=== PATIENT | female | born 1970 | race Caucasian/White ===

== ENCOUNTER 2016-11-13 16:37 | Emergency (ER) | payer MEDICAID ==
[~2016-11-13] VITALS: Ht 170.2 cm; Wt 77.4 kg
[~2016-11-13 16:37] MED LIST: CEPH500C3 PO; TRAD5TAB PO
[2016-11-13 17:00] VITALS: BP 118/85; PULSE 97; RESP 16; TEMP 98.4; O2SAT 100
--- NOTE | 2016-11-13 18:12 | PD ---
HPI Chief Complaint: Medication Refill Request Time Seen by Provider: 18:07 Travel History International Travel<30 days: No Contact w/Intl Traveler<30days: No Traveled to known affect area: No History of Present Illness HPI 46-year-old female presents to the emergency department requesting medication refills on all of her medications. She is diabetic and has high blood pressure and takes Levemir and metoprolol. She does not have the dosages of her medications. Her primary care provider is Dr. Ruiz and cannot get her in. They told her to come in as a walk in on but she cannot go in case she has to work and does not want to lose her job. She has no medical complaints at this time. She denies fever, chills, nausea, vomiting. Denies chest, shortness of breath, abdominal pain, change in stool or urine. Allergic to Cipro, tramadol, acetaminophen. No other modifying factors or associated signs or symptoms. PFSH Past Medical History Hx Anticoagulant Therapy: No Asthma: Yes Cardiovascular Problems: Yes (HTN) Chemotherapy: No Diabetes: Yes Diminished Hearing: No Hypertension: Yes Respiratory: Yes ?: Not Past Surgical History Hysterectomy: Yes Social History Alcohol Use: No (PT DENIES) Tobacco Use: Yes (11/14 PPD) Substance Use: No (PT DENIES) Allergies-Medications (Allergen,Severity, Reaction): Coded Allergies: Cipro (Verified Allergy, Intermediate, Hives, 11/13/16) Tramadol/Acetaminophen (Verified Allergy, Intermediate, Hives, 11/13/16) Reported Meds & Prescriptions Reported Meds & Active Scripts Active Reported Levemir Inj (Insulin Detemir) 1,000 unit/ 10 ML Vial 25 Units SQ HS Do not mix with any other Insulin. Lipitor (Atorvastatin Calcium) 20 Mg Tab 20 Mg PO HS Gabapentin 300 Mg Cap 300 Mg PO BID Fenofibrate Unknown Strength Tab Unknown Dose PO HS Metoprolol Tartrate 25 Mg Tab 25 Mg PO HS Review of Systems Except as stated in HPI: all other systems reviewed are Neg Physical Exam Narrative GENERAL: Well-nourished, well-developed female patient, in no acute distress SKIN: Warm and dry. HEAD: Atraumatic. Normocephalic. EYES: Pupils equal and round. No scleral icterus. No injection or drainage. ENT: Mucosa pink and moist. Airway patent. NECK: Trachea midline. CARDIOVASCULAR: Regular rate and rhythm. No murmur appreciated. RESPIRATORY: No accessory muscle use. Clear to auscultation. Breath sounds equal bilaterally. GASTROINTESTINAL: Abdomen soft, non-tender, nondistended. Hepatic and splenic margins not palpable. Bowel sounds are active 4 quadrants. MUSCULOSKELETAL: No obvious deformities. No clubbing. No cyanosis. No edema. NEUROLOGICAL: Awake and alert. Oriented 3. No obvious cranial nerve deficits. Motor grossly within normal limits. Normal speech. PSYCHIATRIC: Appropriate mood and affect; insight and judgment normal. Data Data Last Documented VS Vital Signs Date Time Temp Pulse Resp B/P Pulse Ox O2 Delivery O2 Flow Rate FiO2 11/13/16 18:12 16 11/13/16 17:00 98.4 97 118/85 100 MDM Medical Decision Making Medical Screen Exam Complete: Yes Emergency Medical Condition: Yes Medical Record Reviewed: Yes Differential Diagnosis Medication refill, malingering, medical clearance Narrative Course 46-year-old female presents requesting medication refills on all her prescriptions. She has no medical complaints at this time. She is diabetic and hypertensive and takes Levemir and metoprolol. She does not know the dosages. Patient called the pharmacy to verify dosages. 1839: Dosage verified and medication refills for metoprolol and Levemir provided. Patient is medically cleared and stable for discharge. Discussed reasons to return to the emergency department. Instructed patient to follow up with primary care provider. Patient agrees with treatment plan. The patients vital signs are stable and the patient is stable for outpatient follow-up and treatment. Patient discharged home, stable and in no acute distress. Diagnosis Primary Impression: Medication refill Referrals: Primary Care Physician Patient Instructions: General Instructions, Medication Refill, ED Additional Instructions: Follow-up with her primary care provider Return to the emergency department immediately with worsening of symptoms Med/Other Pt SpecificInfo: Prescription(s) given Scripts Insulin Detemir Inj (Levemir Inj)1,000 unit/ 10 ML Vial25 Units SQ HS #1 VIAL Ref 0 Do not mix with any other Insulin. Prov:Maryuri Duke 11/13/16 Metoprolol Tartrate 25 Mg Tab25 Mg PO HS #30 TAB Ref 0 Prov:Maryuri Duke 11/13/16 Disposition: DISCHARGE HOME Condition: Stable Maryuri Duke Nov 13, 2016 18:12
[2016-11-13] MEDS ORDERED: METO25TA3 PO ×2 (18:25→18:39)
[2016-11-13] MEDS ORDERED: GABA300C5 PO (18:25)
[2016-11-13] MEDS ORDERED: FENO160T PO (18:25)
[2016-11-13] MEDS ORDERED: LIPI20TA PO (18:25)
[2016-11-13] MEDS ORDERED: LEVEMIR SQ ×2 (18:25→18:39)
== END 2016-11-13 18:57 | disposition home or self-care (01) ==
LOC: PHEFT 16:37
DX: E11.9 Type 2 diabetes mellitus without complications (principal); I10 Essential (primary) hypertension; Z76.0 Encounter for issue of repeat prescription; Z72.0 Tobacco use; Z87.09 Personal history of other diseases of the respiratory system; Z79.84 Long term (current) use of oral hypoglycemic drugs
CPT/HCPCS: 99281

== ENCOUNTER 2017-01-21 21:28 | Emergency (ER) | payer MEDICAID ==
[~2017-01-21] VITALS: Ht 167.6 cm; Wt 78.4 kg
[~2017-01-21 21:28] MED LIST changes: -CEPH500C3 PO; +FENO160T PO; +GABA300C5 PO; +LEVEMIR SQ; +LIPI20TA PO; +METO25TA3 PO; -TRAD5TAB PO
[2017-01-21 21:33] VITALS: BP 125/88; PULSE 95; RESP 18; TEMP 98.7; O2SAT 96
[2017-01-22] MEDS ORDERED: SODIUM CHLOR 0.9% 1000 ML INJ 1,000 ML IV SCH (00:47)
--- NOTE | 2017-01-22 00:47 | PD ---
HPI Chief Complaint: Musculoskeletal Complaint Time Seen by Provider: 00:45 Travel History International Travel<30 days: No Contact w/Intl Traveler<30days: No Traveled to known affect area: No History of Present Illness HPI 46-year-old female presents to the emergency department by private transportation for evaluation of low back pain. Patient states she has had this for some time and is progressive worsening with activity and at rest. Patient denies any injury or fall. Patient also reports that she is diabetic with diabetic neuropathy. Patient states she takes gabapentin without symptom relief. Patient states she last saw her primary care provider 3 months ago. Patient states they've been adjusting her 11 year back and forth. She notes that her blood sugars have remained high. Patient does not report any lower extremity numbness tingling or weakness beyond her chronic diabetic foot neuropathy and does not report any saddle anesthesia or bladder or bowel dysfunction. Patient states that she has pain and her primary provider does not supply her with any pain medication. Patient does receive ibuprofen but states this is upsetting her stomach. The patient rates her pain 8/10 in intensity. Patient also reports that she has also developed a cough that has been coughing so much that she coughs up streaks of blood. Patient denies any fever chills shortness of breath wheezing or chest pain or pleuritic chest pain. PFSH Past Medical History Narrative Medical Hypertension Diabetes chronic pain syndrome; no tobacco use; Nursing notes reviewed Hx Anticoagulant Therapy: No Asthma: Yes Cardiovascular Problems: Yes (HTN) High Cholesterol: Yes Chemotherapy: No Diabetes: Yes Patient Takes Glucophage: No Diminished Hearing: No Hypertension: Yes Respiratory: Yes ?: Not Past Surgical History Hysterectomy: Yes Social History Alcohol Use: No (PT DENIES) Tobacco Use: No (quit one year ago) Substance Use: No (PT DENIES) Allergies-Medications (Allergen,Severity, Reaction): Coded Allergies: Cipro (Verified Allergy, Intermediate, Hives, 01/21/17) Tramadol/Acetaminophen (Verified Allergy, Intermediate, Hives, 01/21/17) Reported Meds & Prescriptions Reported Meds & Active Scripts Active Levemir Inj (Insulin Detemir) 1,000 unit/ 10 ML Vial 25 Units SQ HS Do not mix with any other Insulin. Metoprolol Tartrate 25 Mg Tab 25 Mg PO HS Reported Gabapentin 300 Mg Cap 300 Mg PO BID Fenofibrate Unknown Strength Tab Unknown Dose PO HS Review of Systems Except as stated in HPI: all other systems reviewed are Neg General / Constitutional: No: Fever, Chills Eyes: No: Diploplia, Blurred Vision, Visual changes HENT: No: Headaches, Vertigo, Neck Pain Cardiovascular: Positive: Syncope (near v possible brief syncope), No: Chest Pain or Discomfort Respiratory: No: Shortness of Breath Gastrointestinal: No: Nausea, Vomiting, Abdominal Pain Genitourinary: Positive: Flank Pain, No: Decreased Urinary Output Musculoskeletal: Positive: Myalgias, Arthralgias, Pain (back pain) Skin: No Rash Neurologic: Positive: Headache, No: Weakness, Dizziness Psychiatric: Positive: Anxiety Hematologic/Lymphatic: No: Lymph Node Enlargement Physical Exam Narrative GENERAL: Well-developed well-nourished female in no acute distress no respiratory distress SKIN: Warm and dry. HEAD: Normocephalic. EYES: No scleral icterus. No injection or drainage. NECK: Supple, trachea midline. No JVD or lymphadenopathy. CARDIOVASCULAR: Regular rate and rhythm without murmurs, gallops, or rubs. RESPIRATORY: Breath sounds equal bilaterally. No accessory muscle use. GASTROINTESTINAL: Abdomen soft, non-tender, nondistended. MUSCULOSKELETAL: No cyanosis, or edema. BACK: Nontender without obvious deformity. Bilateral CVA tenderness. Data Data Last Documented VS Vital Signs Date Time Temp Pulse Resp B/P Pulse Ox O2 Delivery O2 Flow Rate FiO2 01/21/17 21:33 98.7 95 18 125/88 96 Room Air Orders Urinalysis - C+S If Indicated (01/22/17 00:47) Iv Access Insert/Monitor (01/22/17 00:47) Ecg Monitoring (01/22/17 00:47) Oximetry (01/22/17 00:47) Sodium Chlor 0.9% 1000 Ml Inj (Ns 1000 M (01/22/17 00:47) Electrocardiogram (01/22/17 00:47) Ed Urine Pregnancytest Poc (01/22/17 00:47) Blood Glucose (01/22/17 00:47) Urine Culture (01/22/17 00:50) Labs Laboratory Tests Test 01/22/17 00:50 Urine Color YELLOW Urine Turbidity SLIGHT Urine pH 5.5 Urine Specific [place] 1.033 Urine Protein NEG mg/dL Urine Glucose (UA) 1000 OR GREATER mg/dL Urine Ketones NEG mg/dL Urine Occult Blood NEG Urine Nitrite NEG Urine Bilirubin NEG Urine Leukocyte Esterase NEG Urine WBC 15-19 /hpf Urine Squamous Epithelial > 8 /hpf Cells Urine Bacteria OCC /hpf Urine Mucus OCC /lpf Microscopic Urinalysis Comment CULTURE INDICATED MDM Medical Decision Making Medical Screen Exam Complete: Yes Emergency Medical Condition: Yes Medical Record Reviewed: Yes Differential Diagnosis Flank pain, UTI, pyelonephritis, renal colic, biliary colic, pancreatitis, gastritis, appendicitis Narrative Course Plan for IV access to be obtained and specimens collected and sent for resulting Informed by patient's nurse that she decided to leave without any intervention and studies were canceled Diagnosis Primary Impression: Left against medical advice Additional Instructions: AMA Disposition: 07 AGAINST MEDICAL ADVICE Condition: Stable Genny Zazueta MD Jan 22, 2017 00:47 Genny Zazueta MD Jan 22, 2017 00:47
[2017-01-22 01:07] LABS: BLOOD, URINE NEG (NEG); KETONE, URINE NEG (NEG); NITRITE,URINE NEG (NEG); PH, URINE 5.5 (5.0-8.5)
[2017-01-22 01:08] LABS: GLUCOSE,URINE 1000 OR GREATER mg/dL (NEG)
[2017-01-22 01:30] LABS: URINE COLOR YELLOW (YELLW/STRAW)
[2017-01-22 01:31] LABS: MUCUS URINE OCC /lpf (OCC); WBC, URINE 15-19 /hpf (0-5)
[2017-01-22 01:32] LABS: BACTERIA, URINE OCC /hpf; COMMENT (UR) CULTURE INDICATED; CULTURE IF INDICATED CULTURE INDICATED; SQUAMOUS EPITHELIAL CELL URINE > 8 /hpf (0-5)
[2017-01-22] MEDS ORDERED: ROBA500T PO (20:24)
[2017-01-22] MEDS ORDERED: NAPR500T PO (20:24)
== END 2017-01-22 01:15 | disposition left against medical advice (07) ==
LOC: PHED 21:28
DX: M54.5 Low back pain (principal); G89.4 Chronic pain syndrome; E78.00 Pure hypercholesterolemia, unspecified; R82.90 Unspecified abnormal findings in urine; E11.40 Type 2 diabetes mellitus with diabetic neuropathy, unspecified; I10 Essential (primary) hypertension; Z79.4 Long term (current) use of insulin
CPT/HCPCS: 81001; 84703; 87086; 99283

== ENCOUNTER 2017-01-22 18:15 | Emergency (ER) | payer MEDICAID ==
[~2017-01-22] VITALS: Ht 167.6 cm; Wt 78.6 kg
[~2017-01-22 18:15] MED LIST changes: -LIPI20TA PO
[2017-01-22 18:29] VITALS: BP 131/88; PULSE 95; RESP 16; TEMP 98.9; O2SAT 95
[2017-01-22] MEDS ORDERED: SODIUM CHLOR 0.9% 1000 ML INJ 1,000 ML IV SCH (18:50)
[2017-01-22] MEDS ORDERED: SODIUM CHLORIDE 0.9% FLUSH 5 ML FLUSH IVF PRN (19:00)
--- NOTE | 2017-01-22 19:03 | PD ---
HPI Chief Complaint: lower back/flank pain Time Seen by Provider: 18:47 Travel History International Travel<30 days: No Contact w/Intl Traveler<30days: No Traveled to known affect area: No History of Present Illness HPI 46-year-old female here for evaluation of lower back pain and right flank pain. The patient reports that she has had these symptoms for over a month, however they've been worse for last 2 days. Pain was worse last night and the patient presented to the emergency department, was seen by a physician, full workup ordered, however the patient left AMA before results were obtained. She reports history of diabetic neuropathy. No trauma. No urinary or bowel incontinence or retention. She had not noted any urinary symptoms until returning home yesterday evening after leaving AMA at which time she noted some dysuria. No paresthesias or motor deficits. Pain is moderate, intermittent, worse with movement and palpation. No nausea or vomiting. No fevers or chills. PFSH Past Medical History Hx Anticoagulant Therapy: No Asthma: Yes Cardiovascular Problems: Yes (HTN) High Cholesterol: Yes Chemotherapy: No Diabetes: Yes Diminished Hearing: No Hypertension: Yes Respiratory: Yes Past Surgical History Hysterectomy: Yes Social History Alcohol Use: No (PT DENIES) Tobacco Use: No (quit one year ago) Substance Use: No (PT DENIES) Allergies-Medications (Allergen,Severity, Reaction): Coded Allergies: Cipro (Verified Allergy, Intermediate, Hives, 01/22/17) Tramadol/Acetaminophen (Verified Allergy, Intermediate, Hives, 01/22/17) Reported Meds & Prescriptions Reported Meds & Active Scripts Active Levemir Inj (Insulin Detemir) 1,000 unit/ 10 ML Vial 25 Units SQ HS Do not mix with any other Insulin. Metoprolol Tartrate 25 Mg Tab 25 Mg PO HS Reported Gabapentin 300 Mg Cap 300 Mg PO BID Fenofibrate Unknown Strength Tab Unknown Dose PO HS Review of Systems Except as stated in HPI: all other systems reviewed are Neg Physical Exam Narrative GENERAL: Well-developed, well-nourished, sitting on stretcher, eating [place] food SKIN: Warm and dry. No rash. HEAD: Atraumatic. Normocephalic. EYES: Pupils equal and round. No scleral icterus. No injection or drainage. ENT: Mucous membranes pink and moist. NECK: Trachea midline. No JVD. CARDIOVASCULAR: Regular rate and rhythm. RESPIRATORY: No accessory muscle use. Clear to auscultation. Breath sounds equal bilaterally. GASTROINTESTINAL: Abdomen soft, non-tender, nondistended. MUSCULOSKELETAL: No obvious deformities. No clubbing. No cyanosis. No edema. No midline vertebral step-off or tenderness. Mild right CVA tenderness. No left CVA tenderness. NEUROLOGICAL: Awake and alert. No obvious cranial nerve deficits. Motor grossly within normal limits. Normal speech. PSYCHIATRIC: Appropriate mood and affect; insight and judgment normal. Data Data Last Documented VS Vital Signs Date Time Temp Pulse Resp B/P Pulse Ox O2 Delivery O2 Flow Rate FiO2 01/22/17 19:31 16 01/22/17 19:25 98.9 90 131/88 98 01/22/17 19:24 Room Air Orders Complete Blood Count With Diff (01/22/17 18:50) Comprehensive Metabolic Panel (01/22/17 18:50) Lipase (01/22/17 18:50) Prothrombin Time / Inr (Pt) (01/22/17 18:50) Act Partial Throm Time (Ptt) (01/22/17 18:50) Urinalysis - C+S If Indicated (01/22/17 18:50) Ct Abd/Pel W/O Iv Contrast (01/22/17 18:50) Iv Access Insert/Monitor (01/22/17 18:50) Ecg Monitoring (01/22/17 18:50) Oximetry (01/22/17 18:50) Sodium Chlor 0.9% 1000 Ml Inj (Ns 1000 M (01/22/17 18:50) Sodium Chloride 0.9% Flush (Ns Flush) (01/22/17 19:00) Labs Laboratory Tests Test 01/22/17 01/22/17 19:15 19:30 White Blood Count 6.4 TH/MM3 Red Blood Count 5.03 MIL/MM3 Hemoglobin 14.1 GM/DL Hematocrit 41.8 % Mean Corpuscular Volume 83.0 FL Mean Corpuscular Hemoglobin 28.0 PG Mean Corpuscular Hemoglobin 33.8 % Concent Red Cell Distribution Width 12.3 % Platelet Count 311 TH/MM3 Mean Platelet Volume 8.7 FL Neutrophils (%) (Auto) % CBC Comment AUTO DIFF Prothrombin Time 10.7 SEC Prothromb Time International 1.0 RATIO Ratio Activated Partial 27.1 SEC Thromboplast Time Sodium Level 140 MEQ/L Potassium Level 3.3 MEQ/L Chloride Level 102 MEQ/L Carbon Dioxide Level 23.1 MEQ/L Anion Gap 15 MEQ/L Blood Urea Nitrogen 15 MG/DL Creatinine 0.81 MG/DL Estimat Glomerular Filtration 76 ML/MIN Rate Random Glucose 371 MG/DL Calcium Level 9.0 MG/DL Total Bilirubin 0.4 MG/DL Aspartate Amino Transf 10 U/L (AST/SGOT) Alanine Aminotransferase 42 U/L (ALT/SGPT) Alkaline Phosphatase 113 U/L Total Protein 7.4 GM/DL Albumin 3.7 GM/DL Lipase 142 U/L Urine Color YELLOW Urine Turbidity CLEAR Urine pH 5.5 Urine Specific [place] GREATER THAN 1.035 Urine Protein NEG mg/dL Urine Glucose (UA) 1000 OR GREATER mg/dL Urine Ketones NEG mg/dL Urine Occult Blood NEG Urine Nitrite NEG Urine Bilirubin NEG Urine Leukocyte Esterase NEG Urine RBC 0-3 /hpf Urine Squamous Epithelial 0-5 /hpf Cells Urine Mucus OCC /lpf Microscopic Urinalysis Comment CULT NOT INDICATED MDM Medical Decision Making Medical Screen Exam Complete: Yes Emergency Medical Condition: Yes Medical Record Reviewed: Yes Differential Diagnosis Nephrolithiasis, pyelonephritis, ureterolithiasis, UTI, cystitis, appendicitis, colitis, diverticulitis, pancreatitis Narrative Course Vital signs show heart rate 90, blood pressure 131/80, pulse ox 98% on room air , oral temp of 98.9F. CBC is unremarkable. CMP is remarkable for potassium 3.3, random glucose 371, otherwise unremarkable. Bicarbonate is 23.1. The patient is not in DKA. Lipase is 142. UA shows 1000 glucose, negative occult blood, not suggestive of UTI. CT abdomen pelvis: CONCLUSION: 1. The kidneys are unremarkable in appearance with no renal calculi or obstruction. 2. The liver is mildly prominent with diffuse fatty infiltration. 3. The gallbladder is unremarkable. The patient was made aware of all findings. She is resting comfortably. Her flank pain sounds for a musculoskeletal in origin. She was given Toradol for this. She was given a dose of insulin for her hyperglycemia. She is not in DKA. She is stable for discharge home with outpatient follow-up with her primary care physician this week. She was informed on when to return to the emergency department. She verbalizes understanding and agreement with plan. Diagnosis Primary Impression: Right flank pain Additional Impression: Hyperglycemia Referrals: Primary Care Physician 3 days Additional Instructions: Follow-up with your primary care physician this week. Return to the emergency department for worsening symptoms or any other concerns. Scripts Methocarbamol (Robaxin)500 Mg [id number] Mg PO TID #15 TAB Ref 0 Prov:Jez Connolly MD 01/22/17 Naproxen 500 Mg [id number] Mg PO BID 14 Days Ref 0 Prov:Jez Connolly MD 01/22/17 Disposition: 01 DISCHARGE HOME Condition: Stable Jez Connolly MD Jan 22, 2017 19:03
[2017-01-22 19:24] VITALS: O2SAT 98
[2017-01-22 19:25] VITALS: BP 131/88; PULSE 90; RESP 16; TEMP 98.9; O2SAT 98
[2017-01-22 19:32] LABS: CHLORIDE 102 MEQ/L (98-107); POTASSIUM 3.3 MEQ/L (3.5-5.1); SODIUM (NA) 140 MEQ/L (136-145)
[2017-01-22 19:36] LABS: ANION GAP 15 MEQ/L (5-15); APTT (PATIENT) 27.1 SEC (24.3-30.1); BICARBONATE 23.1 MEQ/L (21.0-32.0); BLOOD UREA NITROGEN 15 MG/DL (7-18); PROTHROMBIN TIME - PATIENT 10.7 SEC (9.8-11.6)
[2017-01-22 19:39] LABS: ALT (GPT) 42 U/L (10-53); AST (GOT) 10 U/L (15-37); GLOMERULAR FILTRATION RATE 76 ML/MIN (>89)
[2017-01-22 19:40] LABS: TOTAL BILIRUBIN ADULT 0.4 MG/DL (0.2-1.0)
[2017-01-22 19:41] LABS: ALKALINE PHOSPHATASE 113 U/L (45-117)
[2017-01-22 19:46] LABS: BLOOD, URINE NEG (NEG); KETONE, URINE NEG (NEG); NITRITE,URINE NEG (NEG); PH, URINE 5.5 (5.0-8.5)
--- NOTE | 2017-01-22 19:52 | RADHPO ---
EXAM DATE/TIME: 01/22/2017 19:16 [facility] COMPARISON: No previous studies available for comparison. INDICATIONS : Right flank and back pain. ORAL CONTRAST: No oral contrast ingested. RADIATION DOSE: 23.00 CTDIvol (mGy) MEDICAL HISTORY : Hypertension. Diabetes mellitus type 2. SURGICAL HISTORY : Hysterectomy. ENCOUNTER: Initial ACUITY: 2 days PAIN SCALE: 8/10 LOCATION: Right flank TECHNIQUE: Volumetric scanning of the abdomen and pelvis was performed. Using automated exposure control and ad justment of the mA and/or kV according to patient size, radiation dose was kept as low as reasonably achievable to obtain optimal diagnostic quality images. FINDINGS: LOWER LUNGS: The visualized lower lungs are clear. LIVER: Homogeneous density without lesion. The liver is mildly prominent with diffuse fatty infiltration. Th ere is no dilation of the biliary tree. No calcified gallstones. SPLEEN: Normal size without lesion. PANCREAS: Within normal limits. KIDNEYS: Normal in size and shape. There is no mass, stone, or hydronephrosis. ADRENAL GLANDS: Within normal limits. VASCULAR: There is no aortic aneurysm. BOWEL/MESENTERY: The stomach, small bowel, and colon demonstrate no acute abnormality. There is no free intraperitone al air or fluid. ABDOMINAL WALL: Within normal limits. RETROPERITONEUM: There is no lymphadenopathy. BLADDER: No wall thickening or mass. REPRODUCTIVE: Within normal limits. INGUINAL: There is no lymphadenopathy or hernia. MUSCULOSKELETAL: Within normal limits for patient age. CONCLUSION: 1. The kidneys are unremarkable in appearance with no renal calculi or obstruction. 2. The liver is mildly prominent with diffuse fatty infiltration. 3. The gallbladder is unremarkable. Syed Chong MD on January 22, 2017 at 19:48 Board Certified Radiologist. This report was verified electronically.
[2017-01-22 19:55] LABS: GLUCOSE,URINE 1000 OR GREATER mg/dL (NEG)
[2017-01-22 20:05] LABS: URINE COLOR YELLOW (YELLW/STRAW)
[2017-01-22 20:06] LABS: MUCUS URINE OCC /lpf (OCC); RBC, URINE 0-3 /hpf (0-3); SQUAMOUS EPITHELIAL CELL URINE 0-5 /hpf (0-5)
[2017-01-22 20:07] LABS: COMMENT (UR) CULT NOT INDICATED; CULTURE IF INDICATED CULT NOT INDICATED
[2017-01-22 20:11] LABS: HEMATOCRIT 41.8 % (35.0-46.0); MEAN CORPUSCULAR HGB CONC 33.8 % (32.0-36.0); PLATELET COUNT 311 TH/MM3 (150-450); RED BLOOD COUNT 5.03 MIL/MM3 (4.00-5.30); RED CELL DISTRIBUTION WIDTH 12.3 % (11.6-17.2); WHITE BLOOD COUNT 6.4 TH/MM3 (4.0-11.0)
[2017-01-22 20:15] LABS: HEMO FLAGS AUTO DIFF
[2017-01-22] MEDS ORDERED: ROBA500T PO (20:24)
[2017-01-22] MEDS ORDERED: NAPR500T PO (20:24)
[2017-01-22] MEDS ORDERED: KETOROLAC TROMETHAMINE 30 MG/ML (IVP) VIAL IV PUSH ONE (20:30)
[2017-01-22] MEDS ORDERED: INSULIN HUMAN REGULAR 1,000 UNITS/10 ML VIAL SQ ONE (20:30)
[2017-01-22 20:42] LABS: BASOPHILS 1 % (0-2); EOSINOPHILS 5 % (0-4); NEUTROPHIL # MANUAL DIFF 3.6 TH/MM3 (1.8-7.7); POLYS (SEG NEUTROPHILS) 56 % (16-70); WBC DIFF SAMPLE 100
[2017-01-22 20:43] LABS: PLATELET ESTIMATE SMEAR NORMAL (NORMAL); PLATELET MORPHOLOGY CLUMPED (NORMAL); SCAN/DIFF FINAL DIFF MANUAL
[2017-01-22 20:57] VITALS: BP 124/76
[2017-01-22 21:01] VITALS: RESP 16
== END 2017-01-22 21:03 | disposition home or self-care (01) ==
LOC: PHED 18:15
DX: M54.5 Low back pain (principal); E11.65 Type 2 diabetes mellitus with hyperglycemia; J45.909 Unspecified asthma, uncomplicated; I10 Essential (primary) hypertension; E78.00 Pure hypercholesterolemia, unspecified; Z87.891 Personal history of nicotine dependence
CPT/HCPCS: 74176; 80053; 81001; 83690; 85007; 85027; 85610; 85730; 96361; 96372; 96374; 99284; J1815; J1885; J7030

== ENCOUNTER 2017-03-07 19:14 | Emergency (ER) | payer SELFPAY ==
[~2017-03-07] VITALS: Ht 167.6 cm; Wt 79.5 kg
[~2017-03-07 19:14] MED LIST changes: +NAPR500T PO; +ROBA500T PO
[2017-03-07 19:18] VITALS: BP 136/90; PULSE 102; RESP 16; TEMP 98.9
--- NOTE | 2017-03-07 19:58 | PD ---
HPI Chief Complaint: Flank/Kidney Pain Time Seen by Provider: 19:52 Travel History International Travel<30 days: No Contact w/Intl Traveler<30days: No Traveled to known affect area: No History of Present Illness HPI The patient is a 46-year-old female that complains of right flank pain since January. She knows that it is in the musculoskeletal area, she states she was already seen for this before and they checked her kidneys out and liver out and was all normal. She does not have a primary care physician because she does not have insurance. There is no radiation of pain. She denies any dysuria, frequency or urgency. She denies any nausea, vomiting or diarrhea. She denies any cough or shortness of breath. PFSH Past Medical History Hx Anticoagulant Therapy: No Asthma: Yes Cardiovascular Problems: Yes (HTN) High Cholesterol: Yes Chemotherapy: No Cerebrovascular Accident: Yes (TIA about 5 years ago) Diabetes: Yes Patient Takes Glucophage: No Diminished Hearing: No Hypertension: Yes Respiratory: Yes (ashtma) ?: Not Past Surgical History Hysterectomy: Yes Social History Alcohol Use: No (PT DENIES) Tobacco Use: No (quit one year ago) Substance Use: No (PT DENIES) Allergies-Medications (Allergen,Severity, Reaction): Coded Allergies: Cipro (Verified Allergy, Intermediate, Hives, 03/07/17) Tramadol/Acetaminophen (Verified Allergy, Intermediate, Hives, 03/07/17) Reported Meds & Prescriptions Reported Meds & Active Scripts Active Robaxin (Methocarbamol) 500 Mg Tab 500 Mg PO TID Naproxen 500 Mg Tab 500 Mg PO BID 14 Days Levemir Inj (Insulin Detemir) 1,000 unit/ 10 ML Vial 25 Units SQ HS Do not mix with any other Insulin. Metoprolol Tartrate 25 Mg Tab 25 Mg PO HS Reported Gabapentin 300 Mg Cap 300 Mg PO BID Fenofibrate Unknown Strength Tab Unknown Dose PO HS Review of Systems Except as stated in HPI: all other systems reviewed are Neg Physical Exam Narrative GENERAL: Well-nourished, well-developed patient in moderate apparent distress with her right rib pain. Her vital signs show blood pressure 136/90 with heart rate of 102 but otherwise normal. SKIN: Focused skin assessment warm/dry. HEAD: Normocephalic. EYES: No scleral icterus. No injection or drainage. NECK: Supple, trachea midline. No JVD or lymphadenopathy. CARDIOVASCULAR: Regular rate and rhythm without murmurs, gallops, or rubs. I can completely reproduce the patient's pain by pressing on the right chest wall. Movements also reproduce her pain. RESPIRATORY: Breath sounds equal bilaterally. No accessory muscle use. Lungs clear to auscultation bilaterally. GASTROINTESTINAL: Abdomen soft, non-tender, nondistended. MUSCULOSKELETAL: No cyanosis, or edema. BACK: Nontender without obvious deformity. No CVA tenderness except for the rib tenderness. Data Data Last Documented VS Vital Signs Date Time Temp Pulse Resp B/P Pulse Ox O2 Delivery O2 Flow Rate FiO2 03/07/17 19:18 98.9 102 16 136/90 MDM Medical Decision Making Medical Screen Exam Complete: Yes Emergency Medical Condition: Yes Medical Record Reviewed: Yes Differential Diagnosis Right rib pain, pneumothorax day shift and likely, ACShighly unlikely, pleurisy , muscle strain Narrative Course The patient appears to have chronic rib pain. She is a poor candidate for long- term narcotics since this pain appears to be chronic for her. Plan: The patient be given Motrin, 600 mg 3 times daily. She will also get a Toradol shot here. Diagnosis Primary Impression: Rib pain on right side Additional Instructions: Take the Motrin regularly, 13 times daily. This will give you high anti- inflammatory levels and usually this helps the pain. Follow-up with a primary care physician. He will also get a work excuse for no lifting over 10 pounds. Med/Other Pt SpecificInfo: Prescription(s) given Disposition: 01 DISCHARGE HOME Condition: Stable Luis Genao MD Mar 07, 2017 19:58
[2017-03-07] MEDS ORDERED: IBUP-232 PO (19:59)
[2017-03-07] MEDS ORDERED: KETOROLAC TROMETHAMINE 60 MG/2 ML (IM) VIAL IM ONE (20:00)
== END 2017-03-07 20:27 | disposition home or self-care (01) ==
LOC: PHED 19:14
DX: R07.81 Pleurodynia (principal); J45.909 Unspecified asthma, uncomplicated; I10 Essential (primary) hypertension; E11.9 Type 2 diabetes mellitus without complications
CPT/HCPCS: 96372; 99283; J1885

== ENCOUNTER 2017-06-10 19:56 | Inpatient (IN) | payer SELFPAY ==
[~2017-06-10] VITALS: Ht 167.6 cm; Wt 77.6 kg
[~2017-06-10 19:56] MED LIST changes: +IBUP-232 PO
[2017-06-10 20:02] VITALS: BP 138/76; PULSE 111; RESP 12; TEMP 98.4; O2SAT 97
[2017-06-10] MEDS ORDERED: SODIUM CHLOR 0.9% 1000 ML INJ 1,000 ML IV SCH (21:00)
[2017-06-10] MEDS ORDERED: ONDANSETRON HCL 4 MG/2 ML VIAL IVP ONE (21:00)
[2017-06-10 21:25] VITALS: BP 126/80; PULSE 94; RESP 18; TEMP 99.1; O2SAT 96; O2SAT 98
[2017-06-10 21:25] LABS: BLOOD, URINE TRACE (NEG); KETONE, URINE NEG (NEG); NITRITE,URINE NEG (NEG)
[2017-06-10 21:27] LABS: HEMATOCRIT 42.8 % (35.0-46.0); MEAN CELL VOLUME 81.7 FL (80.0-100.0); MEAN CORPUSCULAR HEMOGLOBIN 27.3 PG (27.0-34.0); MEAN CORPUSCULAR HGB CONC 33.4 % (32.0-36.0); PLATELET COUNT 267 TH/MM3 (150-450); RED BLOOD COUNT 5.23 MIL/MM3 (4.00-5.30); WHITE BLOOD COUNT 5.6 TH/MM3 (4.0-11.0)
[2017-06-10] MEDS: SODIUM CHLORIDE 0.9% FLUSH 10 ML FLUSH IV FLUSH PRN (21:31)
[2017-06-10 21:34] LABS: APTT (PATIENT) 28.9 SEC (24.3-30.1); PROTHROMBIN TIME - PATIENT 10.8 SEC (9.8-11.6)
[2017-06-10 21:35] LABS: GLUCOSE,URINE 1000 OR GREATER mg/dL (NEG); URINE COLOR YELLOW (YELLW/STRAW)
[2017-06-10 21:36] LABS: RBC, URINE 0-3 /hpf (0-3)
[2017-06-10 21:37] LABS: COMMENT (UR) CULT NOT INDICATED; CULTURE IF INDICATED CULT NOT INDICATED
[2017-06-10 21:41] LABS: HEMO FLAGS AUTO DIFF
[2017-06-10 21:44] LABS: POTASSIUM 3.6 MEQ/L (3.5-5.1)
--- NOTE | 2017-06-10 21:53 | PD ---
HPI Chief Complaint: GI Complaint Time Seen by Provider: 20:54 Travel History International Travel<30 days: No Contact w/Intl Traveler<30days: No Traveled to known affect area: No History of Present Illness HPI Patient is a 47 year old female who comes in complaining of abdominal pain and vomiting for the past week. She says that the pain has been mostly in her upper abdomen. She says she vomits every morning. She has not had any fever or chills. She denies chest pain or SOB. She has history of diabetes, but has not been able to afford her medication since January. She denies drug or alcohol use. PFSH Past Medical History Hx Anticoagulant Therapy: No Asthma: Yes Cardiovascular Problems: Yes (HTN) High Cholesterol: Yes Chemotherapy: No Cerebrovascular Accident: Yes (TIA about 5 years ago) Diabetes: Yes Patient Takes Glucophage: No Diminished Hearing: No Hypertension: Yes Respiratory: Yes (asha) Tetanus Vaccination: < 5 Years Influenza Vaccination: No ?: Not Past Surgical History Gynecologic Surgery: Yes (hysterectomy) Hysterectomy: Yes Social History Alcohol Use: No (PT DENIES) Tobacco Use: No (quit one year ago) Substance Use: No (PT DENIES) Allergies-Medications (Allergen,Severity, Reaction): Coded Allergies: Cipro (Verified Allergy, Intermediate, Hives, 06/10/17) Tramadol/Acetaminophen (Verified Allergy, Intermediate, Hives, 06/10/17) Reported Meds & Prescriptions Reported Meds & Active Scripts Active Ibuprofen 600 Mg Tab 600 Mg PO TID Robaxin (Methocarbamol) 500 Mg Tab 500 Mg PO TID Naproxen 500 Mg Tab 500 Mg PO BID 14 Days Levemir Inj (Insulin Detemir) 1,000 unit/ 10 ML Vial 25 Units SQ HS Do not mix with any other Insulin. Metoprolol Tartrate 25 Mg Tab 25 Mg PO HS Reported Gabapentin 300 Mg Cap 300 Mg PO BID Fenofibrate Unknown Strength Tab Unknown Dose PO HS Review of Systems Except as stated in HPI: all other systems reviewed are Neg General / Constitutional: No: Fever, Chills HENT: No: Headaches, Lightheadedness Cardiovascular: No: Chest Pain or Discomfort Respiratory: No: Shortness of Breath Gastrointestinal: Positive: Nausea, Vomiting, Abdominal Pain, No: Diarrhea Genitourinary: No: Dysuria Musculoskeletal: No: Edema, Pain Skin: No Rash, No Itching Neurologic: No: Weakness, Dizziness Physical Exam Narrative GENERAL: Awake and alert, in no acute distress. SKIN: Focused skin assessment warm/dry. HEAD: Atraumatic. Normocephalic. EYES: Pupils equal and round. No injection or drainage. Scleral icterus. ENT: Mucous membranes pink and moist. Yellow discoloration under the tongue. NECK: Trachea midline. No JVD. CARDIOVASCULAR: Regular rate and rhythm. No murmur appreciated. RESPIRATORY: No accessory muscle use. Clear to auscultation. Breath sounds equal bilaterally. GASTROINTESTINAL: Abdomen soft, nondistended. Tender to palpation of the left side of the abdomen. No rebound or guarding. MUSCULOSKELETAL: No obvious deformities. No clubbing. No cyanosis. No edema. NEUROLOGICAL: Awake and alert. No obvious cranial nerve deficits. Motor grossly within normal limits. Normal speech. PSYCHIATRIC: Appropriate mood and affect; insight and judgment normal. Data Data Last Documented VS Vital Signs Date Time Temp Pulse Resp B/P Pulse Ox O2 Delivery O2 Flow Rate FiO2 06/11/17 00:34 93 18 121/72 98 Room Air 06/10/17 21:25 99.1 Orders Basic Metabolic Panel (Bmp) (06/10/17 21:00) Complete Blood Count With Diff (06/10/17 21:00) Lipase (06/10/17 21:00) Prothrombin Time / Inr (Pt) (06/10/17 21:00) Act Partial Throm Time (Ptt) (06/10/17 21:00) Urinalysis - C+S If Indicated (06/10/17 21:00) Ua Includes Microscopic (06/10/17 21:00) Ct Abd/Pel W Iv Contrast(Rout) (06/10/17 21:00) Us Abdomen Gallbladder (06/10/17 ) Iv Access Insert/Monitor (06/10/17 21:00) Ecg Monitoring (06/10/17 21:00) Oximetry (06/10/17 21:00) Ondansetron Inj (Zofran Inj) (06/10/17 21:00) Sodium Chlor 0.9% 1000 Ml Inj (Ns 1000 M (06/10/17 21:00) Sodium Chloride 0.9% Flush (Ns Flush) (06/10/17 21:00) Hepatic Functional Panel (06/10/17 21:00) Insulin Human Regular Inj (Novolin R Inj (06/10/17 22:45) Insulin Human Regular Inj (Novolin R Inj (06/10/17 23:00) Morphine Inj (Morphine Inj) (06/11/17 01:15) Piperacil-Tazo 3.375 Gm Premix (Zosyn 3. (06/11/17 01:45) Consult General Surgery (06/11/17 ) Admit Order (Ed Use Only) (06/11/17 ) Mri Mrcp W/O Contrast (06/11/17 ) Labs Laboratory Tests Test 06/10/17 06/10/17 06/10/17 21:00 21:15 21:18 White Blood Count 5.6 TH/MM3 Red Blood Count 5.23 MIL/MM3 Hemoglobin 14.3 GM/DL Hematocrit 42.8 % Mean Corpuscular Volume 81.7 FL Mean Corpuscular Hemoglobin 27.3 PG Mean Corpuscular Hemoglobin 33.4 % Concent Red Cell Distribution Width 13.0 % Platelet Count 267 TH/MM3 Mean Platelet Volume 8.4 FL Neutrophils (%) (Auto) % CBC Comment AUTO DIFF Differential Total Cells 100 Counted Neutrophils % (Manual) 55 % Band Neutrophils % 2 % Lymphocytes % 32 % Monocytes % 10 % Eosinophils % 1 % Neutrophils # (Manual) 3.2 TH/MM3 Differential Comment FINAL DIFF MANUAL Atypical Lymphocytes % Platelet Estimate NORMAL Platelet Morphology Comment NORMAL Red Cell Morphology Comment NORMAL Prothrombin Time 10.8 SEC Prothromb Time International 1.0 RATIO Ratio Activated Partial 28.9 SEC Thromboplast Time Sodium Level 131 MEQ/L Potassium Level 3.6 MEQ/L Chloride Level 96 MEQ/L Carbon Dioxide Level 24.0 MEQ/L Anion Gap 11 MEQ/L Blood Urea Nitrogen 9 MG/DL Creatinine 0.72 MG/DL Estimat Glomerular Filtration 87 ML/MIN Rate Random Glucose 446 MG/DL Calcium Level 9.0 MG/DL Total Bilirubin 12.3 MG/DL Direct Bilirubin 10.2 MG/DL Indirect Bilirubin 2.1 MG/DL Aspartate Amino Transf 999 U/L (AST/SGOT) Alanine Aminotransferase 924 U/L (ALT/SGPT) Alkaline Phosphatase 720 U/L Total Protein 6.4 GM/DL Albumin 3.0 GM/DL Lipase 145 U/L Urine Color YELLOW Urine Turbidity CLEAR Urine pH 6.0 Urine Specific [place] GREATER THAN 1.035 Urine Protein NEG mg/dL Urine Glucose (UA) 1000 OR GREATER mg/dL Urine Ketones NEG mg/dL Urine Occult Blood TRACE Urine Nitrite NEG Urine Bilirubin MOD Urine Leukocyte Esterase NEG Urine RBC 0-3 /hpf Urine WBC 3-5 /hpf Urine Squamous Epithelial 6-8 /hpf Cells Microscopic Urinalysis Comment CULT NOT INDICATED MDM Medical Decision Making Medical Screen Exam Complete: Yes Emergency Medical Condition: Yes Medical Record Reviewed: Yes Differential Diagnosis Cholecystitis versus liver failure versus biliary obstruction versus pancreatitis versus pancreatic mass Narrative Course Patient is a 47-year-old female who comes in complaining of abdominal pain with nausea and vomiting. Exam shows scleral icterus. IV status, labs sent. Labs show a total bilirubin of 12 with a direct bili of 10. AST and ALT are in the 900s. Ultrasound shows a contracted gallbladder. CT of the abdomen and pelvis shows gallbladder wall thickening with likely sludge within the gallbladder. This is acute versus chronic cholecystitis. I spoke with Dr. Proctor, he will see the patient. Patient given Zosyn, will require MRCP. Admitted for further management. Diagnosis Primary Impression: Cholecystitis Additional Impressions: Abnormal liver function tests Hyperbilirubinemia Admitting Information Admitting Physician Requests: Admit Condition: Stable Althea Aponte MD Jun 10, 2017 21:53
[2017-06-10 22:34] LABS: INDIRECT BILIRUBIN 2.1 MG/DL (0.0-0.8); TOTAL BILIRUBIN ADULT 12.3 MG/DL (0.2-1.0)
[2017-06-10 22:38] VITALS: BP 122/74; PULSE 91; RESP 18; O2SAT 97
[2017-06-10] MEDS ORDERED: INSULIN HUMAN REGULAR 1,000 UNITS/10 ML VIAL IV PUSH ONE ×2 (22:45→23:00)
[2017-06-10 22:49] LABS: BANDS 2 % (0-6); EOSINOPHILS 1 % (0-4); NEUTROPHIL # MANUAL DIFF 3.2 TH/MM3 (1.8-7.7); POLYS (SEG NEUTROPHILS) 55 % (16-70); WBC DIFF SAMPLE 100
[2017-06-10 22:52] LABS: PLATELET ESTIMATE SMEAR NORMAL (NORMAL); PLATELET MORPHOLOGY NORMAL (NORMAL); SCAN/DIFF FINAL DIFF MANUAL
--- NOTE | 2017-06-10 23:04 | RADRPT ---
EXAM DATE/TIME: 06/10/2017 21:51 [facility] COMPARISON: No previous studies available for comparison. INDICATIONS : Right upper quadrant pain. MEDICAL HISTORY : Hypercholesterolemia. Hypertension. Cerebrovascular accident. Asthma. Diabetes. SURGICAL HISTORY : Hysterectomy. ENCOUNTER: Initial ACUITY: 3 days PAIN SCORE: 9/10 LOCATION: Right upper quadrant. MEASUREMENTS: LIVER: 21.6 cm length COMMON DUCT: 4 mm RIGHT KIDNEY: 12.2 x 6.2 x 6.0. cm FINDINGS: LIVER: Normal echotexture without focal lesion or ductal dilatation. Hepatopedal flow seen in the portal ve in. COMMON DUCT: No intraluminal mass or stone visualized. GALLBLADDER: The gallbladder is contracted and very little lumen is discernible. There is associated thickening o f the gallbladder wall which is nonspecific given the lack of distention of gallbladder. PANCREAS: The visualized portions are within normal limits. RIGHT KIDNEY: No evidence of hydronephrosis, stone, or mass. CONCLUSION: 1. Nondiagnostic exam of the gallbladder given the lack of distention. Gallbladder pathology can nei ther be included or excluded. May consider hepatobiliary tract scan if cholecystitis is suspected cl inically. 2. Hepatomegaly without focal lesion. Raul Ferrara MD on June 10, 2017 at 22:58 Board Certified Radiologist. This report was verified electronically.
[2017-06-11] VITALS (7 sets, daily range): BP systolic 106–133; BP diastolic 67–84; PULSE 67–93; RESP 17–20; TEMP 96.2–101.1; O2SAT 94–98
--- NOTE | 2017-06-11 00:49 | RADRPT ---
EXAM DATE/TIME: 06/10/2017 23:49 [facility] COMPARISON: US ABDOMEN - GALLBLADDER, June 10, 2017, 21:51. CT ABDOMEN & PELVIS W/O CONTRAST, January 22, 2017, 19 :16. INDICATIONS : Nausea, dizziness and abdominal pain. Abnormal gallbladder on ultrasound exam. IV CONTRAST: 100 cc Omnipaque 350 (iohexol) IV ORAL CONTRAST: No oral contrast ingested. RADIATION DOSE: 12.30 CTDIvol (mGy) MEDICAL HISTORY : Cerebrovascular disease. diabetes, asthma SURGICAL HISTORY : Hysterectomy. ENCOUNTER: Initial ACUITY: 1 day PAIN SCALE: 5/10 LOCATION: abdomen TECHNIQUE: Volumetric scanning of the abdomen and pelvis was performed. Using automated exposure control and ad justment of the mA and/or kV according to patient size, radiation dose was kept as low as reasonably achievable to obtain optimal diagnostic quality images. DICOM format image data is available electro nically for review and comparison. FINDINGS: LOWER LUNGS: The visualized lower lungs are clear. LIVER: Homogeneous density without lesion. There is no dilation of the biliary tree. The gallbladder is abn ormal in appearance with apparent diffuse wall thickening. There is higher density material in the ap parent lumen. No definite calcified gallstones identified. There is no surrounding inflammatory ramos e. SPLEEN: Normal size without lesion. PANCREAS: Within normal limits. KIDNEYS: Normal in size and shape. There is no mass, stone or hydronephrosis. ADRENAL GLANDS: Within normal limits. VASCULAR: There is no aortic aneurysm. BOWEL/MESENTERY: The stomach, small bowel, and colon demonstrate no acute abnormality. There is no free intraperitone al air or fluid. ABDOMINAL WALL: Within normal limits. RETROPERITONEUM: There is no lymphadenopathy. BLADDER: No wall thickening or mass. REPRODUCTIVE: Within normal limits. INGUINAL: There is no lymphadenopathy or hernia. MUSCULOSKELETAL: Within normal limits for patient age. CONCLUSION: 1. Abnormal gallbladder with apparent wall thickening. High-density material is present in the appare nt lumen more centrally with no definite calcified gallstones. This may represent sludge. These findi ngs could indicate acute or chronic cholecystitis. 2. No evidence of biliary obstruction. Syed Chong MD on June 11, 2017 at 0:43 Board Certified Radiologist. This report was verified electronically.
[2017-06-11] MEDS ORDERED: MORPHINE SULFATE 4 MG/ML INJ IV PUSH ONE (01:15)
[2017-06-11] MEDS: SODIUM CHLORIDE 0.9% FLUSH 10 ML FLUSH IV FLUSH PRN (01:31)
[2017-06-11] MEDS ORDERED: PIPERACIL-TAZO 3.375 GM PREMIX 50 ML IV ONE (01:45)
[2017-06-11] MEDS ORDERED: NALOXONE HCL 0.4 MG/ML AMP IV PRN (01:45)
[2017-06-11] MEDS: SODIUM CHLOR 0.9% 1000 ML INJ 1,000 ML IV SCH ×3 (02:03→22:51)
[2017-06-11] MEDS ORDERED: IOHEXOL 350 MG/ML 10 ML VIAL (for RAD DIAG) IV ONE (02:18)
[2017-06-11] MEDS: ONDANSETRON HCL 4 MG/2 ML VIAL IVP PRN (04:09)
[2017-06-11] MEDS: HYDROmorphone HCL PF 1 MG/ML VIAL IV PUSH PRN ×2 (06:16→17:38)
[2017-06-11] MEDS: SODIUM CHLORIDE 0.9% FLUSH 10 ML FLUSH IV FLUSH SCH ×2 (08:34→21:00)
[2017-06-11] MEDS ORDERED: DEXTROSE 50% IN WATER 50 ML VIAL(D50) IV PRN (09:00)
[2017-06-11] MEDS ORDERED: GLUCAGON 1 MG/ML VIAL OTHER PRN (09:00)
[2017-06-11 10:02] LABS: HEMATOCRIT 39.9 % (35.0-46.0); MEAN CELL VOLUME 83.4 FL (80.0-100.0); MEAN CORPUSCULAR HEMOGLOBIN 27.7 PG (27.0-34.0); MEAN CORPUSCULAR HGB CONC 33.2 % (32.0-36.0); PLATELET COUNT 236 TH/MM3 (150-450); RED BLOOD COUNT 4.78 MIL/MM3 (4.00-5.30); RED CELL DISTRIBUTION WIDTH 13.4 % (11.6-17.2); WHITE BLOOD COUNT 4.7 TH/MM3 (4.0-11.0)
[2017-06-11] MEDS: PIPERACIL-TAZO 4.5 GM PREMIX 100 ML IV SCH ×3 (10:02→20:20)
[2017-06-11 10:05] LABS: HEMO FLAGS AUTO DIFF
[2017-06-11 10:06] LABS: CHLORIDE 102 MEQ/L (98-107); POTASSIUM 3.2 MEQ/L (3.5-5.1); SODIUM (NA) 137 MEQ/L (136-145)
[2017-06-11 10:13] LABS: ANION GAP 6 MEQ/L (5-15); BICARBONATE 28.7 MEQ/L (21.0-32.0)
[2017-06-11 10:28] LABS: ALKALINE PHOSPHATASE 591 U/L (45-117); ALT (GPT) 893 U/L (10-53); AST (GOT) 1283 U/L (15-37); BLOOD UREA NITROGEN 8 MG/DL (7-18); GLOMERULAR FILTRATION RATE 116 ML/MIN (>89); TOTAL BILIRUBIN ADULT 11.9 MG/DL (0.2-1.0)
--- NOTE | 2017-06-11 10:35 | PD.CONS ---
cc: Bear Proctor MD HPI Service General Surgery Consult Requested By Dr. Patrick Reason for Consult Acute cholecystitis Primary Care Physician No Primary Care Physician History of Present Illness This is a 47-year-old female with a past medical history of asthma, hypertension , hypercholesterolemia, TIA and diabetes mellitus. The patient has had ongoing abdominal pain with associated nausea vomiting for 1 week. She has been unable to tolerate anything by mouth. She reports the pain as sharp and rates it as [address] of the abdomen and pelvis was obtained which showed abnormal gallbladder wall thickening and sludge. Her liver enzymes are elevated including her total bilirubin which is 12.3. She noticed prior to admission that her eyes and skin have a tint of yellow to them. A General Surgery consultation has been requested for evaluation of acute cholecystitis. Review of Systems Constitutional: COMPLAINS OF: Fatigue, Change in appetite, DENIES: Chills Endocrine: DENIES: Polydipsia, Polyuria, Polyphagia Eyes: DENIES: Blurred vision Ears, nose, mouth, throat: DENIES: Hearing loss, Vertigo Respiratory: DENIES: Cough, Snoring Cardiovascular: DENIES: Chest pain Gastrointestinal: COMPLAINS OF: Abdominal pain, Nausea, Vomiting Genitourinary: DENIES: Urinary frequency Musculoskeletal: DENIES: Joint pain Integumentary: COMPLAINS OF: Abnormal pigmentation Hematologic/lymphatic: DENIES: Bruising Immunologic/allergic: DENIES: Eczema Neurologic: DENIES: Headache, Localized weakness, Paresthesias Psychiatric: DENIES: Depression, Hallucinations Past Family Social History Past Medical History Asthma Hypertension Hypercholesterolemia TIA Diabetes mellitus Past Surgical History Hysterectomy Reported Medications None Allergies: Coded Allergies: Cipro (Verified Allergy, Intermediate, Hives, 06/10/17) Tramadol/Acetaminophen (Verified Allergy, Intermediate, Hives, 06/10/17) Active Ordered Medications Current Medications Medications (Trade) Dose Ordered Sig/[place] Route Start Time Stop Time Status Last Admin (NS 1000 ml Inj) 1,000 ml @ 100 mls/hr Q10H IV 06/11/17 01:35 06/11/17 02:03 (NS Flush) 2 ml UNSCH PRN IV FLUSH 06/11/17 01:45 (NS Flush) 2 ml BID IV FLUSH 06/11/17 09:00 (Zofran Inj) 4 mg Q6H PRN IVP 06/11/17 01:45 06/11/17 04:09 (Narcan Inj) 0.4 mg UNSCH PRN IV 06/11/17 01:45 Hydromorphone HCl 0.2 mg 0.2 mg Q4H PRN IV PUSH 06/11/17 01:45 06/11/17 06:16 (Zosyn 4.5 Gm Premix) 100 ml @ 200 mls/hr Q6H IV 06/11/17 08:00 06/11/17 10:02 (D50w (Vial) Inj) 50 ml UNSCH PRN IV 06/11/17 09:00 (Glucagon Inj) 1 mg UNSCH PRN OTHER 06/11/17 09:00 Family History Noncontributory Social History Denies current tobacco use; has smoked cigarettes in the past Denies EtOH use Device was drug use Physical Exam Vital Signs Vital Signs Date Time Temp Pulse Resp B/P Pulse Ox O2 Delivery O2 Flow Rate FiO2 06/11/17 08:00 97.8 74 17 108/67 97 06/11/17 04:00 97.6 81 20 106/67 97 06/11/17 01:56 18 06/11/17 00:34 93 18 121/72 98 Room Air 06/10/17 22:38 91 18 122/74 97 Room Air 06/10/17 21:25 99.1 94 18 126/80 96 Room Air 06/10/17 21:25 18 06/10/17 21:25 18 98 Room Air 06/10/17 20:02 98.4 111 12 138/76 97 Physical Exam GENERAL: 47-year-old female resting in bed in no acute distress SKIN: Warm and dry. Mild jaundice. HEAD: Atraumatic. Normocephalic. EYES: Pupils equal and round. No injection or drainage. Sclerae are jaundice. ENT: No nasal bleeding or discharge. Mucous membranes pink and moist. NECK: Trachea midline. CARDIOVASCULAR: Regular rate and rhythm. RESPIRATORY: No accessory muscle use. Clear to auscultation. Breath sounds equal bilaterally. GASTROINTESTINAL: Abdomen soft; generalized abdominal pain with palpation in all 4 quadrants; tenderness greatest in the right upper quadrant. Low transverse incision well healed. MUSCULOSKELETAL: Extremities without clubbing, cyanosis, or edema. No obvious deformities. NEUROLOGICAL: Awake and alert. No obvious cranial nerve deficits. Motor grossly within normal limits. Five out of 5 muscle strength in the arms and legs. Normal speech. PSYCHIATRIC: Appropriate mood and affect; insight and judgment normal. Laboratory Laboratory Tests Test 06/10/17 06/10/17 06/10/17 06/11/17 21:00 21:15 21:18 09:25 White Blood Count 5.6 4.7 Red Blood Count 5.23 4.78 Hemoglobin 14.3 13.2 Hematocrit 42.8 39.9 Mean Corpuscular Volume 81.7 83.4 Mean Corpuscular Hemoglobin 27.3 27.7 Mean Corpuscular Hemoglobin 33.4 33.2 Concent Red Cell Distribution Width 13.0 13.4 Platelet Count 267 236 Mean Platelet Volume 8.4 8.3 Neutrophils (%) (Auto) CBC Comment AUTO DIFF AUTO DIFF Differential Total Cells 100 Counted Neutrophils % (Manual) 55 Band Neutrophils % 2 Lymphocytes % 32 Monocytes % 10 Eosinophils % 1 Neutrophils # (Manual) 3.2 Differential Comment FINAL DIFF MANUAL Atypical Lymphocytes Platelet Estimate NORMAL Platelet Morphology Comment NORMAL Red Cell Morphology Comment NORMAL Prothrombin Time 10.8 Prothromb Time International 1.0 Ratio Activated Partial 28.9 Thromboplast Time Sodium Level 131 137 Potassium Level 3.6 3.2 Chloride Level 96 102 Carbon Dioxide Level 24.0 28.7 Anion Gap 11 6 Blood Urea Nitrogen 9 Creatinine 0.72 Estimat Glomerular Filtration 87 Rate Random Glucose 446 Calcium Level 9.0 8.3 Total Bilirubin 12.3 Direct Bilirubin 10.2 Indirect Bilirubin 2.1 Aspartate Amino Transf 999 (AST/SGOT) Alanine Aminotransferase 924 (ALT/SGPT) Alkaline Phosphatase 720 Total Protein 6.4 Albumin 3.0 2.5 Lipase 145 Urine Color YELLOW Urine Turbidity CLEAR Urine pH 6.0 Urine Specific [place] GREATER THAN 1.035 Urine Protein NEG Urine Glucose (UA) 1000 OR GREATER Urine Ketones NEG Urine Occult Blood TRACE Urine Nitrite NEG Urine Bilirubin MOD Urine Leukocyte Esterase NEG Urine RBC 0-3 Urine WBC 3-5 Urine Squamous Epithelial 6-8 Cells Microscopic Urinalysis Comment CULT NOT INDICATED Result Diagram: 06/14/17 0540 06/17/17 0540 Imaging Last 48 hours Impressions Abdomen/Pelvis CT 06/10/17 2100 Signed Impressions: Service Date/Time: Saturday, June 10, 2017 23:49 - CONCLUSION: 1. Abnormal gallbladder with apparent wall thickening. High-density material is present in the apparent lumen more centrally with no definite calcified gallstones. This may represent sludge. These findings could indicate acute or chronic cholecystitis. 2. No evidence of biliary obstruction. Syed Chong MD Gall Bladder Ultrasound 06/10/17 0000 Signed Impressions: Service Date/Time: Saturday, June 10, 2017 21:51 - CONCLUSION: 1. Nondiagnostic exam of the gallbladder given the lack of distention. Gallbladder pathology can neither be included or excluded. May consider hepatobiliary tract scan if cholecystitis is suspected clinically. 2. Hepatomegaly without focal lesion. Raul Ferrara MD Assessment and Plan Assessment and Plan 47 year old female with acute cholecystitis; elevated liver enzymes -MRCP today -Labs in AM -NPO -Consult GI for elevated liver enzymes and need for possible ERCP -If needs ERCP; will need to be transferred to [facility] -Needs diabetic education. -Thank you for this consult; we will continue to follow and plan laparoscopic cholecystectomy pending MRCP and labs Discussed Condition With Dr. Hitesh Louise Attending Statement patient seen at bedside very high lfts unlikely that gallbladder is primary consult gi for eval will continue to follow Attestation The exam, history, and the medical decision-making described in the above note were completed with the assistance of the mid-level provider. I reviewed and agree with the findings presented. I attest that I had a [id number] encounter with the patient on the same day, and personally performed and documented my assessment and findings in the medical record. Rebecca Ayala Jun 11, 2017 10:35 Bear Proctor MD Jun 17, 2017 21:43
[2017-06-11 10:42] LABS: EOSINOPHILS 2 % (0-4); NEUTROPHIL # MANUAL DIFF 3.3 TH/MM3 (1.8-7.7); PLATELET ESTIMATE SMEAR NORMAL (NORMAL); PLATELET MORPHOLOGY NORMAL (NORMAL); POLYS (SEG NEUTROPHILS) 70 % (16-70); SCAN/DIFF FINAL DIFF MANUAL; WBC DIFF SAMPLE 100
--- NOTE | 2017-06-11 11:14 | HHI.HP ---
[facility] Service [facility] Primary Care Physician No Primary Care Physician Admission Diagnosis cholecysitis Diagnoses: Chief Complaint: Abdominal pain Travel History International Travel<30 Days: No Contact w/Intl Traveler <30 Da: No Traveled to Known Affected Are: No History of Present Illness Patient is a 47-year-old female with a history of diabetes who comes in with at least a week of worsening abdominal pain. Infectious had intermittent abdominal discomfort with eating for the last year. She says if she eats fatty foods are heavy meals her stomach hurts and she feels nauseated. The last week this has gotten worse. She tried taking ibuprofen and there was no relief. Here she has had relief with IV Dilaudid. Patient noted also that she had pelvic stools and dark colored urine and had become yellow. She came to the emergency room for further evaluation. Patient's town have elevated LFTs and evidence of acute cholecystitis by clinical exam of a Gallego sign and by CT abdomen and pelvis. Patient was seen by surgery recommended for further evaluation. She has been started on IV antibiotics and IV fluids and follow bit better. Review of Systems Constitutional: COMPLAINS OF: Fatigue, Chills, Change in appetite Endocrine: DENIES: Abnorml menstrual pattern, Heat/cold intolerance, Polydipsia , Polyuria, Polyphagia Eyes: DENIES: Blurred vision, Diplopia, Eye inflammation, Eye pain, Vision loss , Photosensitivity, Double Vision Ears, nose, mouth, throat: DENIES: Tinnitus, Hearing loss, Vertigo, Nasal discharge, Oral lesions, Throat pain, Hoarseness, Ear Pain, Running Nose, Epistaxis, Sinus Pain, Toothache, Odynophagia Respiratory: DENIES: Apneas, Cough, Snoring, Wheezing, Hemoptysis, Sputum production, Shortness of breath Cardiovascular: DENIES: Chest pain, Palpitations, Syncope, Dyspnea on Exertion , PND, Lower Extremity Edema, Orthopnea, Claudication Gastrointestinal: COMPLAINS OF: Abdominal pain, Nausea, Vomiting Genitourinary: DENIES: Abnormal vaginal bleeding, Dysmenorrhea, Dyspareunia, Sexual dysfunction, Urinary frequency, Urinary incontinence, Urgency, Hematuria , Dysuria, Nocturia, Vaginal discharge Musculoskeletal: DENIES: Joint pain, Muscle aches, Stiffness, Joint Swelling, Back pain, Neck pain Integumentary: DENIES: Abnormal pigmentation, Pruritus, Rash, Nail changes, Breast masses, Breast skin changes, Nipple discharge Hematologic/lymphatic: DENIES: Bruising, Lymphadenopathy Neurologic: DENIES: Abnormal gait, Headache, Localized weakness, Paresthesias, Seizures, Speech Problems, Tremor, Poor Balance Psychiatric: COMPLAINS OF: Anxiety, DENIES: Confusion, Mood changes, Depression, Hallucinations, Agitation, Suicidal Ideation, Homicidal Ideation, Delusions Except as stated in HPI: all other systems reviewed are Neg Past Family Social History Past Medical History Nonadherence to medical treatment Anxiety Diabetes Hypertension Past Surgical History Hysterectomy Reported Medications Reviewed and the medical record, patient takes no home medications due to non adherence Allergies: Coded Allergies: Cipro (Verified Allergy, Intermediate, Hives, 06/10/17) Tramadol/Acetaminophen (Verified Allergy, Intermediate, Hives, 06/10/17) Active Ordered Medications Reviewed in the medical record Family History Hypertension and diabetes Social History No tobacco or alcohol, lives with her boyfriend, works at [employer] Physical Exam Vital Signs Vital Signs Date Time Temp Pulse Resp B/P Pulse Ox O2 Delivery O2 Flow Rate FiO2 06/11/17 08:00 97.8 74 17 108/67 97 06/11/17 04:00 97.6 81 20 106/67 97 06/11/17 01:56 18 06/11/17 00:34 93 18 121/72 98 Room Air 06/10/17 22:38 91 18 122/74 97 Room Air 06/10/17 21:25 99.1 94 18 126/80 96 Room Air 06/10/17 21:25 18 06/10/17 21:25 18 98 Room Air 06/10/17 20:02 98.4 111 12 138/76 97 Physical Exam GENERAL: This is a well-nourished, well-developed patient, jaundice and anxious SKIN: No rashes, ecchymoses or lesions. Cool and dry. HEAD: Atraumatic. Normocephalic. No temporal or scalp tenderness. EYES: Pupils equal round and reactive. Extraocular motions intact. No scleral icterus. No injection or drainage. ENT: Nose without bleeding, purulent drainage or septal hematoma. Throat without erythema, tonsillar hypertrophy or exudate. Uvula midline. Airway patent. NECK: Trachea midline. No JVD or lymphadenopathy. Supple, nontender, no meningeal signs. CARDIOVASCULAR: Regular rate and rhythm without murmurs, gallops, or rubs. RESPIRATORY: Clear to auscultation. Breath sounds equal bilaterally. No wheezes , rales, or rhonchi. GASTROINTESTINAL: Abdomen soft, Gallego sign positive, mildly distended. No hepato-splenomegaly, or palpable masses. No guarding. MUSCULOSKELETAL: Extremities without clubbing, cyanosis, or edema. No joint tenderness, effusion, or edema noted. No calf tenderness. Negative Homans sign bilaterally. NEUROLOGICAL: Awake and alert. Cranial nerves II through XII intact. Motor and sensory grossly within normal limits. Five out of 5 muscle strength in all muscle groups. Normal speech. Laboratory Laboratory Tests Test 06/10/17 06/10/17 06/10/17 06/11/17 21:00 21:15 21:18 09:25 White Blood Count 5.6 4.7 Red Blood Count 5.23 4.78 Hemoglobin 14.3 13.2 Hematocrit 42.8 39.9 Mean Corpuscular Volume 81.7 83.4 Mean Corpuscular Hemoglobin 27.3 27.7 Mean Corpuscular Hemoglobin 33.4 33.2 Concent Red Cell Distribution Width 13.0 13.4 Platelet Count 267 236 Mean Platelet Volume 8.4 8.3 Neutrophils (%) (Auto) CBC Comment AUTO DIFF AUTO DIFF Differential Total Cells 100 100 Counted Neutrophils % (Manual) 55 70 Band Neutrophils % 2 Lymphocytes % 32 20 Monocytes % 10 8 Eosinophils % 1 2 Neutrophils # (Manual) 3.2 3.3 Differential Comment FINAL DIFF FINAL DIFF MANUAL MANUAL Atypical Lymphocytes Platelet Estimate NORMAL NORMAL Platelet Morphology Comment NORMAL NORMAL Red Cell Morphology Comment NORMAL NORMAL Prothrombin Time 10.8 Prothromb Time International 1.0 Ratio Activated Partial 28.9 Thromboplast Time Sodium Level 131 137 Potassium Level 3.6 3.2 Chloride Level 96 102 Carbon Dioxide Level 24.0 28.7 Anion Gap 11 6 Blood Urea Nitrogen 9 8 Creatinine 0.72 0.56 Estimat Glomerular Filtration 87 116 Rate Random Glucose 446 221 Calcium Level 9.0 8.3 Total Bilirubin 12.3 11.9 Direct Bilirubin 10.2 Indirect Bilirubin 2.1 Aspartate Amino Transf 999 1283 (AST/SGOT) Alanine Aminotransferase 924 893 (ALT/SGPT) Alkaline Phosphatase 720 591 Total Protein 6.4 5.6 Albumin 3.0 2.5 Lipase 145 Urine Color YELLOW Urine Turbidity CLEAR Urine pH 6.0 Urine Specific [place] GREATER THAN 1.035 Urine Protein NEG Urine Glucose (UA) 1000 OR GREATER Urine Ketones NEG Urine Occult Blood TRACE Urine Nitrite NEG Urine Bilirubin MOD Urine Leukocyte Esterase NEG Urine RBC 0-3 Urine WBC 3-5 Urine Squamous Epithelial 6-8 Cells Microscopic Urinalysis Comment CULT NOT INDICATED Result Diagram: 06/11/1792406/11/17 0925 Imaging Last Impressions Abdomen/Pelvis CT 06/10/17 2100 Signed Impressions: Service Date/Time: Saturday, June 10, 2017 23:49 - CONCLUSION: 1. Abnormal gallbladder with apparent wall thickening. High-density material is present in the apparent lumen more centrally with no definite calcified gallstones. This may represent sludge. These findings could indicate acute or chronic cholecystitis. 2. No evidence of biliary obstruction. Syed Chong MD Gall Bladder Ultrasound 06/10/17 0000 Signed Impressions: Service Date/Time: Saturday, June 10, 2017 21:51 - CONCLUSION: 1. Nondiagnostic exam of the gallbladder given the lack of distention. Gallbladder pathology can neither be included or excluded. May consider hepatobiliary tract scan if cholecystitis is suspected clinically. 2. Hepatomegaly without focal lesion. Raul Ferrara MD Assessment and Plan Problem List: (1) Abnormal liver function tests ICD Code: R79.89 Status: Acute Plan: Like due to stone; Viral studies pending (2) Cholecystitis ICD Code: K81.9 Status: Acute Plan: Empiric Zosyn Gen Surg eval appreciated; Gi consult pending MRCP pending, may need ERCP IV Dilaudid prn (3) DM2 (diabetes mellitus, type 2) ICD Code: E11.9 Status: Acute Plan: Uncontrolled due to non-adherence SSI, Education HGA1c pending (4) Anxiety ICD Code: F41.9 Status: Acute Plan: Continuing with anxiolytics IV Assessment and Plan Plan of care to be determined by Hospital course Code Status Full code Discussed Condition With Patient, nursing team Physician Certification 2 Midnight Certification Type: Admission for Inpatient Services (3) Order for Inpatient Services The services are ordered in accordance with Medicare regulations or non- Medicare payer requirements, as applicable. In the case of services not specified as inpatient-only, they are appropriately provided as inpatient services in accordance with the 2-midnight benchmark. Estimated LOS (days): 3 3 days is the estimated time the patient will need to remain in the hospital, assuming treatment plan goals are met and no additional complications. Post-Hospital Plan: Home Amy Shcumacher MD Jun 11, 2017 11:14
[2017-06-11] MEDS: LORazepam 2 MG/ML VIAL IV PUSH PRN (11:48)
[2017-06-11] MEDS: PANTOPRAZOLE SODIUM 40 MG VIAL IV PUSH SCH (11:48)
[2017-06-11] MEDS: POTASSIUM CHLORIDE 20 MEQ PWD PACKET PO SCH ×2 (11:53→20:20)
[2017-06-11] MEDS: INSULIN ASPART SUPPLEMENTAL SCALE SQ SCH ×3 (11:56→22:55)
--- NOTE | 2017-06-11 13:29 | RADRPT ---
EXAM DATE/TIME: 06/11/2017 12:17 [facility] COMPARISON: CT ABDOMEN & PELVIS W CONTRAST, June 10, 2017, 23:49. INDICATIONS : Jaundice. Epigastric pain. MEDICAL HISTORY : Hypertension. Diabetes mellitus type 2. SURGICAL HISTORY : Hysterectomy. ENCOUNTER: Subsequent ACUITY: 2 day PAIN SCORE: 3/10 LOCATION: Right upper quadrant abdomen. TECHNIQUE: Multiplanar, multisequence magnetic resonance imaging of the abdomen was performed. High-resolution 3D dataset was utilized to reconstruct maximum-intensity projection (MIP) images. FINDINGS: Patient was unable to cooperate with the examination and examination quality is degraded by patient m ovement. Patient terminated the examination prematurely. INTRAHEPATIC BILE DUCTS: Evaluation of the ducts is limited but no intrahepatic bile duct dilatation is identified. EXTRAHEPATIC BILE DUCTS: Common bile duct measures approximately 3 mm. GALLBLADDER: Gallbladder is decompressed with diffuse gallbladder wall edema. No stones are visualized. LIVER: The liver measures 24.8 cm. Signal intensity is within normal limits. There is mild periportal edema centrally and there is fluid/edema along the hepatoduodenal ligament. No lesion is seen on this nonco ntrast exam. PANCREAS: The main pancreatic duct is normal in size. Signal intensity is within normal limits. No mass is vi sualized on this non-contrast exam. OTHER: The spleen is enlarged measuring 14.8 cm. Otherwise, the remaining visualized structures demonstrate no acute abnormality on this non-contrast exam. CONCLUSION: 1. The intrahepatic and extrahepatic bile ducts are not well evaluated due to patient motion. However , the common bile duct is normal in size. There are no findings to indicate a common duct stone. 2. Diffuse gallbladder wall edema with nonspecific edema and fluid along the hepatoduodenal ligament and mild central periportal edema. 3. Mild splenomegaly. Eugene Erwin MD on June 11, 2017 at 13:14 Board Certified Radiologist. This report was verified electronically.
[2017-06-11 14:23] LABS: HDL CHOLESTEROL 10.5 MG/DL (40.0-60.0)
[2017-06-11 17:01] LABS: HEMOGLOBIN A1a 1.1 %; HEMOGLOBIN Ao 76.8 %; HEMOGLOBIN F 1.6 %; HEMOGLOBIN LA1C 2.6 %; HEMOGLOBIN P3 4.9 %
--- NOTE | 2017-06-11 19:58 | MB ---
cc: ALEXANDER MONTES M.D. DATE OF 1970 DATE OF CONSULTATION 06/11/2017 REASON FOR CONSULTATION Abdominal pain. HISTORY OF THE PRESENT ILLNESS Thank you for the consultation. A 47-year-old lady who has a history of diabetes. The patient came with a history of at least one week of abdominal pain mostly in the right upper quadrant area, usually happens after eating and mostly fatty foods. The pain was 8-9/10 in the right upper quadrant sometimes radiology towards the back. The patient had no diarrhea. She responded okay to pain medications. She had light stool and dark colored urine. In the emergency room she had physical examination positive for Gallego sign. REVIEW OF SYSTEMS All 12 point negative except history of present illness. ALLERGIES CIPRO AND TRAMADOL. FAMILY HISTORY Significant for diabetes and hypertension. SOCIAL HISTORY No tobacco or alcohol. PAST SURGICAL HISTORY Hysterectomy. PAST MEDICAL HISTORY 1. Hypertension. 2. Diabetes. 3. Anxiety. 4. Noncompliance with medications. PHYSICAL EXAMINATION GENERAL: Alert and oriented, no acute distress at this time. VITAL SIGNS: Stable. HEENT: Pupils round and reactive to light. NECK: Supple. CHEST: Clear to auscultation and percussion. CARDIOVASCULAR: Regular rate and rhythm. ABDOMEN: Soft. Mild tenderness in the right upper quadrant mostly, with Gallego sign even though it is less than what documented in the chart, most likely related to pain medications. No hepatosplenomegaly. Mild obesity. EXTREMITIES: No edema, clubbing or cyanosis. NEUROLOGICAL: Intact. PSYCHIATRIC: Appropriate. Gross movements of muscles were normal. LABORATORY DATA White count 4.7, hemoglobin 13.2, platelet count 237. INR 1.0. Sodium 137, potassium 3.2, creatinine 0.56. Glucose 221. Total bilirubin 11.9. AST 1283, ALT 893. Alkaline phosphatase 591. Triglycerides 596. IMAGING Cholangiogram with MRCP showed intrahepatic and extrahepatic ducts are not well evaluated due the patient's motion. However, the common bile duct is normal in size. There are no findings to indicate common bile duct stone. Diffuse gallbladder wall edema with nonspecific edema fluid around it. Mild splenomegaly. Ultrasound non diagnostic examination of the gallbladder given the lack of distention. ASSESSMENT AND PLAN A 47-year-old lady with abdominal pain mostly in the right upper quadrant with Gallego sign most likely cholecystitis. The liver enzymes are significantly elevated so it could be that she has another etiology with acute hepatitis but from talking to Dr. Lau in radiology, he thinks that the gallbladder wall is very thickened and most likely inflamed. The options here are either take the patient to lap cholecystectomy and remove her gallbladder and do a liver biopsy at the same time or wait for a day or two and see if her liver enzymes start going down significantly and her pain subsides. But at this point there is no indication for ERCP. We will check blood for hepatitis profile just to make sure that there is no viral acute hepatitis. Further plan depends on how she is doing. MD OSCAR Renteria/ARAM /7:23 PM /7:32 PM
[2017-06-12] VITALS: TEMP 99.8
[2017-06-12] MEDS: ONDANSETRON HCL 4 MG/2 ML VIAL IVP PRN (00:53)
[2017-06-12] MEDS: LORazepam 2 MG/ML VIAL IV PUSH PRN (01:00)
[2017-06-12] MEDS: PIPERACIL-TAZO 4.5 GM PREMIX 100 ML IV SCH ×4 (01:47→20:31)
[2017-06-12] MEDS: HYDROmorphone HCL PF 1 MG/ML VIAL IV PUSH PRN ×2 (01:50→11:02)
[2017-06-12 04:00] VITALS: BP 122/80; PULSE 86; RESP 20; TEMP 98.9; O2SAT 93
[2017-06-12 06:18] LABS: HEMATOCRIT 38.2 % (35.0-46.0); MEAN CELL VOLUME 82.6 FL (80.0-100.0); MEAN CORPUSCULAR HEMOGLOBIN 27.6 PG (27.0-34.0); MEAN CORPUSCULAR HGB CONC 33.5 % (32.0-36.0); PLATELET COUNT 206 TH/MM3 (150-450); RED BLOOD COUNT 4.63 MIL/MM3 (4.00-5.30); RED CELL DISTRIBUTION WIDTH 13.1 % (11.6-17.2); WHITE BLOOD COUNT 4.4 TH/MM3 (4.0-11.0)
[2017-06-12 06:20] LABS: CHLORIDE 101 MEQ/L (98-107); POTASSIUM 3.3 MEQ/L (3.5-5.1); SODIUM (NA) 137 MEQ/L (136-145)
[2017-06-12] MEDS: INSULIN ASPART SUPPLEMENTAL SCALE SQ SCH ×4 (06:20→20:52)
[2017-06-12] MEDS: SODIUM CHLOR 0.9% 1000 ML INJ 1,000 ML IV SCH (06:23)
[2017-06-12 06:25] LABS: ANION GAP 9 MEQ/L (5-15); BICARBONATE 27.3 MEQ/L (21.0-32.0); BLOOD UREA NITROGEN 6 MG/DL (7-18)
[2017-06-12 06:28] LABS: ALT (GPT) 818 U/L (10-53)
[2017-06-12 06:29] LABS: GLOMERULAR FILTRATION RATE 121 ML/MIN (>89)
[2017-06-12 06:30] LABS: TOTAL BILIRUBIN ADULT 11.3 MG/DL (0.2-1.0)
[2017-06-12 06:31] LABS: ALKALINE PHOSPHATASE 508 U/L (45-117)
[2017-06-12 06:38] LABS: AST (GOT) 1051 U/L (15-37)
[2017-06-12 06:51] LABS: HEMO FLAGS AUTO DIFF
[2017-06-12 07:33] LABS: BANDS 2 % (0-6); BASOPHILS 1 % (0-2); EOSINOPHILS 1 % (0-4); NEUTROPHIL # MANUAL DIFF 2.9 TH/MM3 (1.8-7.7); PLATELET ESTIMATE SMEAR NORMAL (NORMAL); PLATELET MORPHOLOGY NORMAL (NORMAL); POLYS (SEG NEUTROPHILS) 64 % (16-70); SCAN/DIFF FINAL DIFF MANUAL; WBC DIFF SAMPLE 100
[2017-06-12 08:00] VITALS: BP 127/80; PULSE 86; RESP 24; TEMP 99.9; O2SAT 94
[2017-06-12] MEDS: SODIUM CHLORIDE 0.9% FLUSH 10 ML FLUSH IV FLUSH SCH ×2 (08:25→20:31)
[2017-06-12] MEDS: POTASSIUM CHLORIDE 20 MEQ PWD PACKET PO SCH ×2 (08:26→20:31)
[2017-06-12] MEDS: PANTOPRAZOLE SODIUM 40 MG VIAL IV PUSH SCH (11:07)
--- NOTE | 2017-06-12 11:26 | HHI.PR ---
Subjective Remarks Patient seen and evaluated in follow-up for acute cholecystitis, transaminitis and diabetes. Patient tolerating Zosyn without difficulty. General surgery and GI consultation appreciated. MRCP unremarkable for obstruction or stone. Patient likely will need cholecystectomy when LFTs improved. Still requiring IV morphine Objective Vitals Vital Signs Date Time Temp Pulse Resp B/P Pulse Ox O2 Delivery O2 Flow Rate FiO2 06/12/17 08:00 99.9 86 24 127/80 94 06/12/17 04:00 98.9 86 20 122/80 93 06/12/17 00:00 99.8 06/11/17 23:00 101.1 87 20 131/78 94 06/11/17 20:00 97.9 87 20 133/84 96 06/11/17 16:00 97.7 76 18 112/72 97 06/11/17 12:00 97.4 74 18 106/67 95 I/O 06/11/17 06/11/17 06/11/17 06/12/17 06/12/17 06/12/17 07:00 15:00 23:00 07:00 15:00 23:00 Intake Total 0 ml 2021 ml 1045 ml Balance 0 ml 2021 ml 1045 ml Intake Oral 0 ml 240 ml 360 ml IV Total 0 ml 1781 ml 685 ml # Voids 1 3 5 3 # Bowel Movements 0 0 0 Result Diagram: 06/12/17 0440 06/12/17 0440 Imaging Last Impressions Cholangiopancreatography MRI 06/11/17 0000 Signed Impressions: Service Date/Time: Sunday, June 11, 2017 12:17 - CONCLUSION: 1. The intrahepatic and extrahepatic bile ducts are not well evaluated due to patient motion. However, the common bile duct is normal in size. There are no findings to indicate a common duct stone. 2. Diffuse gallbladder wall edema with nonspecific edema and fluid along the hepatoduodenal ligament and mild central periportal edema. 3. Mild splenomegaly. Eugene Erwin MD Abdomen/Pelvis CT 06/10/17 2100 Signed Impressions: Service Date/Time: Saturday, June 10, 2017 23:49 - CONCLUSION: 1. Abnormal gallbladder with apparent wall thickening. High-density material is present in the apparent lumen more centrally with no definite calcified gallstones. This may represent sludge. These findings could indicate acute or chronic cholecystitis. 2. No evidence of biliary obstruction. Syed Chong MD Gall Bladder Ultrasound 06/10/17 0000 Signed Impressions: Service Date/Time: Saturday, June 10, 2017 21:51 - CONCLUSION: 1. Nondiagnostic exam of the gallbladder given the lack of distention. Gallbladder pathology can neither be included or excluded. May consider hepatobiliary tract scan if cholecystitis is suspected clinically. 2. Hepatomegaly without focal lesion. Raul Ferrara MD Objective Remarks GENERAL: This is a well-nourished, well-developed patient, jaundice CARDIOVASCULAR: Regular rate and rhythm without murmurs, gallops, or rubs. RESPIRATORY: Clear to auscultation. Breath sounds equal bilaterally. No wheezes , rales, or rhonchi. GASTROINTESTINAL: Abdomen soft, non-tender, nondistended. Normal active bowel sounds MUSCULOSKELETAL: Extremities without clubbing, cyanosis, or edema. NEURO: Alert & Oriented x4 to person, place, time, situation. Moves all ext x4 A/P Problem List: (1) Abnormal liver function tests ICD Code: R79.89 Status: Acute Plan: Improved somewhat hep panel pending (2) Cholecystitis ICD Code: K81.9 Status: Acute Plan: Empiric Zosyn Gen Surg eval appreciated; Gi consult appreciated MRCP shows no stone, no need for ERCP IV Morphine prn (3) DM2 (diabetes mellitus, type 2) ICD Code: E11.9 Status: Acute Plan: Uncontrolled due to non-adherence SSI, Education HGA1c pending levemir (4) Anxiety ICD Code: F41.9 Status: Acute Plan: Continuing with anxiolytics po (5) Hypokalemia ICD Code: E87.6 Status: Acute Plan: Replace and check magnesium Amy Schumacher MD Jun 12, 2017 11:26
[2017-06-12 12:00] VITALS: BP 116/78; PULSE 87; RESP 20; TEMP 97.8; O2SAT 95
[2017-06-12 16:00] VITALS: BP 117/79; PULSE 87; RESP 20; TEMP 99; O2SAT 96
--- NOTE | 2017-06-12 16:14 | HHI.GIFU ---
GI Follow-up Note Consult Follow-up Subjective: Patient laying in bed comfortably, no new complaints except abdominal pain Objective: PHYSICAL EXAMINATION: Vitals signs stable No fever HEENT: Pupils round and reactive to light; normocephalic; atraumatic; no jaundice. Throat is clear. NECK: Neck is supple, no JVD, no lymphadenopathy. CHEST: Chest is clear to auscultation and percussion. CARDIAC: Regular rate and rhythm with no murmur gallop or rubs. ABDOMEN: Soft, nondistended, nontender; no hepatosplenomegaly; bowel sounds are present in all four quadrants. EXTREMITIES: No clubbing, cyanosis, or edema. SKIN: Normal; no rash; no jaundice. FRANCHISE MANAGER: No focal deficits; alert and oriented times three. Available Data (labs, X- Rays, Procedues) : Last Impressions Cholangiopancreatography MRI 06/11/17 0000 Signed Impressions: Service Date/Time: Sunday, June 11, 2017 12:17 - CONCLUSION: 1. The intrahepatic and extrahepatic bile ducts are not well evaluated due to patient motion. However, the common bile duct is normal in size. There are no findings to indicate a common duct stone. 2. Diffuse gallbladder wall edema with nonspecific edema and fluid along the hepatoduodenal ligament and mild central periportal edema. 3. Mild splenomegaly. Eugene Erwin MD Abdomen/Pelvis CT 06/10/17 2100 Signed Impressions: Service Date/Time: Saturday, June 10, 2017 23:49 - CONCLUSION: 1. Abnormal gallbladder with apparent wall thickening. High-density material is present in the apparent lumen more centrally with no definite calcified gallstones. This may represent sludge. These findings could indicate acute or chronic cholecystitis. 2. No evidence of biliary obstruction. Syed Chong MD Gall Bladder Ultrasound 06/10/17 0000 Signed Impressions: Service Date/Time: Saturday, June 10, 2017 21:51 - CONCLUSION: 1. Nondiagnostic exam of the gallbladder given the lack of distention. Gallbladder pathology can neither be included or excluded. May consider hepatobiliary tract scan if cholecystitis is suspected clinically. 2. Hepatomegaly without focal lesion. Raul Ferrara MD Laboratory Tests Test 06/10/17 06/10/17 06/10/17 06/11/17 21:00 21:15 21:18 09:25 White Blood Count 5.6 TH/MM3 4.7 TH/MM3 Red Blood Count 5.23 MIL/MM3 4.78 MIL/MM3 Hemoglobin 14.3 GM/DL 13.2 GM/DL Hematocrit 42.8 % 39.9 % Mean Corpuscular Volume 81.7 FL 83.4 FL Mean Corpuscular Hemoglobin 27.3 PG 27.7 PG Mean Corpuscular Hemoglobin 33.4 % 33.2 % Concent Red Cell Distribution Width 13.0 % 13.4 % Platelet Count 267 TH/MM3 236 TH/MM3 Mean Platelet Volume 8.4 FL 8.3 FL Neutrophils (%) (Auto) % CBC Comment AUTO DIFF AUTO DIFF Differential Total Cells 100 100 Counted Neutrophils % (Manual) 55 % 70 % Band Neutrophils % 2 % Lymphocytes % 32 % 20 % Monocytes % 10 % 8 % Eosinophils % 1 % 2 % Neutrophils # (Manual) 3.2 TH/MM3 3.3 TH/MM3 Differential Comment FINAL DIFF FINAL DIFF MANUAL MANUAL Atypical Lymphocytes % Platelet Estimate NORMAL NORMAL Platelet Morphology Comment NORMAL NORMAL Red Cell Morphology Comment NORMAL NORMAL Prothrombin Time 10.8 SEC Prothromb Time International 1.0 RATIO Ratio Activated Partial 28.9 SEC Thromboplast Time Sodium Level 131 MEQ/L 137 MEQ/L Potassium Level 3.6 MEQ/L 3.2 MEQ/L Chloride Level 96 MEQ/L 102 MEQ/L Carbon Dioxide Level 24.0 MEQ/L 28.7 MEQ/L Anion Gap 11 MEQ/L 6 MEQ/L Blood Urea Nitrogen 9 MG/DL 8 MG/DL Creatinine 0.72 MG/DL 0.56 MG/DL Estimat Glomerular Filtration 87 ML/MIN 116 ML/MIN Rate Random Glucose 446 MG/DL 221 MG/DL Calcium Level 9.0 MG/DL 8.3 MG/DL Total Bilirubin 12.3 MG/DL 11.9 MG/DL Direct Bilirubin 10.2 MG/DL Indirect Bilirubin 2.1 MG/DL Aspartate Amino Transf 999 U/L 1283 U/L (AST/SGOT) Alanine Aminotransferase 924 U/L 893 U/L (ALT/SGPT) Alkaline Phosphatase 720 U/L 591 U/L Total Protein 6.4 GM/DL 5.6 GM/DL Albumin 3.0 GM/DL 2.5 GM/DL Lipase 145 U/L Urine Color YELLOW Urine Turbidity CLEAR Urine pH 6.0 Urine Specific [place] GREATER THAN 1.035 Urine Protein NEG mg/dL Urine Glucose (UA) 1000 OR GREATER mg/dL Urine Ketones NEG mg/dL Urine Occult Blood TRACE Urine Nitrite NEG Urine Bilirubin MOD Urine Leukocyte Esterase NEG Urine RBC 0-3 /hpf Urine WBC 3-5 /hpf Urine Squamous Epithelial 6-8 /hpf Cells Microscopic Urinalysis Comment CULT NOT INDICATED Hemoglobin A1c 11.6 % Triglycerides Level 596 MG/DL Cholesterol Level 275 MG/DL LDL Cholesterol MG/DL HDL Cholesterol 10.5 MG/DL Cholesterol/HDL Ratio 26.19 RATIO Test 06/12/17 04:40 White Blood Count 4.4 TH/MM3 Red Blood Count 4.63 MIL/MM3 Hemoglobin 12.8 GM/DL Hematocrit 38.2 % Mean Corpuscular Volume 82.6 FL Mean Corpuscular Hemoglobin 27.6 PG Mean Corpuscular Hemoglobin 33.5 % Concent Red Cell Distribution Width 13.1 % Platelet Count 206 TH/MM3 Mean Platelet Volume 8.9 FL Neutrophils (%) (Auto) % CBC Comment AUTO DIFF Differential Total Cells 100 Counted Neutrophils % (Manual) 64 % Band Neutrophils % 2 % Lymphocytes % 23 % Monocytes % 9 % Eosinophils % 1 % Basophils % 1 % Neutrophils # (Manual) 2.9 TH/MM3 Differential Comment FINAL DIFF MANUAL Platelet Estimate NORMAL Platelet Morphology Comment NORMAL Red Cell Morphology Comment NORMAL Sodium Level 137 MEQ/L Potassium Level 3.3 MEQ/L Chloride Level 101 MEQ/L Carbon Dioxide Level 27.3 MEQ/L Anion Gap 9 MEQ/L Blood Urea Nitrogen 6 MG/DL Creatinine 0.54 MG/DL Estimat Glomerular Filtration 121 ML/MIN Rate Random Glucose 221 MG/DL Calcium Level 7.7 MG/DL Magnesium Level 1.7 MG/DL Total Bilirubin 11.3 MG/DL Aspartate Amino Transf 1051 U/L (AST/SGOT) Alanine Aminotransferase 818 U/L (ALT/SGPT) Alkaline Phosphatase 508 U/L Total Protein 5.2 GM/DL Albumin 2.3 GM/DL Allergies Coded Allergies Type Severity Reaction Last Updated Verified Cipro Allergy Intermediate Hives 06/10/17 Yes Tramadol/Acetaminophen Allergy Intermediate Hives 06/10/17 Yes Active Scripts Medications Dose Route/Sig Days Date Category Dose Instructions Ibuprofen 600 Mg Tab 600 Mg PO TID 03/07/17 Rx Robaxin (Methocarbamol) 500 Mg Tab 500 Mg PO TID 3/14/17 Rx Naproxen 500 Mg Tab 500 Mg PO BID 14 01/22/17 Rx Levemir Inj (Insulin Detemir) 1,000 unit/ 10 ML Vial 25 Units SQ HS 11/13/16 Rx Do not mix with any other Insulin. Metoprolol Tartrate 25 Mg Tab 25 Mg PO HS 11/13/16 Rx Gabapentin 300 Mg Cap 300 Mg PO BID 11/13/16 Reported Fenofibrate Unknown Strength Tab Unknown Dose PO HS 11/13/16 Reported ASSESSMENT/PLAN: seen and examined, still with R UQ pain. MRCP noted. Needs cholecystectomy timing to be determined by surgery. LFTs markedly elevated ? acute hepatitis. Serologies ordered, check JASPREET. Discussed with pt. It was a pleasure seeing Humaira Louise. Thank you for this consult. Entered by: Sommer Brian MD Jun 12, 2017 16:14
--- NOTE | 2017-06-12 17:12 | HHI.PR ---
Subjective Subjective Notes Resting in bed No issues overnight Objective Vitals/I&O Vital Signs Date Time Temp Pulse Resp B/P Pulse Ox O2 Delivery O2 Flow Rate FiO2 06/12/17 16:00 99.0 87 20 117/79 96 06/11/17 00:34 Room Air Labs Laboratory Tests Test 06/12/17 04:40 White Blood Count 4.4 Red Blood Count 4.63 Hemoglobin 12.8 Hematocrit 38.2 Mean Corpuscular Volume 82.6 Mean Corpuscular Hemoglobin 27.6 Mean Corpuscular Hemoglobin 33.5 Concent Red Cell Distribution Width 13.1 Platelet Count 206 Mean Platelet Volume 8.9 Neutrophils (%) (Auto) CBC Comment AUTO DIFF Differential Total Cells 100 Counted Neutrophils % (Manual) 64 Band Neutrophils % 2 Lymphocytes % 23 Monocytes % 9 Eosinophils % 1 Basophils % 1 Neutrophils # (Manual) 2.9 Differential Comment FINAL DIFF MANUAL Platelet Estimate NORMAL Platelet Morphology Comment NORMAL Red Cell Morphology Comment NORMAL Sodium Level 137 Potassium Level 3.3 Chloride Level 101 Carbon Dioxide Level 27.3 Anion Gap 9 Blood Urea Nitrogen 6 Creatinine 0.54 Estimat Glomerular Filtration 121 Rate Random Glucose 221 Calcium Level 7.7 Magnesium Level 1.7 Total Bilirubin 11.3 Aspartate Amino Transf 1051 (AST/SGOT) Alanine Aminotransferase 818 (ALT/SGPT) Alkaline Phosphatase 508 Total Protein 5.2 Albumin 2.3 Radiology Last 48 hours Impressions Abdomen/Pelvis CT 06/10/17 2100 Signed Impressions: Service Date/Time: Saturday, June 10, 2017 23:49 - CONCLUSION: 1. Abnormal gallbladder with apparent wall thickening. High-density material is present in the apparent lumen more centrally with no definite calcified gallstones. This may represent sludge. These findings could indicate acute or chronic cholecystitis. 2. No evidence of biliary obstruction. Syed Chong MD Gall Bladder Ultrasound 06/10/17 0000 Signed Impressions: Service Date/Time: Saturday, June 10, 2017 21:51 - CONCLUSION: 1. Nondiagnostic exam of the gallbladder given the lack of distention. Gallbladder pathology can neither be included or excluded. May consider hepatobiliary tract scan if cholecystitis is suspected clinically. 2. Hepatomegaly without focal lesion. Raul Ferrara MD Cardiovascular: Regular Lungs: Clear Abdomen: Other (non distended; RUQ tenderness ) Extremities: No edema A/P Assessment and Plan 47 year old female with liver dysfunction (unknown etiology); cholecystitis -Continue IVF -Continue clear liquids -Liver enzymes remain elevated -Check hepatitis panel -MRCP shows no CBD stone or obstruction -No plans at this time for laparoscopic cholecystectomy until liver enzymes improve Attending Statement patient seen at bedside still with very high lfts, likely intrinsic liver dysfxn, await hepatic pannel non op until etiology of jaundice identified Attestation The exam, history, and the medical decision-making described in the above note were completed with the assistance of the mid-level provider. I reviewed and agree with the findings presented. I attest that I had a [id number] encounter with the patient on the same day, and personally performed and documented my assessment and findings in the medical record. Rebecca Ayala Jun 12, 2017 17:11 Bear Proctor MD Jun 17, 2017 21:39
[2017-06-12] MEDS: SODIUM CHLORIDE 0.9% FLUSH 10 ML FLUSH IV FLUSH PRN (17:32)
[2017-06-12] MEDS: MORPHINE SULFATE 4 MG/ML INJ IV PUSH PRN ×2 (17:32→22:07)
[2017-06-12 20:00] VITALS: BP 111/80; PULSE 86; RESP 20; TEMP 98.7; O2SAT 95
[2017-06-12] MEDS ORDERED: INSULIN DETEMIR 100 UNITS/ML VIAL SQ SCH (21:00)
[2017-06-13] VITALS: BP 102/69; PULSE 86; RESP 20; TEMP 99.3; O2SAT 96
[2017-06-13] MEDS: PIPERACIL-TAZO 4.5 GM PREMIX 100 ML IV SCH ×4 (02:24→20:49)
[2017-06-13] MEDS: MORPHINE SULFATE 4 MG/ML INJ IV PUSH PRN ×4 (04:02→20:51)
[2017-06-13 05:40] LABS: CHLORIDE 101 MEQ/L (98-107); POTASSIUM 3.3 MEQ/L (3.5-5.1); SODIUM (NA) 139 MEQ/L (136-145)
[2017-06-13 05:47] LABS: ANION GAP 8 MEQ/L (5-15); BICARBONATE 29.7 MEQ/L (21.0-32.0); BLOOD UREA NITROGEN 5 MG/DL (7-18)
[2017-06-13 05:49] LABS: ALT (GPT) 806 U/L (10-53); GLOMERULAR FILTRATION RATE 129 ML/MIN (>89)
[2017-06-13 05:51] LABS: TOTAL BILIRUBIN ADULT 12.4 MG/DL (0.2-1.0)
[2017-06-13 05:52] LABS: ALKALINE PHOSPHATASE 508 U/L (45-117)
[2017-06-13 05:57] LABS: AST (GOT) 1031 U/L (15-37)
[2017-06-13 08:00] VITALS: BP 112/73; PULSE 83; RESP 18; TEMP 97.1; O2SAT 93
[2017-06-13] MEDS: POTASSIUM CHLORIDE 20 MEQ PWD PACKET PO SCH ×2 (08:21→20:41)
[2017-06-13] MEDS: SODIUM CHLORIDE 0.9% FLUSH 10 ML FLUSH IV FLUSH SCH ×2 (08:22→20:48)
[2017-06-13] MEDS: PANTOPRAZOLE SOD 40 MG DELAYED RELEASE TAB PO SCH (08:22)
[2017-06-13] MEDS: INSULIN ASPART SUPPLEMENTAL SCALE SQ SCH ×4 (08:34→21:52)
[2017-06-13 12:00] VITALS: BP 121/90; PULSE 79; RESP 18; TEMP 97.8; O2SAT 92
--- NOTE | 2017-06-13 12:18 | HHI.PR ---
Subjective Remarks Written by Castro Genao, acting as scribe for Dr. Snyder on 06/13/17 at 12: 06. Patient states that she is doing better. Pain is improved. Liver enzymes remained stable. Patient is inquiring about when she is going to have her surgery. Objective Vitals Vital Signs Date Time Temp Pulse Resp B/P Pulse Ox O2 Delivery O2 Flow Rate FiO2 06/13/17 08:20 18 06/13/17 08:00 97.1 83 18 112/73 93 06/13/17 00:00 99.3 86 20 102/69 96 06/12/17 20:00 98.7 86 20 111/80 95 06/12/17 16:00 99.0 87 20 117/79 96 I/O 06/12/17 06/12/17 06/12/17 06/13/17 06/13/17 06/13/17 07:00 15:00 23:00 07:00 15:00 23:00 Intake Total 1045 ml 1020 ml 1574 ml 265 ml Output Total 0 ml Balance 1045 ml 1020 ml 1574 ml 265 ml Intake Oral 360 ml 1020 ml 480 ml 150 ml IV Total 685 ml 1094 ml 115 ml Output Urine Total 0 ml # Voids 3 3 6 0 # Bowel Movements 0 0 0 Result Diagram: 06/12/17 0440 06/13/17 0435 Imaging Last Impressions Cholangiopancreatography MRI 06/11/17 0000 Signed Impressions: Service Date/Time: Sunday, June 11, 2017 12:17 - CONCLUSION: 1. The intrahepatic and extrahepatic bile ducts are not well evaluated due to patient motion. However, the common bile duct is normal in size. There are no findings to indicate a common duct stone. 2. Diffuse gallbladder wall edema with nonspecific edema and fluid along the hepatoduodenal ligament and mild central periportal edema. 3. Mild splenomegaly. Eugene Erwin MD Abdomen/Pelvis CT 06/10/17 2100 Signed Impressions: Service Date/Time: Saturday, June 10, 2017 23:49 - CONCLUSION: 1. Abnormal gallbladder with apparent wall thickening. High-density material is present in the apparent lumen more centrally with no definite calcified gallstones. This may represent sludge. These findings could indicate acute or chronic cholecystitis. 2. No evidence of biliary obstruction. Syed Chong MD Gall Bladder Ultrasound 06/10/17 0000 Signed Impressions: Service Date/Time: Saturday, June 10, 2017 21:51 - CONCLUSION: 1. Nondiagnostic exam of the gallbladder given the lack of distention. Gallbladder pathology can neither be included or excluded. May consider hepatobiliary tract scan if cholecystitis is suspected clinically. 2. Hepatomegaly without focal lesion. Raul Ferrara MD Objective Remarks GENERAL: Well-developed, well-nourished. alert and orientated. Ambulating in room HEENT: Head is normocephalic without any lesions or masses noted. Facial features are symmetric. Eyes: Extraocular muscles are intact. Conjunctivae were clear. NECK: Trachea midline no deviation. CARDIAC: Regular rhythm, regular rate. No murmurs gallops or rubs. LUNGS: Clear to auscultation bilaterally. No wheeze. No use of accessory muscles on inspiration or expiration. ABDOMEN: Soft, nontender. Nondistended. Bowel sounds heard in all 4 quadrants. Negative rebound, negative guarding EXTREMITIES: No edema, ambulating w no difficulty NEUROLOGY: Mood and affect appear appropriate. Cranial nerves II through XII grossly intact. Moving all extremities, speech is clear Urinary Catheter: No Vascular Central Line Catheter: No A/P Assessment and Plan Elevated liver enzymes, Liver enzymes have plateaued at this time. Continue monitor liver enzymes Hepatitis panel was performed which shows hepatitis C Epidemiologist is following the patient Discussed with the patient her hepatitis results. Counseled to her extensively on possible ways of transmission and further workup needed Cholecystitis Gen. surgery following MRCP was performed which did not indicate any obstructive process and, mild Surgery is pending depending on liver enzyme improvement Continue pain control Continue Zosyn Hepatitis C Patient counseled on hepatitis C, possible transmission from needlestick, sexual activity, body fluids, tattoo Obtain genotype and viral load Gastrologist following the patient Diabetes Accu-Cheks with sliding scale insulin. on levemir 5 units qhs. increase to 5 units BID. continue to adjust Hemoglobin A1c 11.6 Diabetic education --Low dose lisinopril started (2.5 mg daily) for kidney protection. Hypokalemia Continue to monitor replete as needed Anxiety Xanax as needed Hypertension Blood pressure stable this time start blood pressure medication if needed DVT prevention sequential compression devices, avoid chemical prophylaxis secondary to impending surgery This note was transcribed by diane Genao. I, Dr. Jessica Snyder personally performed the history, physical exam, and medical decision making; and confirmed the accuracy of the information in the transcribed note. Authenticated by Dr. Jessica Snyder on 06/13/17 at 12:06. Discharge Planning awaiting final recs from and Castro Gilbert Jun 13, 2017 12:18 Jessica Snyder MD Jun 13, 2017 21:25
[2017-06-13 16:00] VITALS: BP 112/79; PULSE 75; RESP 18; TEMP 98.4; O2SAT 94
--- NOTE | 2017-06-13 16:24 | HHI.PR ---
Subjective Subjective Notes Resting in bed Hungry Objective Vitals/I&O Vital Signs Date Time Temp Pulse Resp B/P Pulse Ox O2 Delivery O2 Flow Rate FiO2 06/13/17 16:00 98.4 75 18 112/79 94 06/11/17 00:34 Room Air Labs Laboratory Tests Test 06/13/17 04:35 Sodium Level 139 Potassium Level 3.3 Chloride Level 101 Carbon Dioxide Level 29.7 Anion Gap 8 Blood Urea Nitrogen 5 Creatinine 0.51 Estimat Glomerular Filtration 129 Rate Random Glucose 159 Calcium Level 8.2 Total Bilirubin 12.4 Aspartate Amino Transf 1031 (AST/SGOT) Alanine Aminotransferase 806 (ALT/SGPT) Alkaline Phosphatase 508 Total Protein 5.2 Albumin 2.3 Radiology Last 48 hours Impressions Abdomen/Pelvis CT 06/10/17 2100 Signed Impressions: Service Date/Time: Saturday, June 10, 2017 23:49 - CONCLUSION: 1. Abnormal gallbladder with apparent wall thickening. High-density material is present in the apparent lumen more centrally with no definite calcified gallstones. This may represent sludge. These findings could indicate acute or chronic cholecystitis. 2. No evidence of biliary obstruction. Syed Chong MD Gall Bladder Ultrasound 06/10/17 0000 Signed Impressions: Service Date/Time: Saturday, June 10, 2017 21:51 - CONCLUSION: 1. Nondiagnostic exam of the gallbladder given the lack of distention. Gallbladder pathology can neither be included or excluded. May consider hepatobiliary tract scan if cholecystitis is suspected clinically. 2. Hepatomegaly without focal lesion. Raul Ferrara MD Cardiovascular: Regular Lungs: Clear Abdomen: Non-distended, Non-tender Extremities: No edema A/P Assessment and Plan 47 year old female with liver dysfunction (unknown etiology); cholecystitis -Continue IVF -Advance to heart healthy diet -Liver enzymes remain elevated although trending down -Hep C positive -MRCP shows no CBD stone or obstruction -No plans at this time for laparoscopic cholecystectomy until liver enzymes improve Attending Statement patient seen at bedside no cbd obstruction on mrcp await hep pannel non operative at this time Attestation The exam, history, and the medical decision-making described in the above note were completed with the assistance of the mid-level provider. I reviewed and agree with the findings presented. I attest that I had a [id number] encounter with the patient on the same day, and personally performed and documented my assessment and findings in the medical record. Rebecca Ayala Jun 13, 2017 16:24 Bear Proctor MD Jun 17, 2017 21:47
[2017-06-13 20:32] VITALS: BP 118/75; PULSE 81; RESP 16; TEMP 98.1; O2SAT 94
[2017-06-13] MEDS: ALPRAZolam 0.5 MG TAB PO PRN (20:49)
[2017-06-14 00:02] VITALS: BP 102/67; PULSE 81; RESP 16; TEMP 99.1; O2SAT 94
[2017-06-14] MEDS: PIPERACIL-TAZO 4.5 GM PREMIX 100 ML IV SCH ×5 (02:12→21:26)
[2017-06-14 04:03] VITALS: BP 103/66; PULSE 84; RESP 16; TEMP 99.2; O2SAT 93
[2017-06-14 06:58] LABS: HEMATOCRIT 39.5 % (35.0-46.0); MEAN CELL VOLUME 84.3 FL (80.0-100.0); MEAN CORPUSCULAR HGB CONC 33.2 % (32.0-36.0); PLATELET COUNT 242 TH/MM3 (150-450); RED BLOOD COUNT 4.69 MIL/MM3 (4.00-5.30); RED CELL DISTRIBUTION WIDTH 13.8 % (11.6-17.2); WHITE BLOOD COUNT 4.7 TH/MM3 (4.0-11.0)
[2017-06-14 07:02] LABS: CHLORIDE 97 MEQ/L (98-107); POTASSIUM 3.4 MEQ/L (3.5-5.1); SODIUM (NA) 135 MEQ/L (136-145)
[2017-06-14 07:08] LABS: HEMO FLAGS AUTO DIFF
[2017-06-14 07:13] LABS: ANION GAP 8 MEQ/L (5-15); BICARBONATE 30.2 MEQ/L (21.0-32.0); BLOOD UREA NITROGEN 6 MG/DL (7-18)
[2017-06-14 07:16] LABS: AST (GOT) 996 U/L (15-37)
[2017-06-14 07:17] LABS: GLOMERULAR FILTRATION RATE 121 ML/MIN (>89)
[2017-06-14 07:18] LABS: ALT (GPT) 793 U/L (10-53); TOTAL BILIRUBIN ADULT 13.7 MG/DL (0.2-1.0)
[2017-06-14 07:19] LABS: ALKALINE PHOSPHATASE 523 U/L (45-117)
[2017-06-14 07:57] LABS: BANDS 4 % (0-6); BASOPHILS 2 % (0-2); NEUTROPHIL # MANUAL DIFF 3.1 TH/MM3 (1.8-7.7); POLYS (SEG NEUTROPHILS) 63 % (16-70); WBC DIFF SAMPLE 100
[2017-06-14 07:59] LABS: PLATELET ESTIMATE SMEAR NORMAL (NORMAL); PLATELET MORPHOLOGY NORMAL (NORMAL); SCAN/DIFF FINAL DIFF MANUAL
[2017-06-14 08:00] VITALS: BP 97/67; PULSE 87; RESP 17; TEMP 95.5; O2SAT 97
[2017-06-14] MEDS: PANTOPRAZOLE SOD 40 MG DELAYED RELEASE TAB PO SCH (08:44)
[2017-06-14] MEDS: LISINOPRIL 5 MG TAB PO SCH (08:45)
[2017-06-14] MEDS: POTASSIUM CHLORIDE 20 MEQ PWD PACKET PO SCH ×2 (08:45→21:00)
[2017-06-14] MEDS: SODIUM CHLORIDE 0.9% FLUSH 10 ML FLUSH IV FLUSH SCH ×2 (08:46→21:26)
[2017-06-14] MEDS: MORPHINE SULFATE 4 MG/ML INJ IV PUSH PRN ×3 (08:52→23:19)
[2017-06-14] MEDS: INSULIN ASPART SUPPLEMENTAL SCALE SQ SCH ×4 (09:06→21:31)
[2017-06-14] MEDS: INSULIN DETEMIR 100 UNITS/ML VIAL SQ SCH ×2 (09:07→21:30)
[2017-06-14] MEDS ORDERED: POTASSIUM CHLORIDE 20 MEQ CONTROLLED RELEASE TAB PO ONE (09:45)
--- NOTE | 2017-06-14 09:49 | HHI.GIFU ---
Subjective Remarks feels better, she is upset that she may have hep , still jaundice Objective Vitals I&O Vital Signs Date Time Temp Pulse Resp B/P Pulse Ox O2 Delivery O2 Flow Rate FiO2 06/14/17 08:00 95.5 87 17 97/67 97 06/14/17 04:03 99.2 84 16 103/66 93 06/14/17 00:02 99.1 81 16 102/67 94 06/13/17 20:56 18 06/13/17 20:32 98.1 81 16 118/75 94 06/13/17 16:00 98.4 75 18 112/79 94 06/13/17 12:00 97.8 79 18 121/90 92 I/O 06/13/17 06/13/17 06/13/17 06/14/17 06/14/17 06/14/17 07:00 15:00 23:00 07:00 15:00 23:00 Intake Total 265 ml 840 ml 520 ml Output Total 0 ml Balance 265 ml 840 ml 520 ml Intake Oral 150 ml 840 ml 520 ml IV Total 115 ml Output Urine Total 0 ml # Voids 0 3 5 # Bowel Movements 0 Laboratory Laboratory Tests Test 06/14/17 05:40 White Blood Count 4.7 Red Blood Count 4.69 Hemoglobin 13.1 Hematocrit 39.5 Mean Corpuscular Volume 84.3 Mean Corpuscular Hemoglobin 28.0 Mean Corpuscular Hemoglobin 33.2 Concent Red Cell Distribution Width 13.8 Platelet Count 242 Mean Platelet Volume 8.8 Neutrophils (%) (Auto) CBC Comment AUTO DIFF Differential Total Cells 100 Counted Neutrophils % (Manual) 63 Band Neutrophils % 4 Lymphocytes % 29 Monocytes % 2 Basophils % 2 Neutrophils # (Manual) 3.1 Differential Comment FINAL DIFF MANUAL Platelet Estimate NORMAL Platelet Morphology Comment NORMAL Sodium Level 135 Potassium Level 3.4 Chloride Level 97 Carbon Dioxide Level 30.2 Anion Gap 8 Blood Urea Nitrogen 6 Creatinine 0.54 Estimat Glomerular Filtration 121 Rate Random Glucose 248 Calcium Level 8.3 Total Bilirubin 13.7 Aspartate Amino Transf 996 (AST/SGOT) Alanine Aminotransferase 793 (ALT/SGPT) Alkaline Phosphatase 523 Total Protein 5.3 Albumin 2.2 Physical Exam HEENT: Pupils round and reactive to light; normocephalic; atraumatic; + jaundice. Throat is clear. NECK: Neck is supple, no JVD, no lymphadenopathy. CHEST: Chest is clear to auscultation and percussion. CARDIAC: Regular rate and rhythm with no murmur gallop or rubs. ABDOMEN: Soft, nondistended, nontender; no hepatosplenomegaly; bowel sounds are present in all four quadrants. EXTREMITIES: No clubbing, cyanosis, or edema. SKIN: Normal; no rash; + jaundice. POULTRY OFFAL WORKER: No focal deficits; alert and oriented times three. Assessment and Plan Plan elevated LFTs, possible acute hepatitis C labs pending ordered liver W/U may need lap ramiro. Estee Bates MD Jun 14, 2017 09:49
--- NOTE | 2017-06-14 11:05 | HHI.PR ---
Subjective Remarks Written by Marlen Farmer, acting as scribe for Dr. Snyder on 06/14/17 at 10:50. Follow-up visit hep C, transaminitis, cholecystitis, DM 2. Patient seen and examined today. Discussed with patient recent lab results including liver enzymes. Patient is concerned about hepatitis C on how she acquired it. Concerned if is doing something behind her back since she was told that it can also be transmitted from sexual intercourse. She also worries about her that he needs to be tested. Discuss with patient that needs to coordinate with PCP for testing. Patient is also worried about how her life will to be affected with hepatitis C. Reassurance provided. Continues to complain of right upper quadrant pain, associated with intermittent nausea. Also reports vomited this morning after eating and taking her medications. Denies SOB/ dyspnea. Denies chest pain, palpitations, headaches, dizziness. Denies fevers, chills, diarrhea. Denies dysuria. Objective Vitals Vital Signs Date Time Temp Pulse Resp B/P Pulse Ox O2 Delivery O2 Flow Rate FiO2 06/14/17 08:00 95.5 87 17 97/67 97 06/14/17 04:03 99.2 84 16 103/66 93 06/14/17 00:02 99.1 81 16 102/67 94 06/13/17 20:56 18 06/13/17 20:32 98.1 81 16 118/75 94 06/13/17 16:00 98.4 75 18 112/79 94 06/13/17 12:00 97.8 79 18 121/90 92 I/O 06/13/17 06/13/17 06/13/17 06/14/17 06/14/17 06/14/17 07:00 15:00 23:00 07:00 15:00 23:00 Intake Total 265 ml 840 ml 520 ml Output Total 0 ml Balance 265 ml 840 ml 520 ml Intake Oral 150 ml 840 ml 520 ml IV Total 115 ml Output Urine Total 0 ml # Voids 0 3 5 # Bowel Movements 0 Result Diagram: 06/14/17 0540 06/14/17 0540 Imaging Last Impressions Cholangiopancreatography MRI 06/11/17 0000 Signed Impressions: Service Date/Time: Sunday, June 11, 2017 12:17 - CONCLUSION: 1. The intrahepatic and extrahepatic bile ducts are not well evaluated due to patient motion. However, the common bile duct is normal in size. There are no findings to indicate a common duct stone. 2. Diffuse gallbladder wall edema with nonspecific edema and fluid along the hepatoduodenal ligament and mild central periportal edema. 3. Mild splenomegaly. Eugene Erwin MD Abdomen/Pelvis CT 06/10/17 2100 Signed Impressions: Service Date/Time: Saturday, June 10, 2017 23:49 - CONCLUSION: 1. Abnormal gallbladder with apparent wall thickening. High-density material is present in the apparent lumen more centrally with no definite calcified gallstones. This may represent sludge. These findings could indicate acute or chronic cholecystitis. 2. No evidence of biliary obstruction. Syed Chong MD Gall Bladder Ultrasound 06/10/17 0000 Signed Impressions: Service Date/Time: Saturday, June 10, 2017 21:51 - CONCLUSION: 1. Nondiagnostic exam of the gallbladder given the lack of distention. Gallbladder pathology can neither be included or excluded. May consider hepatobiliary tract scan if cholecystitis is suspected clinically. 2. Hepatomegaly without focal lesion. Raul Ferrara MD Objective Remarks GENERAL: This is a well-nourished, well-developed patient, in no apparent distress. SKIN: Warm and dry. Jaundice. HEENT: Normocephalic. Pupils equal round and reactive. NECK: Trachea midline. CARDIOVASCULAR: Regular rate and rhythm without murmurs RESPIRATORY: Clear to auscultation. Breath sounds equal bilaterally. No wheezes GASTROINTESTINAL: Abdomen soft, nondistended. Bowel Sounds normoactive x4. Tenderness to palpation right upper quadrant. MUSCULOSKELETAL: Extremities without edema. NEUROLOGICAL: Awake and alert. Oriented to time, place, person. No focal neuro deficit. Moves all extremities. Normal speech. A/P Problem List: (1) Abnormal liver function tests ICD Code: R79.89 Status: Acute (2) Cholecystitis ICD Code: K81.9 Status: Acute (3) DM2 (diabetes mellitus, type 2) ICD Code: E11.9 Status: Acute (4) Anxiety ICD Code: F41.9 Status: Acute (5) Hypokalemia ICD Code: E87.6 Status: Acute Assessment and Plan Patient is a 47-year-old female with a history of diabetes who comes in with at least a week of worsening abdominal pain. Infectious had intermittent abdominal discomfort with eating for the last year. Acute Liver Failure Elevated liver enzymes -Liver enzymes Improving. - Continue monitor liver enzymes - Hepatitis panel was performed which shows hepatitis C. Pending Serology/ antigen. - Tie Layer is following the patient. - Discussed with the patient her hepatitis results. Counseled to her extensively on possible ways of transmission and further workup needed. - Reassurance provided. needs to be tested through PCP. Discuss that serology would be needed for treatment options and treatment is done outpatient. Cholecystitis - Gen. surgery following - MRCP was performed which did not indicate any obstructive process and, mild - Surgery is pending depending on liver enzyme improvement. Will not have surgical procedures with elevated enzymes. - Continue pain control - Continue Zosyn Hepatitis C - Patient counseled on hepatitis C, possible transmission from needlestick, sexual activity, body fluids, tattoo - Obtain genotype and viral load - Gastrologist following the patient Diabetes - Accu-Cheks with sliding scale insulin. on levemir 5 units qhs. increase to 5 units BID. continue to adjust - Hemoglobin A1c 11.6 - Diabetic education - Low dose lisinopril started (2.5 mg daily) for kidney protection. Hypokalemia - K+ 40 MEQ - Continue to monitor replete as needed Anxiety - Xanax as needed Hypertension - Blood pressure stable this time - Low-dose lisinopril for kidney protection secondary to diabetes DVT prevention - sequential compression devices, avoid chemical prophylaxis secondary to impending surgery This note was transcribed by diane Farmer. I, Dr. Jessica Snyder personally performed the history, physical exam, and medical decision making; and confirmed the accuracy of the information in the transcribed note. Authenticated by Dr. Jessica Snyder on 06/14/17 at 10:50. Discharge Planning Awaiting recommendations from GI and general surgery. Marlen Gutiérrez Jun 14, 2017 11:05 Jessica Snyder MD Jun 14, 2017 16:35
[2017-06-14 12:00] VITALS: BP 104/74; PULSE 88; RESP 18; TEMP 95.7; O2SAT 94
[2017-06-14 13:46] LABS: TRANSFERRIN IRON PROFILE 224 MG/DL (200-360)
[2017-06-14 16:00] VITALS: BP 118/76; PULSE 94; RESP 17; TEMP 95.5; O2SAT 95
[2017-06-14] MEDS: ONDANSETRON HCL 4 MG/2 ML VIAL IVP PRN ×2 (16:39→23:18)
[2017-06-14] MEDS: ALPRAZolam 0.5 MG TAB PO PRN (16:39)
--- NOTE | 2017-06-14 18:43 | HHI.PR ---
Subjective Subjective Notes Little appetite Objective Vitals/I&O Vital Signs Date Time Temp Pulse Resp B/P Pulse Ox O2 Delivery O2 Flow Rate FiO2 06/14/17 16:00 95.5 94 17 118/76 95 06/11/17 00:34 Room Air Labs Laboratory Tests Test 06/14/17 06/14/17 05:40 10:45 White Blood Count 4.7 Red Blood Count 4.69 Hemoglobin 13.1 Hematocrit 39.5 Mean Corpuscular Volume 84.3 Mean Corpuscular Hemoglobin 28.0 Mean Corpuscular Hemoglobin 33.2 Concent Red Cell Distribution Width 13.8 Platelet Count 242 Mean Platelet Volume 8.8 Neutrophils (%) (Auto) CBC Comment AUTO DIFF Differential Total Cells 100 Counted Neutrophils % (Manual) 63 Band Neutrophils % 4 Lymphocytes % 29 Monocytes % 2 Basophils % 2 Neutrophils # (Manual) 3.1 Differential Comment FINAL DIFF MANUAL Platelet Estimate NORMAL Platelet Morphology Comment NORMAL Sodium Level 135 Potassium Level 3.4 Chloride Level 97 Carbon Dioxide Level 30.2 Anion Gap 8 Blood Urea Nitrogen 6 Creatinine 0.54 Estimat Glomerular Filtration 121 Rate Random Glucose 248 Calcium Level 8.3 Total Bilirubin 13.7 Aspartate Amino Transf 996 (AST/SGOT) Alanine Aminotransferase 793 (ALT/SGPT) Alkaline Phosphatase 523 Total Protein 5.3 Albumin 2.2 Iron Level 71 Total Iron Binding Capacity 314 Percent Iron Saturation 22.6 Radiology Last 48 hours Impressions Abdomen/Pelvis CT 06/10/17 2100 Signed Impressions: Service Date/Time: Saturday, June 10, 2017 23:49 - CONCLUSION: 1. Abnormal gallbladder with apparent wall thickening. High-density material is present in the apparent lumen more centrally with no definite calcified gallstones. This may represent sludge. These findings could indicate acute or chronic cholecystitis. 2. No evidence of biliary obstruction. Syed Chong MD Gall Bladder Ultrasound 06/10/17 0000 Signed Impressions: Service Date/Time: Saturday, June 10, 2017 21:51 - CONCLUSION: 1. Nondiagnostic exam of the gallbladder given the lack of distention. Gallbladder pathology can neither be included or excluded. May consider hepatobiliary tract scan if cholecystitis is suspected clinically. 2. Hepatomegaly without focal lesion. Raul Ferrara MD Cardiovascular: Regular Lungs: Clear Abdomen: Non-distended, Non-tender Extremities: No edema Narrative Exam Jaundice A/P Assessment and Plan 47 year old female with liver dysfunction (unknown etiology); cholecystitis -Continue IVF -Encouraged small more frequent bland meals -Liver enzymes remain elevated; T-bili 13.7 -Hep C positive -MRCP shows no CBD stone or obstruction -No plans at this time for laparoscopic cholecystectomy until liver enzymes improve -GS will follow peripherally over the weekend Attending Statement patient seen and examined decreased po pt need to get liver disease tx first prior to any surgical intervention Attestation The exam, history, and the medical decision-making described in the above note were completed with the assistance of the mid-level provider. I reviewed and agree with the findings presented. I attest that I had a [id number] encounter with the patient on the same day, and personally performed and documented my assessment and findings in the medical record. Rebecca Ayala Jun 14, 2017 18:43 Bear Proctor MD Jun 19, 2017 21:35
[2017-06-14 20:00] VITALS: BP 116/73; PULSE 88; RESP 18; TEMP 98.6; O2SAT 96
[2017-06-15] VITALS: BP 106/72; PULSE 92; RESP 16; TEMP 99.3; O2SAT 97
[2017-06-15] MEDS: PIPERACIL-TAZO 4.5 GM PREMIX 100 ML IV SCH ×4 (03:01→21:17)
[2017-06-15] MEDS: ONDANSETRON HCL 4 MG/2 ML VIAL IVP PRN ×2 (06:56→16:52)
[2017-06-15] MEDS: MORPHINE SULFATE 4 MG/ML INJ IV PUSH PRN ×3 (06:56→21:29)
[2017-06-15 08:00] VITALS: BP 116/76; PULSE 83; RESP 17; TEMP 98.2; O2SAT 95
[2017-06-15] MEDS: LISINOPRIL 5 MG TAB PO SCH (08:51)
[2017-06-15] MEDS: SODIUM CHLORIDE 0.9% FLUSH 10 ML FLUSH IV FLUSH SCH ×2 (08:51→21:17)
[2017-06-15] MEDS: PANTOPRAZOLE SOD 40 MG DELAYED RELEASE TAB PO SCH (08:51)
[2017-06-15] MEDS: POTASSIUM CHLORIDE 20 MEQ PWD PACKET PO SCH ×2 (08:51→21:17)
[2017-06-15] MEDS: INSULIN DETEMIR 100 UNITS/ML VIAL SQ SCH ×2 (08:59→21:22)
[2017-06-15] MEDS: INSULIN ASPART SUPPLEMENTAL SCALE SQ SCH ×4 (09:00→21:23)
[2017-06-15 09:10] LABS: CHLORIDE 95 MEQ/L (98-107); POTASSIUM 3.6 MEQ/L (3.5-5.1); SODIUM (NA) 132 MEQ/L (136-145)
[2017-06-15 09:13] LABS: ANION GAP 7 MEQ/L (5-15); BLOOD UREA NITROGEN 6 MG/DL (7-18)
[2017-06-15 09:16] LABS: ALT (GPT) 704 U/L (10-53); AST (GOT) 849 U/L (15-37); GLOMERULAR FILTRATION RATE 124 ML/MIN (>89)
[2017-06-15 09:18] LABS: TOTAL BILIRUBIN ADULT 13.5 MG/DL (0.2-1.0)
[2017-06-15 09:19] LABS: ALKALINE PHOSPHATASE 486 U/L (45-117)
--- NOTE | 2017-06-15 10:55 | HHI.GIFU ---
GI Follow-up Note Consult Follow-up Subjective: Patient laying in bed comfortably, feeling better, upset about possibility of hepatitis c.States she had seen dr Jones in the past for enlarged liver, was told she has fatty liver .No nausea, vomiting Objective: PHYSICAL EXAMINATION: Vitals signs stable No fever HEENT: Pupils round and reactive to light; normocephalic; atraumatic; jaundice. Throat is clear. NECK: Neck is supple, no JVD, no lymphadenopathy. CHEST: Chest is clear to auscultation and percussion. CARDIAC: Regular rate and rhythm with no murmur gallop or rubs. ABDOMEN: Soft, nondistended, nontender; no hepatosplenomegaly; bowel sounds are present in all four quadrants. EXTREMITIES: No clubbing, cyanosis, or edema. SKIN: Normal; no rash; jaundice. REFRIGERATION SYSTEM INSTALLER: No focal deficits; alert and oriented times three. Available Data (labs, X- Rays, Procedues) : Laboratory Tests Test 06/14/17 06/14/17 06/15/17 05:40 10:45 08:55 White Blood Count 4.7 TH/MM3 Red Blood Count 4.69 MIL/MM3 Hemoglobin 13.1 GM/DL Hematocrit 39.5 % Mean Corpuscular Volume 84.3 FL Mean Corpuscular Hemoglobin 28.0 PG Mean Corpuscular Hemoglobin 33.2 % Concent Red Cell Distribution Width 13.8 % Platelet Count 242 TH/MM3 Mean Platelet Volume 8.8 FL Neutrophils (%) (Auto) % CBC Comment AUTO DIFF Differential Total Cells 100 Counted Neutrophils % (Manual) 63 % Band Neutrophils % 4 % Lymphocytes % 29 % Monocytes % 2 % Basophils % 2 % Neutrophils # (Manual) 3.1 TH/MM3 Differential Comment FINAL DIFF MANUAL Platelet Estimate NORMAL Platelet Morphology Comment NORMAL Sodium Level 135 MEQ/L 132 MEQ/L Potassium Level 3.4 MEQ/L 3.6 MEQ/L Chloride Level 97 MEQ/L 95 MEQ/L Carbon Dioxide Level 30.2 MEQ/L 30.0 MEQ/L Anion Gap 8 MEQ/L 7 MEQ/L Blood Urea Nitrogen 6 MG/DL 6 MG/DL Creatinine 0.54 MG/DL 0.53 MG/DL Estimat Glomerular Filtration 121 ML/MIN 124 ML/MIN Rate Random Glucose 248 MG/DL 239 MG/DL Calcium Level 8.3 MG/DL 8.0 MG/DL Total Bilirubin 13.7 MG/DL 13.5 MG/DL Aspartate Amino Transf 996 U/L 849 U/L (AST/SGOT) Alanine Aminotransferase 793 U/L 704 U/L (ALT/SGPT) Alkaline Phosphatase 523 U/L 486 U/L Total Protein 5.3 GM/DL 5.2 GM/DL Albumin 2.2 GM/DL 2.2 GM/DL Iron Level 71 MCG/DL Total Iron Binding Capacity 314 MCG/DL Percent Iron Saturation 22.6 % ASSESSMENT/PLAN: acute hepatitis suspect hepatitis c -viral load pending history of steatosis -as per her hepatitis profile negative in the past abnormal gb-general surgery eval Recommendations fu serology fu viral load if hep c viral laod negative will need liver biopsy also send cmv, herpes , celiac panel , ebv , hep e serology It was a pleasure seeing Humaira Louise. Thank you for this consult. Entered by: Estela Chu MD Jun 15, 2017 10:55
--- NOTE | 2017-06-15 11:10 | HHI.PR ---
Subjective Remarks Patient states she is trying to sleep. Currently she is not having any pain. No nausea or vomiting at this time. She is hopeful to get the hepatitis results noted. Objective Vitals Vital Signs Date Time Temp Pulse Resp B/P Pulse Ox O2 Delivery O2 Flow Rate FiO2 06/15/17 08:00 98.2 83 17 116/76 95 06/15/17 00:00 99.3 92 16 106/72 97 06/14/17 23:24 18 06/14/17 20:00 98.6 88 18 116/73 96 06/14/17 16:00 95.5 94 17 118/76 95 06/14/17 12:00 95.7 88 18 104/74 94 I/O 06/14/17 06/14/17 06/14/17 06/15/17 06/15/17 06/15/17 06:59 14:59 22:59 06:59 14:59 22:59 Intake Total 520 ml 750 ml 480 ml 240 ml Balance 520 ml 750 ml 480 ml 240 ml Intake Oral 520 ml 750 ml 480 ml 240 ml # Voids 5 2 6 5 # Bowel Movements 6 5 Result Diagram: 06/14/17 0540 06/15/17 0855 Imaging Last Impressions Cholangiopancreatography MRI 06/11/17 0000 Signed Impressions: Service Date/Time: Sunday, June 11, 2017 12:17 - CONCLUSION: 1. The intrahepatic and extrahepatic bile ducts are not well evaluated due to patient motion. However, the common bile duct is normal in size. There are no findings to indicate a common duct stone. 2. Diffuse gallbladder wall edema with nonspecific edema and fluid along the hepatoduodenal ligament and mild central periportal edema. 3. Mild splenomegaly. Eugene Erwin MD Abdomen/Pelvis CT 06/10/17 2100 Signed Impressions: Service Date/Time: Saturday, June 10, 2017 23:49 - CONCLUSION: 1. Abnormal gallbladder with apparent wall thickening. High-density material is present in the apparent lumen more centrally with no definite calcified gallstones. This may represent sludge. These findings could indicate acute or chronic cholecystitis. 2. No evidence of biliary obstruction. Syed Chong MD Gall Bladder Ultrasound 06/10/17 0000 Signed Impressions: Service Date/Time: Saturday, June 10, 2017 21:51 - CONCLUSION: 1. Nondiagnostic exam of the gallbladder given the lack of distention. Gallbladder pathology can neither be included or excluded. May consider hepatobiliary tract scan if cholecystitis is suspected clinically. 2. Hepatomegaly without focal lesion. Raul Ferrara MD Objective Remarks GENERAL: This is a well-nourished, well-developed patient, in no apparent distress. SKIN: Warm and dry. Jaundice. HEENT: Normocephalic. Pupils equal round and reactive. NECK: Trachea midline. CARDIOVASCULAR: Regular rate and rhythm without murmurs RESPIRATORY: Clear to auscultation. Breath sounds equal bilaterally. No wheezes GASTROINTESTINAL: Abdomen soft, nondistended. Bowel Sounds normoactive x4. Some Tenderness to palpation in the right upper quadrant. MUSCULOSKELETAL: Extremities without edema. NEUROLOGICAL: Awake and alert. Oriented to time, place, person. No focal neuro deficit. Moves all extremities. Normal speech. A/P Problem List: (1) Abnormal liver function tests ICD Code: R79.89 Status: Acute (2) Cholecystitis ICD Code: K81.9 Status: Acute (3) DM2 (diabetes mellitus, type 2) ICD Code: E11.9 Status: Acute (4) Anxiety ICD Code: F41.9 Status: Acute (5) Hypokalemia ICD Code: E87.6 Status: Acute Assessment and Plan Patient is a 47-year-old female with a history of diabetes who comes in with at least a week of worsening abdominal pain. Infectious had intermittent abdominal discomfort with eating for the last year. Acute Liver Failure Elevated liver enzymes Hepatitis C -Liver enzymes Improving. - Continue monitor liver enzymes - Hepatitis panel was performed which shows hepatitis C. Pending Serology/ antigen. - Car Storer is following the patient. - Discussed with the patient her hepatitis results. Counseled to her extensively on possible ways of transmission and further workup needed. - Reassurance provided. needs to be tested through PCP. Discuss that serology would be needed for treatment options and treatment is done outpatient. Cholecystitis - Gen. surgery following - MRCP was performed which did not indicate any obstructive process and, mild - Surgery is pending depending on liver enzyme improvement. Will not have surgical procedures with elevated enzymes. - Continue pain control - Continue Zosyn Diabetes - Accu-Cheks with sliding scale insulin. Increase levemir 8 units BID. continue to adjust - Hemoglobin A1c 11.6 - Diabetic education - Low dose lisinopril started (2.5 mg daily) for kidney protection. Hypokalemia - K+ 40 MEQ - Continue to monitor replete as needed Anxiety - Xanax as needed Hypertension - Blood pressure stable this time - Low-dose lisinopril for kidney protection secondary to diabetes DVT prevention - sequential compression devices, avoid chemical prophylaxis secondary to impending surgery Discharge Planning Awaiting better improvement in patient's LFTs for surgical intervention. LFTs are trending down Jessica Snyder MD Jun 15, 2017 11:10
[2017-06-15 12:00] VITALS: BP 97/71; PULSE 85; RESP 19; TEMP 97.3; O2SAT 94
[2017-06-15 16:00] VITALS: BP 112/75; PULSE 80; RESP 18; TEMP 97.7; O2SAT 93
[2017-06-15 20:00] VITALS: BP 114/74; PULSE 88; RESP 20; TEMP 98.7; O2SAT 96
[2017-06-16] VITALS: BP 106/69; PULSE 84; RESP 20; TEMP 96; O2SAT 97
[2017-06-16] MEDS: ALPRAZolam 0.5 MG TAB PO PRN ×2 (00:34→08:40)
[2017-06-16] MEDS: SODIUM CHLORIDE 0.9% FLUSH 10 ML FLUSH IV FLUSH PRN (02:35)
[2017-06-16] MEDS: PIPERACIL-TAZO 4.5 GM PREMIX 100 ML IV SCH ×4 (02:35→21:40)
[2017-06-16] MEDS: ONDANSETRON HCL 4 MG/2 ML VIAL IVP PRN (03:47)
[2017-06-16] MEDS: MORPHINE SULFATE 4 MG/ML INJ IV PUSH PRN ×3 (03:48→20:05)
[2017-06-16] MEDS: INSULIN ASPART SUPPLEMENTAL SCALE SQ SCH ×4 (07:00→21:47)
[2017-06-16 07:28] LABS: CHLORIDE 97 MEQ/L (98-107); POTASSIUM 3.5 MEQ/L (3.5-5.1); SODIUM (NA) 134 MEQ/L (136-145)
[2017-06-16 07:37] LABS: ANION GAP 7 MEQ/L (5-15); BICARBONATE 29.6 MEQ/L (21.0-32.0); BLOOD UREA NITROGEN 7 MG/DL (7-18)
[2017-06-16 07:40] LABS: ALT (GPT) 674 U/L (10-53); AST (GOT) 935 U/L (15-37); GLOMERULAR FILTRATION RATE 129 ML/MIN (>89)
[2017-06-16 07:43] LABS: ALKALINE PHOSPHATASE 490 U/L (45-117)
[2017-06-16 07:51] LABS: TOTAL BILIRUBIN ADULT 14.3 MG/DL (0.2-1.0)
[2017-06-16 08:00] VITALS: BP 98/62; PULSE 83; RESP 18; TEMP 99.1; O2SAT 95
[2017-06-16] MEDS: PANTOPRAZOLE SOD 40 MG DELAYED RELEASE TAB PO SCH (08:40)
[2017-06-16] MEDS: LISINOPRIL 5 MG TAB PO SCH (08:41)
[2017-06-16] MEDS: POTASSIUM CHLORIDE 20 MEQ PWD PACKET PO SCH ×2 (08:43→21:39)
[2017-06-16] MEDS: INSULIN DETEMIR 100 UNITS/ML VIAL SQ SCH ×2 (08:53→21:46)
[2017-06-16] MEDS: SODIUM CHLORIDE 0.9% FLUSH 10 ML FLUSH IV FLUSH SCH ×2 (09:00→21:39)
--- NOTE | 2017-06-16 10:59 | HHI.PR ---
Subjective Remarks Written by Sarath Howard, acting as scribe for Dr. Marianne Snyder on 06/16/17 at 10: 42. Follow-up visit hep C, transaminitis, cholecystitis, DM 2. Patient seen and examined today. Pt reported "chest pain" but upon further questioning stated it was her upper right quadrant pain, noted yesterday. Pt continued to complain of right upper quadrant pain. Stated stool is "light ( tona) colored." pt reported a bout of nausea and emesis and "feeling better after I threw up." Pt denied SOB/ dyspnea, palpitations, headaches, dizziness, fevers, chills, diarrhea and dysuria. Objective Vitals Vital Signs Date Time Temp Pulse Resp B/P Pulse Ox O2 Delivery O2 Flow Rate FiO2 06/16/17 08:00 99.1 83 18 98/62 95 06/16/17 03:53 18 06/16/17 00:00 96.0 84 20 106/69 97 06/15/17 20:00 98.7 88 20 114/74 96 06/15/17 16:00 97.7 80 18 112/75 93 06/15/17 12:00 97.3 85 19 97/71 94 I/O 06/15/17 06/15/17 06/15/17 06/16/17 06/16/17 06/16/17 07:00 15:00 23:00 07:00 15:00 23:00 Intake Total 240 ml 1085 ml 120 ml Balance 240 ml 1085 ml 120 ml Intake Oral 240 ml 960 ml 120 ml IV Total 125 ml # Voids 5 8 0 # Bowel Movements 5 0 0 Result Diagram: 06/14/17 0540 06/16/17 0605 Imaging Last Impressions Cholangiopancreatography MRI 06/11/17 0000 Signed Impressions: Service Date/Time: Sunday, June 11, 2017 12:17 - CONCLUSION: 1. The intrahepatic and extrahepatic bile ducts are not well evaluated due to patient motion. However, the common bile duct is normal in size. There are no findings to indicate a common duct stone. 2. Diffuse gallbladder wall edema with nonspecific edema and fluid along the hepatoduodenal ligament and mild central periportal edema. 3. Mild splenomegaly. Eugene Erwin MD Abdomen/Pelvis CT 06/10/17 2100 Signed Impressions: Service Date/Time: Saturday, June 10, 2017 23:49 - CONCLUSION: 1. Abnormal gallbladder with apparent wall thickening. High-density material is present in the apparent lumen more centrally with no definite calcified gallstones. This may represent sludge. These findings could indicate acute or chronic cholecystitis. 2. No evidence of biliary obstruction. Syed Chong MD Gall Bladder Ultrasound 06/10/17 0000 Signed Impressions: Service Date/Time: Saturday, June 10, 2017 21:51 - CONCLUSION: 1. Nondiagnostic exam of the gallbladder given the lack of distention. Gallbladder pathology can neither be included or excluded. May consider hepatobiliary tract scan if cholecystitis is suspected clinically. 2. Hepatomegaly without focal lesion. Raul Ferrara MD Objective Remarks GENERAL: Pt initially sleeping, easily awoken, laying a bed. Mild distress secondary to pain. SKIN: Warm and dry. Jaundiced. Multiple tattoos noted. HEAD: Normocephalic. EYES: Scleral icterus present. No injection or drainage. CARDIOVASCULAR: Regular rate and rhythm without murmurs RESPIRATORY: Breath sounds equal bilaterally. No accessory muscle use. GASTROINTESTINAL: Abdomen soft, and nondistended. Tenderness elicited upon palpitation, primarily RUQ and epigastric. Mid-sternal chest pain reproduced upon palpation. MUSCULOSKELETAL: moves extremities and no edema noted in LE PSYCHIATRIC: Alert and oriented x3, pleasant and cooperative. Medications and IVs Current Medications Medications (Trade) Dose Ordered Sig/[place] Route Start Time Stop Time Status Last Admin (NS Flush) 2 ml UNSCH PRN IV FLUSH 06/11/17 01:45 06/16/17 02:35 (NS Flush) 2 ml BID IV FLUSH 06/11/17 09:00 06/16/17 09:00 (Zofran Inj) 4 mg Q6H PRN IVP 06/11/17 01:45 06/16/17 03:47 Naloxone HCl 0.4 mg 0.4 mg UNSCH PRN IV 06/11/17 01:45 (Zosyn 4.5 Gm Premix) 100 ml @ 200 mls/hr Q6H IV 06/11/17 08:00 06/16/17 08:51 (D50w (Vial) Inj) 50 ml UNSCH PRN IV 06/11/17 09:00 (Glucagon Inj) 1 mg UNSCH PRN OTHER 06/11/17 09:00 (KCl Powder) 20 meq Q12HR PO 06/11/17 11:15 06/16/17 08:43 (Xanax) 0.5 mg Q8H PRN PO 06/12/17 11:30 06/16/17 08:40 (Protonix) 40 mg DAILY PO 06/13/17 09:00 06/16/17 08:40 (Morphine Inj) 4 mg Q4HR PRN IV PUSH 06/12/17 11:30 06/16/17 03:48 (Prinivil) 2.5 mg DAILY PO 06/14/17 09:00 06/16/17 08:41 (Levemir Inj) 8 units BID SQ 06/15/17 21:00 06/16/17 08:53 Urinary Catheter: No A/P Problem List: (1) Abnormal liver function tests ICD Code: R79.89 Status: Acute (2) Cholecystitis ICD Code: K81.9 Status: Acute (3) DM2 (diabetes mellitus, type 2) ICD Code: E11.9 Status: Acute (4) Anxiety ICD Code: F41.9 Status: Acute (5) Hypokalemia ICD Code: E87.6 Status: Acute Assessment and Plan Patient is a 47-year-old female with a history of diabetes who comes in with at least a week of worsening abdominal pain. Infectious had intermittent abdominal discomfort with eating for the last year. Acute Liver Failure Elevated liver enzymes Hepatitis C -Liver enzymes Improving. - Continue monitor liver enzymes - Hepatitis panel was performed which shows hepatitis C. Pending Serology/ antigen. - Fans Clerk is following the patient. - Discussed with the patient her hepatitis results. Counseled to her extensively on possible ways of transmission and further workup needed. - Reassurance provided. needs to be tested through PCP. Discuss that serology would be needed for treatment options and treatment is done outpatient. Chest pain: most likely referred abdominal pain. -Troponin -EKG -Monitor. Cholecystitis - Gen. surgery following - MRCP was performed which did not indicate any obstructive process and, mild - Surgery is pending depending on liver enzyme improvement. Will not have surgical procedures with elevated enzymes. - Continue pain control - Continue Zosyn Diabetes - Accu-Cheks with sliding scale insulin. Increase levemir 8 units BID. continue to adjust - Hemoglobin A1c 11.6 - Diabetic education - Low dose lisinopril started (2.5 mg daily) for kidney protection. -Supplemental insulin per sliding scale required Hypokalemia - K+ 40 MEQ - Continue to monitor replete as needed Anxiety - Xanax as needed Hypertension - Blood pressure stable this time - Low-dose lisinopril for kidney protection secondary to diabetes DVT prevention - sequential compression devices, avoid chemical prophylaxis secondary to impending surgery This note was transcribed by diane Howard. I, Dr. Jessica Snyder personally performed the history, physical exam, and medical decision making; and confirmed the accuracy of the information in the transcribed note. Authenticated by Dr. Jessica Snyder on 06/16/17 at 10:42 Discharge Planning Awaiting better improvement in patient's LFTs for surgical intervention. LFTs are trending down Sarath Howard Jr. Jun 16, 2017 10:59 Jessica Snyder MD Jun 16, 2017 12:06
[2017-06-16 12:00] VITALS: BP 148/70; PULSE 70; RESP 19; TEMP 97.6; O2SAT 96
[2017-06-16 16:00] VITALS: BP 107/70; PULSE 91; RESP 18; TEMP 98.4; O2SAT 95
--- NOTE | 2017-06-16 17:28 | EKG ---
Date Performed: 06/16/2017 Time Performed: 10:42:21 PTAGE: 47 years EKG: Sinus rhythm LEFT ANTERIOR FASCICULAR BLOCK POSSIBLE ANTERIOR MYOCARDIAL INFARCTION ABNORMAL ECG Since PREVIOUS TRACING , no significant change noted PREVIOUS TRACIN08/08/2010 01.35 DOCTOR: Elliot Winn Interpretating Date/Time 06/16/2017 17:26:52
[2017-06-16 17:53] LABS: HEPATITIS C RNA GENOTYPE 1a (())
[2017-06-16 19:53] LABS: HCV RNA PCR IU/ML GREATER THAN 100000000 IU/mL (()); HCV RNA PCR LOGIU/ML GREATER THAN 8.00 (())
[2017-06-16 20:00] VITALS: BP 114/70; PULSE 81; RESP 19; TEMP 98.2; O2SAT 95
[2017-06-17 00:56] VITALS: BP 105/68; PULSE 91; RESP 18; TEMP 99.6; O2SAT 96
[2017-06-17] MEDS: MORPHINE SULFATE 4 MG/ML INJ IV PUSH PRN ×4 (01:00→21:42)
[2017-06-17] MEDS: PIPERACIL-TAZO 4.5 GM PREMIX 100 ML IV SCH ×2 (03:02→07:53)
[2017-06-17] MEDS: ALPRAZolam 0.5 MG TAB PO PRN (03:09)
[2017-06-17 06:06] VITALS: BP 98/63; PULSE 80
[2017-06-17 06:54] LABS: CHLORIDE 96 MEQ/L (98-107); POTASSIUM 3.7 MEQ/L (3.5-5.1); SODIUM (NA) 134 MEQ/L (136-145)
[2017-06-17 06:59] LABS: ANION GAP 7 MEQ/L (5-15); BICARBONATE 30.8 MEQ/L (21.0-32.0); BLOOD UREA NITROGEN 5 MG/DL (7-18)
[2017-06-17 07:02] LABS: ALT (GPT) 636 U/L (10-53); AST (GOT) 904 U/L (15-37); GLOMERULAR FILTRATION RATE 124 ML/MIN (>89)
[2017-06-17 07:03] LABS: TOTAL BILIRUBIN ADULT 14.2 MG/DL (0.2-1.0)
[2017-06-17 07:05] LABS: ALKALINE PHOSPHATASE 464 U/L (45-117)
[2017-06-17] MEDS: INSULIN ASPART SUPPLEMENTAL SCALE SQ SCH ×4 (07:56→21:49)
[2017-06-17] MEDS: INSULIN DETEMIR 100 UNITS/ML VIAL SQ SCH ×2 (07:56→21:48)
[2017-06-17 08:00] VITALS: BP 116/77; PULSE 89; RESP 20; TEMP 99.8; O2SAT 95
[2017-06-17] MEDS: PANTOPRAZOLE SOD 40 MG DELAYED RELEASE TAB PO SCH (08:00)
[2017-06-17] MEDS: SODIUM CHLORIDE 0.9% FLUSH 10 ML FLUSH IV FLUSH SCH ×2 (08:00→21:43)
[2017-06-17] MEDS: POTASSIUM CHLORIDE 20 MEQ PWD PACKET PO SCH ×2 (08:01→21:43)
[2017-06-17] MEDS: LISINOPRIL 5 MG TAB PO SCH (08:01)
[2017-06-17] MEDS: SODIUM CHLOR 0.9% 1000 ML INJ 1,000 ML IV SCH ×2 (12:00→22:00)
--- NOTE | 2017-06-17 12:04 | HHI.PR ---
Subjective Remarks Patient seen and evaluated in follow-up for: Acute cholecystitis, elevated transaminitis with reactivation of hepatitis C and for diabetes mellitus type 2 (patient nonadherent). She has been more sleepy and hypotensive after lisinopril was added. She reports improvement in nausea. She still quite jaundiced. She has some dysuria Objective Vitals Vital Signs Date Time Temp Pulse Resp B/P Pulse Ox O2 Delivery O2 Flow Rate FiO2 06/17/17 06:06 80 98/63 06/17/17 00:56 99.6 91 18 105/68 96 06/16/17 20:00 98.2 81 19 114/70 95 06/16/17 16:00 98.4 91 18 107/70 95 06/16/17 12:00 97.6 70 19 148/70 96 I/O 06/16/17 06/16/17 06/16/17 06/17/17 06/17/17 06/17/17 06:59 14:59 22:59 06:59 14:59 22:59 Intake Total 120 ml 360 ml Balance 120 ml 360 ml Intake Oral 120 ml 360 ml # Voids 0 4 2 # Bowel Movements 0 Result Diagram: 06/14/17 0540 06/17/17 0540 Objective Remarks GENERAL: This is a well-nourished, well-developed patient, jaundice CARDIOVASCULAR: Regular rate and rhythm without murmurs, gallops, or rubs. RESPIRATORY: Clear to auscultation. Breath sounds equal bilaterally. No wheezes , rales, or rhonchi. GASTROINTESTINAL: Abdomen soft, non-tender, nondistended. Normal active bowel sounds MUSCULOSKELETAL: Extremities without clubbing, cyanosis, or edema. NEURO: Alert & Oriented x4 to person, place, time, situation. Moves all ext x4 A/P Problem List: (1) Abnormal liver function tests ICD Code: R79.89 Status: Acute Plan: Continues to improve, patient also with hepatitis C (which will need outpatient treatment), herpes , celiac panel, ebv, pending (2) Cholecystitis ICD Code: K81.9 Status: Acute Plan: Continue Augmentin PO Gen Surg eval appreciated; Gi consult appreciated We'll continue with follow-up (3) DM2 (diabetes mellitus, type 2) ICD Code: E11.9 Status: Chronic Plan: Hemoglobin A1c greater than 11, continue Levemir, sliding scale, ADA diet ems educator DC lisinopril due to hypotension (4) Anxiety ICD Code: F41.9 Status: Acute Plan: Continuing with anxiolytics po prn Assessment and Plan Await surgical recommendations as LFTs continued to improve GI follow-up for hepatitis C Aym Schumacher MD Jun 17, 2017 12:04
[2017-06-17] MEDS: IBUPROFEN 400 MG TAB PO PRN (15:01)
[2017-06-17 16:00] VITALS: BP 103/77; PULSE 91; RESP 20; TEMP 99; O2SAT 96
[2017-06-17 20:00] VITALS: BP 112/77; PULSE 82; RESP 16; TEMP 98.3; O2SAT 97
[2017-06-17] MEDS ORDERED: AMOXICIL-CLAV 600 MG/5 ML LIQ 125 ML BTL PO SCH (21:00)
[2017-06-17] MEDS: AMOXICILLIN/CLAVULANATE K 875 MG TAB PO SCH (21:00)
--- NOTE | 2017-06-17 22:41 | HHI.GIFU ---
Subjective Remarks laying in bed comfortable, no pain, tolerating diet, anxious about prognosis Objective Vitals I&O Vital Signs Date Time Temp Pulse Resp B/P Pulse Ox O2 Delivery O2 Flow Rate FiO2 06/17/17 20:00 98.3 82 16 112/77 97 06/17/17 16:00 99.0 91 20 103/77 96 06/17/17 08:00 99.8 89 20 116/77 95 06/17/17 06:06 80 98/63 06/17/17 00:56 99.6 91 18 105/68 96 I/O 06/16/17 06/16/17 06/16/17 06/17/17 06/17/17 06/17/17 07:00 15:00 23:00 07:00 15:00 23:00 Intake Total 120 ml 360 ml 310 ml Balance 120 ml 360 ml 310 ml Intake Oral 120 ml 360 ml IV Total 310 ml # Voids 0 4 2 # Bowel Movements 0 Laboratory Laboratory Tests Test 06/17/17 05:40 Sodium Level 134 Potassium Level 3.7 Chloride Level 96 Carbon Dioxide Level 30.8 Anion Gap 7 Blood Urea Nitrogen 5 Creatinine 0.53 Estimat Glomerular Filtration 124 Rate Random Glucose 183 Calcium Level 8.4 Total Bilirubin 14.2 Aspartate Amino Transf 904 (AST/SGOT) Alanine Aminotransferase 636 (ALT/SGPT) Alkaline Phosphatase 464 Total Protein 5.4 Albumin 2.1 Physical Exam HEENT: Pupils round and reactive to light; normocephalic; atraumatic; + jaundice. Throat is clear. NECK: Neck is supple, no JVD, no lymphadenopathy. CHEST: Chest is clear to auscultation and percussion. CARDIAC: Regular rate and rhythm with no murmur gallop or rubs. ABDOMEN: Soft, nondistended, nontender; no hepatosplenomegaly; bowel sounds are present in all four quadrants. EXTREMITIES: No clubbing, cyanosis, or edema. SKIN: Normal; no rash; + jaundice. LINUX ARCHITECT: No focal deficits; alert and oriented times three. Assessment and Plan Plan elevated LFTs, acute hepatitis C labs stable await the rest of liver W/U will need treatment for c diff as out patient. Estee Bates MD Jun 17, 2017 22:41
[2017-06-18] VITALS: BP 109/75; PULSE 83; RESP 20; TEMP 99.3; O2SAT 94
[2017-06-18] MEDS: IBUPROFEN 400 MG TAB PO PRN ×3 (00:10→22:30)
[2017-06-18 01:12] LABS: EBV VCA IgM Negative (Negative)
[2017-06-18] MEDS: ALPRAZolam 0.5 MG TAB PO PRN ×2 (02:38→22:30)
[2017-06-18 06:02] LABS: HEMATOCRIT 37.2 % (35.0-46.0); MEAN CELL VOLUME 84.1 FL (80.0-100.0); MEAN CORPUSCULAR HEMOGLOBIN 26.8 PG (27.0-34.0); MEAN CORPUSCULAR HGB CONC 31.8 % (32.0-36.0); PLATELET COUNT 304 TH/MM3 (150-450); RED BLOOD COUNT 4.43 MIL/MM3 (4.00-5.30); RED CELL DISTRIBUTION WIDTH 14.6 % (11.6-17.2); WHITE BLOOD COUNT 5.4 TH/MM3 (4.0-11.0)
[2017-06-18 06:15] LABS: CHLORIDE 101 MEQ/L (98-107); POTASSIUM 3.7 MEQ/L (3.5-5.1); SODIUM (NA) 137 MEQ/L (136-145)
[2017-06-18] MEDS: MORPHINE SULFATE 4 MG/ML INJ IV PUSH PRN ×3 (06:22→23:01)
[2017-06-18 06:23] LABS: ANION GAP 7 MEQ/L (5-15); BICARBONATE 29.3 MEQ/L (21.0-32.0); BLOOD UREA NITROGEN 6 MG/DL (7-18); HEMATOLOGY STUDY COMMENT ND; HEMO FLAGS AUTO DIFF
[2017-06-18 06:26] LABS: ALT (GPT) 576 U/L (10-53); AST (GOT) 883 U/L (15-37); GLOMERULAR FILTRATION RATE 149 ML/MIN (>89)
[2017-06-18 06:27] LABS: TOTAL BILIRUBIN ADULT 14.2 MG/DL (0.2-1.0)
[2017-06-18 06:29] LABS: ALKALINE PHOSPHATASE 417 U/L (45-117)
[2017-06-18] MEDS ORDERED: diphenhydrAMINE HCL 50 MG/ML VIAL IV PUSH ONE (07:00)
[2017-06-18 07:32] LABS: EOSINOPHILS 2 % (0-4); NEUTROPHIL # MANUAL DIFF 3.1 TH/MM3 (1.8-7.7); PLATELET ESTIMATE SMEAR NORMAL (NORMAL); PLATELET MORPHOLOGY NORMAL (NORMAL); POLYS (SEG NEUTROPHILS) 58 % (16-70); SCAN/DIFF FINAL DIFF MANUAL; WBC DIFF SAMPLE 100
[2017-06-18 07:57] VITALS: BP 112/72; PULSE 76; RESP 18; TEMP 97.2; O2SAT 95
[2017-06-18] MEDS: PANTOPRAZOLE SOD 40 MG DELAYED RELEASE TAB PO SCH (08:29)
[2017-06-18] MEDS: SODIUM CHLORIDE 0.9% FLUSH 10 ML FLUSH IV FLUSH SCH ×2 (08:29→21:59)
[2017-06-18] MEDS: AMOXICILLIN/CLAVULANATE K 875 MG TAB PO SCH ×2 (08:29→21:52)
[2017-06-18] MEDS: SODIUM CHLOR 0.9% 1000 ML INJ 1,000 ML IV SCH (08:29)
[2017-06-18] MEDS: POTASSIUM CHLORIDE 20 MEQ PWD PACKET PO SCH ×2 (08:30→21:52)
[2017-06-18] MEDS: INSULIN DETEMIR 100 UNITS/ML VIAL SQ SCH ×2 (08:59→21:58)
[2017-06-18] MEDS: INSULIN ASPART SUPPLEMENTAL SCALE SQ SCH ×4 (09:00→21:58)
--- NOTE | 2017-06-18 11:03 | HHI.PR ---
Subjective Remarks Patient seen in follow-up for acute cholecystitis and new diagnosis of hepatitis C. Patient doing well today. She is complaining of some insomnia Objective Vitals Vital Signs Date Time Temp Pulse Resp B/P Pulse Ox O2 Delivery O2 Flow Rate FiO2 06/18/17 07:57 97.2 76 18 112/72 95 06/18/17 00:00 99.3 83 20 109/75 94 06/17/17 20:00 98.3 82 16 112/77 97 06/17/17 16:00 99.0 91 20 103/77 96 I/O 06/17/17 06/17/17 06/17/17 06/18/17 06/18/17 06/18/17 07:00 15:00 23:00 07:00 15:00 23:00 Intake Total 360 ml 310 ml 1500 ml Balance 360 ml 310 ml 1500 ml Intake Oral 360 ml IV Total 310 ml 1500 ml # Voids 2 6 # Bowel Movements 1 Result Diagram: 06/18/17 0455 06/18/17 0455 Objective Remarks GENERAL: This is a well-nourished, well-developed patient, jaundice CARDIOVASCULAR: Regular rate and rhythm without murmurs, gallops, or rubs. RESPIRATORY: Clear to auscultation. Breath sounds equal bilaterally. No wheezes , rales, or rhonchi. GASTROINTESTINAL: Abdomen soft, non-tender, nondistended. Normal active bowel sounds MUSCULOSKELETAL: Extremities without clubbing, cyanosis, or edema. NEURO: Alert & Oriented x4 to person, place, time, situation. Moves all ext x4 A/P Problem List: (1) Abnormal liver function tests ICD Code: R79.89 Status: Acute Plan: Continues to improve, patient also with hepatitis C (which will need outpatient treatment), herpes , celiac panel, ebv, pending ammonia level pending (2) Cholecystitis ICD Code: K81.9 Status: Acute Plan: Continue Augmentin PO As per Gen. surgery will need cholecystectomy when liver improved We'll continue with follow-up (3) DM2 (diabetes mellitus, type 2) ICD Code: E11.9 Status: Chronic Plan: Hemoglobin A1c greater than 11, continue Levemir, sliding scale, ADA diet chemical educator DC lisinopril due to hypotension (4) Anxiety ICD Code: F41.9 Status: Acute Plan: Continuing with anxiolytics po prn Assessment and Plan Await surgical recommendations as LFTs continued to improve GI follow-up for hepatitis C Amy Schumacher MD Jun 18, 2017 11:03
[2017-06-18] MEDS: diphenhydrAMINE HCL 25 MG CAP PO PRN ×2 (11:45→17:32)
[2017-06-18 12:00] VITALS: BP 125/89; PULSE 83; RESP 18; TEMP 97.3; O2SAT 96
[2017-06-18 15:52] LABS: MITOCHONDRIAL ABS LESS THAN 20.0 U (())
[2017-06-18 15:55] VITALS: BP 107/72; PULSE 82; RESP 18; TEMP 98.7; O2SAT 95
[2017-06-18 20:00] VITALS: BP 142/95; PULSE 84; RESP 16; TEMP 97.5; O2SAT 98
--- NOTE | 2017-06-18 23:27 | HHI.GIFU ---
Subjective Remarks Comfortable in bed no new complaints Objective Vitals I&O Vital Signs Date Time Temp Pulse Resp B/P Pulse Ox O2 Delivery O2 Flow Rate FiO2 06/18/17 20:00 97.5 84 16 142/95 98 06/18/17 15:55 98.7 82 18 107/72 95 06/18/17 14:10 18 06/18/17 12:45 18 06/18/17 12:00 97.3 83 18 125/89 96 06/18/17 07:57 97.2 76 18 112/72 95 06/18/17 00:00 99.3 83 20 109/75 94 I/O 06/17/17 06/17/17 06/17/17 06/18/17 06/18/17 06/18/17 07:00 15:00 23:00 07:00 15:00 23:00 Intake Total 360 ml 310 ml 1500 ml 1050 ml 1400 ml Balance 360 ml 310 ml 1500 ml 1050 ml 1400 ml Intake Oral 360 ml 1050 ml 200 ml IV Total 310 ml 1500 ml 1200 ml # Voids 2 6 4 # Bowel Movements 1 0 Laboratory Laboratory Tests Test 06/18/17 04:55 White Blood Count 5.4 Red Blood Count 4.43 Hemoglobin 11.9 Hematocrit 37.2 Mean Corpuscular Volume 84.1 Mean Corpuscular Hemoglobin 26.8 Mean Corpuscular Hemoglobin 31.8 Concent Red Cell Distribution Width 14.6 Platelet Count 304 Mean Platelet Volume 9.1 CBC Comment AUTO DIFF Differential Total Cells 100 Counted Neutrophils % (Manual) 58 Lymphocytes % 32 Monocytes % 8 Eosinophils % 2 Neutrophils # (Manual) 3.1 Differential Comment FINAL DIFF MANUAL Platelet Estimate NORMAL Platelet Morphology Comment NORMAL Hematology Comments Sodium Level 137 Potassium Level 3.7 Chloride Level 101 Carbon Dioxide Level 29.3 Anion Gap 7 Blood Urea Nitrogen 6 Creatinine 0.45 Estimat Glomerular Filtration 149 Rate Random Glucose 212 Calcium Level 8.0 Total Bilirubin 14.2 Aspartate Amino Transf 883 (AST/SGOT) Alanine Aminotransferase 576 (ALT/SGPT) Alkaline Phosphatase 417 Total Protein 5.0 Albumin 2.0 Physical Exam HEENT: normocephalic; atraumatic; + jaundice. Throat is clear. NECK: Neck is supple, CHEST: Chest is clear to auscultation and percussion. CARDIAC: Regular rate and rhythm with no murmur gallop or rubs. ABDOMEN: Soft, nondistended, nontender; no hepatosplenomegaly; bowel sounds are present in all four quadrants. EXTREMITIES: No clubbing, cyanosis, or edema. SKIN: Normal; no rash; + jaundice. AMMONIA REFRIGERATION TECHNICIAN: No focal deficits; alert and oriented times three. Assessment and Plan Plan elevated LFTs, acute hepatitis C Liver function tests improving await the rest of liver W/U but so far negative will need treatment for hepatitis C as out patient. If her numbers continue to decline patient may be discharged from the hospital from a GI standpoint to follow up with GI clinic in 2 weeks Shailesh Barahona MD Jun 18, 2017 23:27
[2017-06-19 00:38] VITALS: BP 126/81; PULSE 82; RESP 16; TEMP 99; O2SAT 94
[2017-06-19] MEDS: diphenhydrAMINE HCL 25 MG CAP PO PRN (00:56)
[2017-06-19] MEDS: INSULIN ASPART SUPPLEMENTAL SCALE SQ SCH ×2 (05:51→11:00)
[2017-06-19 06:16] LABS: CHLORIDE 104 MEQ/L (98-107); POTASSIUM 3.4 MEQ/L (3.5-5.1); SODIUM (NA) 138 MEQ/L (136-145)
[2017-06-19 06:20] LABS: ANION GAP 7 MEQ/L (5-15); BICARBONATE 26.6 MEQ/L (21.0-32.0); BLOOD UREA NITROGEN 6 MG/DL (7-18)
[2017-06-19 06:23] LABS: ALT (GPT) 539 U/L (10-53); AST (GOT) 867 U/L (15-37); GLOMERULAR FILTRATION RATE 149 ML/MIN (>89)
[2017-06-19 06:24] LABS: TOTAL BILIRUBIN ADULT 13.9 MG/DL (0.2-1.0)
[2017-06-19 06:26] LABS: ALKALINE PHOSPHATASE 433 U/L (45-117)
[2017-06-19 08:00] VITALS: BP 111/68; PULSE 76; RESP 18; TEMP 96.9; O2SAT 96
[2017-06-19] MEDS: POTASSIUM CHLORIDE 20 MEQ PWD PACKET PO SCH (08:22)
[2017-06-19] MEDS: AMOXICILLIN/CLAVULANATE K 875 MG TAB PO SCH (08:22)
[2017-06-19] MEDS: PANTOPRAZOLE SOD 40 MG DELAYED RELEASE TAB PO SCH (08:22)
[2017-06-19] MEDS: SODIUM CHLORIDE 0.9% FLUSH 10 ML FLUSH IV FLUSH SCH (08:23)
[2017-06-19] MEDS: INSULIN DETEMIR 100 UNITS/ML VIAL SQ SCH (08:24)
[2017-06-19] MEDS ORDERED: PANT40TA3 PO (10:50)
[2017-06-19] MEDS ORDERED: ALPR.5 PO (10:50)
[2017-06-19] MEDS ORDERED: IBUP400T20 PO (10:50)
[2017-06-19] MEDS ORDERED: LEVEMIR SQ (10:50)
--- NOTE | 2017-06-19 10:50 | HHI.DCPOC ---
Discharge Care Plan Diagnosis: (1) DM2 (diabetes mellitus, type 2) (2) Abnormal liver function tests Goals to Promote Your Health * To prevent worsening of your condition and complications * To maintain your health at the optimal level Directions to Meet Your Goals Take your medications as prescribed Follow your dietary instruction Follow activity as directed Keep your appointments as scheduled Take your immunizations and boosters as scheduled If your symptoms worsen call your PCP, if no PCP go to Urgent Care Center or Emergency Room Smoking is Dangerous to Your Health. Avoid second hand smoke Call the 24-hour hour crisis hotline for domestic abuse at Amy Schumacher MD Jun 19, 2017 10:50
--- NOTE | 2017-06-19 11:02 | HHI.DS ---
Discharge Summary Admission Date Jun 11, 2017 at 01:36 Discharge Date: Jun 19, 2017 Admitting Diagnosis cholecysitis (1) Abnormal liver function tests ICD Code: R79.89 (2) Cholecystitis ICD Code: K81.9 (3) DM2 (diabetes mellitus, type 2) ICD Code: E11.9 (4) Anxiety ICD Code: F41.9 Procedures none Brief History - From Admission Patient is a 47-year-old female with a history of diabetes who comes in with at least a week of worsening abdominal pain. Infectious had intermittent abdominal discomfort with eating for the last year. She says if she eats fatty foods are heavy meals her stomach hurts and she feels nauseated. The last week this has gotten worse. She tried taking ibuprofen and there was no relief. Here she has had relief with IV Dilaudid. Patient noted also that she had pelvic stools and dark colored urine and had become yellow. She came to the emergency room for further evaluation. Patient's town have elevated LFTs and evidence of acute cholecystitis by clinical exam of a Gallego sign and by CT abdomen and pelvis. Patient was seen by surgery recommended for further evaluation. She has been started on IV antibiotics and IV fluids and follow bit better. CBC/BMP: 06/18/17 0455 06/19/17 0505 Significant Findings Laboratory Tests Test 06/17/17 06/18/17 06/19/17 05:40 04:55 05:05 Sodium Level 134 MEQ/L (136-145) Chloride Level 96 MEQ/L (98-107) Blood Urea Nitrogen 5 MG/DL (7-18) 6 MG/DL (7-18) 6 MG/DL (7-18) Random Glucose 183 MG/DL 212 MG/DL 141 MG/DL (74-106) (74-106) (74-106) Calcium Level 8.4 MG/DL 8.0 MG/DL 8.1 MG/DL (8.5-10.1) (8.5-10.1) (8.5-10.1) Total Bilirubin 14.2 MG/DL 14.2 MG/DL 13.9 MG/DL (0.2-1.0) (0.2-1.0) (0.2-1.0) Aspartate Amino Transf 904 U/L (15-37) 883 U/L (15-37) 867 U/L (15-37) (AST/SGOT) Alanine Aminotransferase 636 U/L (10-53) 576 U/L (10-53) 539 U/L (10-53) (ALT/SGPT) Alkaline Phosphatase 464 U/L 417 U/L 433 U/L (45-117) (45-117) (45-117) Total Protein 5.4 GM/DL 5.0 GM/DL 5.1 GM/DL (6.4-8.2) (6.4-8.2) (6.4-8.2) Albumin 2.1 GM/DL 2.0 GM/DL 1.9 GM/DL (3.4-5.0) (3.4-5.0) (3.4-5.0) Mean Corpuscular Hemoglobin 26.8 PG (27.0-34.0) Mean Corpuscular Hemoglobin 31.8 % Concent (32.0-36.0) Creatinine 0.45 MG/DL 0.45 MG/DL (0.50-1.00) (0.50-1.00) Potassium Level 3.4 MEQ/L (3.5-5.1) Ammonia 35 MCMOL/L (11-32) PE at Discharge Jaundiced, pain is minimal GENERAL: This is a well-nourished, well-developed patient, in no apparent distress. CARDIOVASCULAR: Regular rate and rhythm without murmurs, gallops, or rubs. RESPIRATORY: Clear to auscultation. Breath sounds equal bilaterally. No wheezes , rales, or rhonchi. GASTROINTESTINAL: Abdomen soft, non-tender, nondistended. Normal active bowel sounds MUSCULOSKELETAL: Extremities without clubbing, cyanosis, or edema. NEURO: Alert & Oriented x4 to person, place, time, situation. Moves all ext x4 Pt update on day of discharge Patient seen today in follow-up for acute hepatitis with evidence of cholecystitis. Patient doing better. LFTs continued to improve. No further workup inpatient required. Hospital Course Patient is a 47-year-old female who came to the hospital with signs and symptoms of acute cholecystitis. Indeed her gallbladder was thought to be inflamed however she had quite significant elevation in her transaminases. Patient was quite jaundiced. He does have acute hepatitis C which will need outpatient treatment per gastroenterology. Gen. surgery was consulted for her cholecystitis and antibiotics are continued and recommendations to have decrease inflammation evident objectively prior to proceeding with acute cholecystectomy. Patient understood. Patient's diabetes was quite uncontrolled as well due to nonadherence she had education regarding this. Patient was discharged home to follow-up as an outpatient with her new primary care physician as well as the circular stuffer and surgeon Pt Condition on Discharge: Good Discharge Disposition: Discharge Home Discharge Time: > 30 minutes Discharge Instructions DIET: Follow Instructions for: Diabetic Diet Activities you can perform: Regular-No Restrictions Follow up Referrals: Gastroenterology @ [facility] - 1 Month @ [facility] Sur[facility]/Trauma New Medications: Alprazolam (Xanax) 0.5 Mg Tab 0.5 MG PO Q8H PRN anxiety #30 TAB Ibuprofen (Ibuprofen) 400 Mg Tab 400 MG PO Q8H PRN PAIN 3-6 #60 TAB Insulin Detemir Inj (Levemir Inj) 1,000 unit/ 10 ML Vial 8 UNITS SQ BID Blood Sugar Management #62 INJECTION Pantoprazole (Pantoprazole) 40 Mg Tab 40 MG PO DAILY gi #30 TAB Continued Medications: Fenofibrate (Fenofibrate) Unknown Strength Tab Unknown Dose PO HS #30 Ref 0 TAB Gabapentin (Gabapentin) 300 Mg Cap 300 MG PO BID #60 Ref 0 CAP Insulin Detemir Inj (Levemir Inj) 1,000 unit/ 10 ML Vial 25 UNITS SQ HS Do not mix with any other Insulin. Blood Sugar Management #1 Ref 0 VIAL Methocarbamol (Robaxin) 500 Mg Tab 500 MG PO TID Muscle Spasm #15 Ref 0 TAB Metoprolol Tartrate (Metoprolol Tartrate) 25 Mg Tab 25 MG PO HS #30 Ref 0 TAB Discontinued Medications: Ibuprofen (Ibuprofen) 600 Mg Tab 600 MG PO TID #44 Ref 0 TAB Naproxen (Naproxen) 500 Mg Tab 500 MG PO BID Days 14 Ref 0 TAB Amy Schumacher MD Jun 19, 2017 11:02
[2017-06-19 12:00] VITALS: BP 117/72; PULSE 78; RESP 18; TEMP 98.3; O2SAT 95
[2017-06-19 13:52] LABS: IGA SERUM 431 mg/dL (81-463); TISSUE TRANSGLUTAMINASE AB IGG ND U/mL (())
[2017-06-19 23:52] LABS: HERPES 6 IGG 1:10 (()); HERPES 6 IGM <1:20 (()); HERPES INTERPRETATION PAST INFECTION (())
== END 2017-06-19 14:12 | disposition home or self-care (01) | DRG 445 ==
LOC: PHED 19:56 → PHEDA 06-11 01:36 → PH3B 06-11 03:21
PROVIDERS: ADMIT Hospitalist; ATTEND Hospitalist
DX: K81.0 Acute cholecystitis (principal); B17.10 Acute hepatitis C without hepatic coma; I10 Essential (primary) hypertension; E11.65 Type 2 diabetes mellitus with hyperglycemia; F41.9 Anxiety disorder, unspecified; T50.996A Underdosing of other drugs, medicaments and biological substances, initial encounter; Z91.120 Patient's intentional underdosing of medication regimen due to financial hardship; Z86.73 Personal history of transient ischemic attack (TIA), and cerebral infarction without residual deficits; J45.909 Unspecified asthma, uncomplicated; E78.00 Pure hypercholesterolemia, unspecified; E87.6 Hypokalemia
CPT/HCPCS: 74177; 74181; 76377; 76705; 80048; 80053; 80061; 80074; 80076; 81001; 82103; 82104; 82140; 82390; 82784; 82948; 83036; 83516; 83520; 83540; 83550; 83690; 83735; 84484; 85007; 85027; 85610; 85730; 86038; 86255; 86664; 86665; 86790; 87497; 87522; 87902; 93005; 96361; 96374; 96375; C9113; J1170; J1200; J1815; J2060; J2270; J2405; J2543; J7030; Q9967

== ENCOUNTER 2017-08-01 19:47 | Emergency (ER) | payer OTHER ==
[~2017-08-01] VITALS: Ht 167.6 cm; Wt 69.2 kg
[~2017-08-01 19:47] MED LIST changes: +ALPR.5 PO; -FENO160T PO; -GABA300C5 PO; +GLUCTES27; -IBUP-232 PO; +IBUP400T20 PO; -METO25TA3 PO; -NAPR500T PO; +PANT40TA3 PO; -ROBA500T PO; +[UNRECOGNIZED DRUG - OTHER]
[2017-08-01 20:04] VITALS: BP 142/80; PULSE 104; RESP 18; TEMP 98.7
--- NOTE | 2017-08-01 20:29 | PD ---
HPI Chief Complaint: Allergic/Adverse Reaction Time Seen by Provider: 20:23 Travel History International Travel<30 days: No Contact w/Intl Traveler<30days: No Traveled to known affect area: No History of Present Illness HPI 47 YO F with PMH of environmental allergies presents to the ED for evaluation of one week history of "not feeling well." The patient endorses watery eyes, sneezing, clear rhinorrhea, scratchy throat. She denies fevers, chills, sinus congestion, cough, wheezing. She endorses similar symptoms with previous environmental allergy exacerbation. She states that she has not been taking any antihistamines daily. PFSH Past Medical History Hx Anticoagulant Therapy: No Asthma: Yes (uses inhaler- quvar 80 mcg) Anxiety: Yes (panic attacks) Depression: No Cancer: No Cardiovascular Problems: Yes (HTN) High Cholesterol: Yes Chemotherapy: No Cerebrovascular Accident: Yes (TIA about 5 years ago) Diabetes: Yes Patient Takes Glucophage: No Diminished Hearing: No Gastrointestinal Disorders: Yes GERD: Yes Genitourinary: No Hiatal Hernia: No Hypertension: Yes Immune Disorder: No Musculoskeletal: No Neurologic: No Psychiatric: Yes Reproductive: No Res[facility]: Yes ([facility] Tetanus Vaccination: Unknown Influenza Vaccination: No ?: Not Past Surgical History Gynecologic Surgery: Yes (hysterectomy) Hysterectomy: Yes Other Surgery: Yes Social History Alcohol Use: No (PT DENIES) Tobacco Use: No (quit one year ago) Substance Use: No Allergies-Medications (Allergen,Severity, Reaction): Coded Allergies: acetaminophen (Unverified Allergy, Intermediate, Hives, 07/03/17) ciprofloxacin (Unverified Allergy, Intermediate, Hives, 07/03/17) tramadol (Unverified Allergy, Intermediate, Hives, 07/03/17) Reported Meds & Prescriptions Reported Meds & Active Scripts Active Flonase Nasal Stewardson (Fluticasone Nasal Stewardson) 50 Mcg/Act Stewardson 100 Mcg EACH NARE BID 30 Days Gayle-D 24 Hour Allergy (Fexofenadine-Pseudoephedrine ER 24 HR) 180-240 Teto 1 Tab PO DAILY Bd Safetyglide Insulin Sy 30G X 5/16" 0.5 ml (Insulin Syringe/Needle U-100) 1 Mis Mis Box BID Romina Contour Next Blood Test Strips (Blood Glucose Test Strips) 1 Steph Steph Strip .ROUTE TID Levemir Inj (Insulin Detemir) 1,000 unit/ 10 ML Vial 8 Units SQ BID Review of Systems Except as stated in HPI: all other systems reviewed are Neg Physical Exam Narrative GENERAL: Well-nourished, well-developed nontoxic appearing female in no acute distress. SKIN: Warm and dry. Multiple tattoos. HEAD: Normocephalic. Atraumatic. EYES: No scleral icterus. No injection or drainage. PERRLA. EOMI. ENT: [place] tympanic membranes bilaterally. Nasal mucosa is moist, right side boggy and bluish. Oropharynx without erythema, edema or exudate. Posterior oropharyngeal cobblestoning noted. NECK: Supple, trachea midline. No JVD or lymphadenopathy. CARDIOVASCULAR: Regular rate and rhythm without murmurs, gallops, or rubs. RESPIRATORY: Breath sounds clear and equal bilaterally. No accessory muscle use. GASTROINTESTINAL: Abdomen soft, non-tender, nondistended. + Bowel sounds MUSCULOSKELETAL: No cyanosis, or edema. Walks with normal gait. BACK: Nontender without obvious deformity. No CVA tenderness. Data Data Last Documented VS Vital Signs Date Time Temp Pulse Resp B/P (MAP) Pulse Ox O2 Delivery O2 Flow Rate FiO2 08/01/17 20:04 98.7 104 18 142/80 (100) MDM Medical Decision Making Medical Screen Exam Complete: Yes Emergency Medical Condition: Yes Differential Diagnosis Seasonal allergies versus sinusitis versus viral syndrome versus other Narrative Course 47 YO F with PMH of environmental allergies presents to the ED for evaluation of one week history of "not feeling well." The patient endorses watery eyes, sneezing, clear rhinorrhea, scratchy throat. She denies fevers, chills, sinus congestion, cough, wheezing. She states that these symptoms are similar to her environmental allergy symptoms. Vitals reviewed. Physical exam reveals nontoxic-appearing white female in no acute distress. There is some IV bluish mucosa in the right nares and posterior cobblestoning in the oropharynx, otherwise unremarkable. I suspect this is seasonal allergies. Patient was prescribed Gayle and Flonase, instructed to avoid known allergens if possible , take the medication as prescribed, follow up with the primary care provider. She indicated understanding of instructions. She is stable and discharged home. Diagnosis Primary Impression: Environmental and seasonal allergies Referrals: Ear / Nose / Throat Specialist Patient Instructions: Allergies (ED), General Instructions Additional Instructions: Rest, hydrate. Avoid known allergens as possible. Return to normal, gentle activities as tolerated. Take Gayle daily as prescribed. 2 puffs of Flonase in the nostrils daily. Follow-up with the ear, nose and throat specialist. Return to the ED for any urgent or emergent medical condition. Med/Other Pt SpecificInfo: Prescription(s) given Scripts Fluticasone Nasal Stewardson (Flonase Nasal Stewardson) 50 Mcg/Act Stewardson 100 MCG EACH NARE BID for Allergies for 30 Days, #1 BOTTLE 0 Refills Prov: Luis Genao MD 08/01/17 Fexofenadine-Pseudoephedrine ER 24 HR (Gayle-D 24 Hour Allergy) 180-240 Teto 1 TAB PO DAILY for Allergy Management, #30 TAB 0 Refills Prov: Luis Genao MD 08/01/17 Disposition: 01 DISCHARGE HOME Condition: Stable Maddie Noble Aug 01, 2017 20:28
[2017-08-01] MEDS ORDERED: FLUT1SPR5 EACH NARE (20:38)
[2017-08-01] MEDS ORDERED: FEXO1TAB97 PO (20:38)
== END 2017-08-01 20:50 | disposition home or self-care (01) ==
LOC: PHED 19:47 → PHEFT 20:50
DX: J30.2 Other seasonal allergic rhinitis (principal); E11.9 Type 2 diabetes mellitus without complications; E78.00 Pure hypercholesterolemia, unspecified; I10 Essential (primary) hypertension; Z86.73 Personal history of transient ischemic attack (TIA), and cerebral infarction without residual deficits; K21.9 Gastro-esophageal reflux disease without esophagitis
CPT/HCPCS: 99283

== ENCOUNTER 2017-10-09 07:14 | Emergency (ER) | payer SELFPAY ==
[~2017-10-09] VITALS: Ht 167.6 cm; Wt 71.0 kg
[~2017-10-09 07:14] MED LIST changes: -ALPR.5 PO; +FEXO1TAB97 PO; +FLUT1SPR5 EACH NARE; -IBUP400T20 PO; +MEDR4PAK PO; -PANT40TA3 PO; +VENTAER INH
[2017-10-09 07:15] VITALS: BP 140/72; PULSE 83; RESP 16; TEMP 98.5; O2SAT 97
--- NOTE | 2017-10-09 07:26 | PD ---
HPI Chief Complaint: med refill Time Seen by Provider: 07:30 Travel History International Travel<30 days: No Contact w/Intl Traveler<30days: No Traveled to known affect area: No History of Present Illness HPI patient is a diabetic that has been out of meds for several days, although no active complaint, patient is experiencing more episodes of polydipsia/ polyuria...states that she can't afford insulin she was prescribed most recently , she states taht she used to be on metformin before and then janumet but they also got too expensive and she was noncompliant with it as well. pmhx:dm, htn, hyperchol, hepC, asthma (smoker) PFSH Past Medical History Hx Anticoagulant Therapy: No Asthma: Yes (uses inhaler- quvar 80 mcg) Anxiety: Yes (panic attacks) Depression: No Cancer: No Cardiovascular Problems: Yes (HTN) High Cholesterol: Yes Chemotherapy: No Cerebrovascular Accident: Yes (TIA about 5 years ago) Diabetes: Yes Diminished Hearing: No Gastrointestinal Disorders: Yes GERD: Yes Genitourinary: No Hiatal Hernia: No Hypertension: Yes Immune Disorder: No Musculoskeletal: No Neurologic: No Psychiatric: Yes Reproductive: No Respiratory: Yes Past Surgical History Gynecologic Surgery: Yes (hysterectomy) Hysterectomy: Yes Other Surgery: Yes Social History Alcohol Use: No (PT DENIES) Tobacco Use: No (Former) Substance Use: No Allergies-Medications (Allergen,Severity, Reaction): Coded Allergies: acetaminophen (Unverified Allergy, Intermediate, pt denies, 10/09/17) ciprofloxacin (Unverified Allergy, Intermediate, Hives, 10/09/17) tramadol (Unverified Allergy, Intermediate, pt denies, 10/09/17) Reported Meds & Prescriptions Reported Meds & Active Scripts Active Levemir Inj (Insulin Detemir) 1,000 unit/ 10 ML Vial 8 Units SQ BID Review of Systems Except as stated in HPI: all other systems reviewed are Neg General / Constitutional: No: Fever Eyes: No: Visual changes HENT: No: Headaches Cardiovascular: No: Chest Pain or Discomfort Respiratory: No: Shortness of Breath Gastrointestinal: No: Abdominal Pain Genitourinary: No: Dysuria Musculoskeletal: No: Pain Skin: No Rash Neurologic: No: Weakness Psychiatric: No: Depression Endocrine: Positive: Polyuria, Polydipsia Hematologic/Lymphatic: No: Easy Bruising Physical Exam Narrative GENERAL: SKIN: Warm and dry. HEAD: Atraumatic. Normocephalic. EYES: Pupils equal and round. No scleral icterus. No injection or drainage. ENT: No nasal bleeding or discharge. Mucous membranes pink and moist. NECK: Trachea midline. No JVD. CARDIOVASCULAR: Regular rate and rhythm. RESPIRATORY: No accessory muscle use. Clear to auscultation. Breath sounds equal bilaterally. GASTROINTESTINAL: Abdomen soft, non-tender, nondistended. MUSCULOSKELETAL: Extremities without clubbing, cyanosis, or edema. No obvious deformities. NEUROLOGICAL: Awake and alert. No obvious cranial nerve deficits. Motor grossly within normal limits. Five out of 5 muscle strength in the arms and legs. Normal speech. PSYCHIATRIC: Appropriate mood and affect; insight and judgment normal. Data Data Last Documented VS Vital Signs Date Time Temp Pulse Resp B/P (MAP) Pulse Ox O2 Delivery O2 Flow Rate FiO2 10/09/17 07:29 Room Air 10/09/17 07:15 98.5 83 16 140/72 (94) 97 Orders Orders Basic Metabolic Panel (Bmp) (10/09/17 07:30) Blood Gas Venous Ph (10/09/17 07:30) Iv Access Insert/Monitor (10/09/17 07:30) Blood Glucose (10/09/17 07:30) Sodium Chlor 0.9% 1000 Ml Inj (Ns 1000 M (10/09/17 07:30) Insulin Human Regular Inj (Novolin R Inj (10/09/17 07:45) Insulin Human Regular Inj (Novolin R Inj (10/09/17 07:45) Labs Laboratory Tests Test 10/09/17 07:40 Venous Blood pH 7.38 Blood Urea Nitrogen 12 MG/DL Creatinine 0.75 MG/DL Random Glucose 388 MG/DL Calcium Level 8.8 MG/DL Sodium Level 135 MEQ/L Potassium Level 3.9 MEQ/L Chloride Level 99 MEQ/L Carbon Dioxide Level 26.1 MEQ/L Anion Gap 10 MEQ/L Estimat Glomerular Filtration Rate 83 ML/MIN [facility] Medical Decision Making Medical Screen Exam Complete: Yes Emergency Medical Condition: Yes Medical Record Reviewed: Yes Differential Diagnosis dka v hyperosmolar v hyperglycemia Narrative Course patient is found to have hyperglycemia by glucosemeter reading "hi". vbg ph was normal without e/o dka. patient given ivf and insulin Diagnosis Primary Impression: Hyperglycemia Referrals: [facility] Patient Instructions: General Instructions, Type 2 Diabetes in Adults (ED) Scripts Metformin (Metformin) 1,000 Mg Tab 1000 MG PO BIDPC for Blood Sugar Management, #60 TAB 1 Refill Prov: Lawson Berg MD 10/09/17 Disposition: 01 DISCHARGE HOME Condition: Stable Lawson Berg MD Oct 09, 2017 07:26
[2017-10-09] MEDS ORDERED: SODIUM CHLOR 0.9% 1000 ML INJ 1,000 ML IV ONE (07:30)
[2017-10-09] MEDS ORDERED: INSULIN HUMAN REGULAR 1,000 UNITS/10 ML VIAL SQ ONE (07:45)
[2017-10-09] MEDS ORDERED: INSULIN HUMAN REGULAR 1,000 UNITS/10 ML VIAL IV PUSH ONE (07:45)
[2017-10-09 08:03] LABS: POTASSIUM 3.9 MEQ/L (3.5-5.1)
[2017-10-09 08:06] LABS: BICARBONATE 26.1 MEQ/L (21.0-32.0)
[2017-10-09] MEDS ORDERED: METF1000 PO (08:21)
[2017-10-09 09:47] VITALS: BP 134/84
== END 2017-10-09 09:47 | disposition home or self-care (01) ==
LOC: PHED 07:14
DX: E11.65 Type 2 diabetes mellitus with hyperglycemia (principal); Z79.4 Long term (current) use of insulin; T38.3X6A Underdosing of insulin and oral hypoglycemic [antidiabetic] drugs, initial encounter; Z91.120 Patient's intentional underdosing of medication regimen due to financial hardship
CPT/HCPCS: 80048; 82800; 96361; 96374; 99284; J1815; J7030

== ENCOUNTER 2017-11-19 18:52 | Emergency (ER) | payer SELFPAY ==
[~2017-11-19] VITALS: Ht 167.6 cm; Wt 72.3 kg
[~2017-11-19 18:52] MED LIST changes: -FEXO1TAB97 PO; -FLUT1SPR5 EACH NARE; -GLUCTES27; -MEDR4PAK PO; +METF1000 PO; -VENTAER INH; -[UNRECOGNIZED DRUG - OTHER]
[2017-11-19 19:15] VITALS: BP 112/64; PULSE 111; RESP 18; TEMP 99.2; O2SAT 97
[2017-11-19] MEDS ORDERED: PROM25TA10 PO (19:42)
--- NOTE | 2017-11-19 19:42 | PD ---
HPI Chief Complaint: GI Complaint Time Seen by Provider: 19:29 Travel History International Travel<30 days: No Contact w/Intl Traveler<30days: No Traveled to known affect area: No History of Present Illness HPI 47-year-old female complaining of nausea vomiting diarrhea abdominal cramping. Patient states the symptoms started yesterday. Patient states that symptoms are better today. Patient denies abdominal pain today. Patient has been able to keep fluids down today. Patient denies any headache. Patient denies any coughing congestion. Patient denies any chest pain or shortness of breath. Patient denies any dysuria or frequency. Patient denies any vaginal discharge or bleeding. Patient denies fever chills. Patient denies any blood or mucus in the stool or vomitus. PFSH Past Medical History Hx Anticoagulant Therapy: No Asthma: Yes Anxiety: Yes (panic attacks) Depression: No Cancer: No Cardiovascular Problems: Yes (HTN) High Cholesterol: Yes Chemotherapy: No Cerebrovascular Accident: Yes (TIA) Diabetes: Yes Patient Takes Glucophage: Yes Diminished Hearing: No Gastrointestinal Disorders: Yes (GALLSTONES) GERD: Yes Genitourinary: No Hiatal Hernia: No Hypertension: Yes Immune Disorder: No Musculoskeletal: No Neurologic: No Psychiatric: Yes Reproductive: No Respiratory: Yes (asthma) Tetanus Vaccination: < 5 Years Influenza Vaccination: No ?: Not : 8 Miscarriage: 3 Ovarian Cysts: Yes Past Surgical History Gynecologic Surgery: Yes (hysterectomy) Hysterectomy: Yes Other Surgery: Yes Social History Alcohol Use: No (PT DENIES) Tobacco Use: No Substance Use: No Allergies-Medications (Allergen,Severity, Reaction): Coded Allergies: acetaminophen (Unverified Allergy, Intermediate, pt denies, 11/19/17) ciprofloxacin (Unverified Allergy, Intermediate, Hives, 11/19/17) tramadol (Unverified Allergy, Intermediate, pt denies, 11/19/17) Reported Meds & Prescriptions Reported Meds & Active Scripts Active Metformin (Metformin HCl) 1,000 Mg Tab 1,000 Mg PO BIDPC Review of Systems General / Constitutional: No: Fever Eyes: No: Visual changes HENT: No: Headaches Cardiovascular: No: Chest Pain or Discomfort Respiratory: No: Shortness of Breath Gastrointestinal: Positive: Nausea, Vomiting, Diarrhea, Abdominal Pain Genitourinary: No: Dysuria Musculoskeletal: No: Pain Skin: No Rash Neurologic: No: Weakness Psychiatric: No: Depression Endocrine: No: Polydipsia Hematologic/Lymphatic: No: Easy Bruising Physical Exam Narrative GENERAL: Well-nourished, well-developed patient. SKIN: Focused skin assessment warm/dry. HEAD: Normocephalic. EYES: No scleral icterus. No injection or drainage. NECK: Supple, trachea midline. No JVD or lymphadenopathy. CARDIOVASCULAR: Regular rate and rhythm without murmurs, gallops, or rubs. RESPIRATORY: Breath sounds equal bilaterally. No accessory muscle use. GASTROINTESTINAL: Abdomen soft, nondistended. Patient has mild tenderness on palpation lower abdomen. No rebound tenderness. No mass. MUSCULOSKELETAL: No cyanosis, or edema. BACK: Nontender without obvious deformity. No CVA tenderness. Neurologic exam normal. Data Data Last Documented VS Vital Signs Date Time Temp Pulse Resp B/P (MAP) Pulse Ox O2 Delivery O2 Flow Rate FiO2 11/19/17 19:15 99.2 111 18 112/64 (80) 97 MDM Medical Decision Making Medical Screen Exam Complete: Yes Emergency Medical Condition: Yes Differential Diagnosis Differential diagnosis including gastroenteritis, dehydration, electrolyte imbalance, colitis. Narrative Course 47-year-old female with nausea vomiting diarrhea abdominal cramping. Patient states the symptoms started yesterday however much better today. Patient's able to keep fluids down today. Patient has mild tachycardia otherwise vital signs stable. Physical exam with mild abdominal tenderness. Diagnosis Primary Impression: Gastroenteritis Patient Instructions: General Instructions Additional Instructions: Phenergan as needed for nausea vomiting. [id number] Imodium as needed for diarrhea. Advised fluid. Follow-up with personal physician. Return if persistent problem or worse Med/Other Pt SpecificInfo: Prescription(s) given Scripts Promethazine (Phenergan) 25 Mg Tablet 25 MG PO Q6H Y for NAUSEA OR VOMITING, #10 TAB 0 Refills Prov: Eddie Santos MD 11/19/17 Disposition: 01 DISCHARGE HOME Condition: Stable Eddie Santos MD Nov 19, 2017 19:42
== END 2017-11-19 20:28 | disposition home or self-care (01) ==
LOC: PHED 18:52
DX: K52.9 Noninfective gastroenteritis and colitis, unspecified (principal); I10 Essential (primary) hypertension; E11.9 Type 2 diabetes mellitus without complications; K21.9 Gastro-esophageal reflux disease without esophagitis; E78.00 Pure hypercholesterolemia, unspecified; Z79.84 Long term (current) use of oral hypoglycemic drugs; Z87.09 Personal history of other diseases of the respiratory system; Z86.59 Personal history of other mental and behavioral disorders; Z86.73 Personal history of transient ischemic attack (TIA), and cerebral infarction without residual deficits
CPT/HCPCS: 99283

== ENCOUNTER 2017-12-31 17:28 | Emergency (ER) | payer SELFPAY ==
[~2017-12-31] VITALS: Ht 167.6 cm; Wt 74.4 kg
[~2017-12-31 17:28] MED LIST changes: -LEVEMIR SQ; +PROM25TA10 PO
[2017-12-31 17:39] VITALS: BP 134/83; PULSE 105; RESP 18; TEMP 98.7; O2SAT 97
[2017-12-31 17:56] LABS: BILIRUBIN, URINE NEG (NEG); BLOOD, URINE TRACE (NEG); GLUCOSE,URINE 1000 OR GREATER mg/dL (NEG); KETONE, URINE TRACE mg/dL (NEG); NITRITE,URINE NEG (NEG); URINE LEUKOCYTE ESTERASE NEG (NEG)
--- NOTE | 2017-12-31 18:11 | PD ---
HPI Chief Complaint: elevated blood glucose Time Seen by Provider: 17:54 Travel History International Travel<30 days: No Contact w/Intl Traveler<30days: No Traveled to known affect area: No History of Present Illness HPI 47yo F with PMH of NIDDM presents to the ED with multiple complaints. Said her glucose is elevated because she has not taken her metformin for 1 month. Said she goes to urination frequently and when she holds her urine, she has some abdominal pain. Otherwise no abdominal pain. +Polyuria and polydipsia but all the time. Denies any fever, chest pain, sob, n/v, vaginal bleeding or discharge , focal weakness or numbness. Pt said she has no insurance but got into [facility]. PFSH Past Medical History Hx Anticoagulant Therapy: No Asthma: Yes Anxiety: Yes (panic attacks) Depression: No Cancer: No Cardiovascular Problems: Yes High Cholesterol: Yes Chemotherapy: No Cerebrovascular Accident: Yes (TIA) Diabetes: Yes Diminished Hearing: No Gastrointestinal Disorders: Yes (GALLSTONES) GERD: Yes Genitourinary: No Hiatal Hernia: No Hypertension: Yes Immune Disorder: No Musculoskeletal: No Neurologic: No Psychiatric: Yes Reproductive: No Respiratory: Yes (asthma) ?: Not : 8 Miscarriage: 3 Ovarian Cysts: Yes Past Surgical History Gynecologic Surgery: Yes (hysterectomy) Hysterectomy: Yes Other Surgery: Yes Social History Alcohol Use: No (PT DENIES) Tobacco Use: No Substance Use: No Allergies-Medications (Allergen,Severity, Reaction): Coded Allergies: acetaminophen (Unverified Allergy, Intermediate, pt denies, 12/31/17) ciprofloxacin (Unverified Allergy, Intermediate, Hives, 12/31/17) tramadol (Unverified Allergy, Intermediate, pt denies, 12/31/17) Reported Meds & Prescriptions Reported Meds & Active Scripts Active No Active Prescriptions or Reported Medications Review of Systems Except as stated in HPI: all other systems reviewed are Neg Physical Exam Narrative GENERAL: 47yo F not in distress. SKIN: Focused skin assessment warm/dry. HEAD: Atraumatic. Normocephalic. . CARDIOVASCULAR: Regular rate and rhythm. No murmur appreciated. RESPIRATORY: No accessory muscle use. Clear to auscultation. Breath sounds equal bilaterally. GASTROINTESTINAL: Abdomen soft, mild epigastric ttp. No rebound tenderness or guarding. MUSCULOSKELETAL: No obvious deformities. No clubbing. No cyanosis. No edema. NEUROLOGICAL: Awake and alert. No obvious cranial nerve deficits. Motor grossly within normal limits. Normal speech. PSYCHIATRIC: Appropriate mood and affect; insight and judgment normal. Data Data Last Documented VS Vital Signs Date Time Temp Pulse Resp B/P (MAP) Pulse Ox O2 Delivery O2 Flow Rate FiO2 12/31/17 19:29 86 132/87 (102) 97 Room Air 12/31/17 17:39 98.7 18 Orders Orders Urinalysis - C+S If Indicated (12/31/17 17:35) Complete Blood Count With Diff (12/31/17 18:06) Comprehensive Metabolic Panel (12/31/17 18:06) Lipase (12/31/17 18:06) Famotidine Inj (Pepcid Inj) (12/31/17 18:15) Sodium Chlor 0.9% 1000 Ml Inj (Ns 1000 M (12/31/17 19:30) Insulin Human Regular Inj (Novolin R Inj (12/31/17 19:30) Ondansetron Inj (Zofran Inj) (12/31/17 20:15) Blood Glucose (12/31/17 20:18) Labs Laboratory Tests Test 12/31/17 17:45 12/31/17 18:25 Urine Color YELLOW Urine Turbidity CLEAR Urine pH 6.0 Urine Specific [place] GREATER THAN 1.035 Urine Protein NEG mg/dL Urine Glucose (UA) 1000 OR GREATER mg/dL Urine Ketones TRACE mg/dL Urine Occult Blood TRACE Urine Nitrite NEG Urine Bilirubin NEG Urine Leukocyte Esterase NEG Urine RBC 0-3 /hpf Urine Squamous Epithelial Cells 0-5 /hpf Microscopic Urinalysis Comment CULT NOT INDICATED White Blood Count 6.5 TH/MM3 Red Blood Count 4.97 MIL/MM3 Hemoglobin 14.0 GM/DL Hematocrit 41.8 % Mean Corpuscular Volume 84.2 FL Mean Corpuscular Hemoglobin 28.1 PG Mean Corpuscular Hemoglobin Concent 33.4 % Red Cell Distribution Width 11.5 % Platelet Count 258 TH/MM3 Mean Platelet Volume 7.9 FL Neutrophils (%) (Auto) 59.5 % Lymphocytes (%) (Auto) 32.5 % Monocytes (%) (Auto) 5.8 % Eosinophils (%) (Auto) 1.8 % Basophils (%) (Auto) 0.4 % Neutrophils # (Auto) 3.9 TH/MM3 Lymphocytes # (Auto) 2.1 TH/MM3 Monocytes # (Auto) 0.4 TH/MM3 Eosinophils # (Auto) 0.1 TH/MM3 Basophils # (Auto) 0.0 TH/MM3 CBC Comment DIFF FINAL Differential Comment Blood Urea Nitrogen 16 MG/DL Creatinine 0.78 MG/DL Random Glucose 332 MG/DL Total Protein 7.5 GM/DL Albumin 3.6 GM/DL Calcium Level 9.4 MG/DL Alkaline Phosphatase 102 U/L Aspartate Amino Transf (AST/SGOT) 15 U/L Alanine Aminotransferase (ALT/SGPT) 29 U/L Total Bilirubin 0.6 MG/DL Sodium Level 135 MEQ/L Potassium Level 3.6 MEQ/L Chloride Level 100 MEQ/L Carbon Dioxide Level 24.9 MEQ/L Anion Gap 10 MEQ/L Estimat Glomerular Filtration Rate 79 ML/MIN Lipase 227 U/L MDM Medical Decision Making Medical Screen Exam Complete: Yes Emergency Medical Condition: Yes Differential Diagnosis Uncontrolled DM secondary to noncompliance vs. UTI vs. electrolyte abnormality Narrative Course 47yo F with diabetes here with multiple complaints after being noncompliant with her metformin for a month. Labs reviewed, no leukocytosis. Glucose elevated at 332. CO2 normal. No increase in anion gap. Lipase normal. UA showed negative. leukocyte. Culture not indicated. Pt given zofran and famotidine. Denies any abdominal pain. Pt given NS IVF and 5 units of regular insulin. Repeat glucose is 232. Pt requesting me to write that she needs to go to bathroom at work because she said her boss wont let her. Pt has appointment with [facility]. Return precautions given. Diagnosis Primary Impression: Uncontrolled diabetes mellitus Qualified Codes: E11.65 - Type 2 diabetes mellitus with hyperglycemia Patient Instructions: General Instructions Departure Forms: Tests/Procedures, Work Release Enter return to work date: Jan 02, 2018 Additional Instructions: Please follow up with your primary care physician in 2-3 days. Please return to the ED if symptoms worsen. Please take medication as instructed. Please use the bathroom when you need to. Med/Other Pt SpecificInfo: Prescription(s) given Scripts Metformin (Metformin) 1,000 Mg Tab 1000 MG PO BIDPC for Blood Sugar Management, #60 TAB 0 Refills Prov: Sarah Arguello 12/31/17 Disposition: 01 DISCHARGE HOME Condition: Stable ArguelloSarah DO Dec 31, 2017 18:11
[2017-12-31] MEDS ORDERED: FAMOTIDINE 20 MG/2 ML VIAL IV PUSH ONE (18:15)
[2017-12-31 18:35] LABS: AUTOMATED NEUTROPHIL # 3.9 TH/MM3 (1.8-7.7); BASOPHIL % 0.4 % (0.0-2.0); EOSINOPHIL # 0.1 TH/MM3 (0-0.4); EOSINOPHIL % 1.8 % (0.0-4.0); HEMATOCRIT 41.8 % (35.0-46.0); LYMPH % 32.5 % (9.0-44.0); LYMPHOCYTE # 2.1 TH/MM3 (1.0-4.8); MEAN CELL VOLUME 84.2 FL (80.0-100.0); MEAN CORPUSCULAR HEMOGLOBIN 28.1 PG (27.0-34.0); MEAN CORPUSCULAR HGB CONC 33.4 % (32.0-36.0); MEAN PLATELET VOLUME 7.9 FL (7.0-11.0); MONO % 5.8 % (0.0-8.0); MONOCYTE # 0.4 TH/MM3 (0-0.9); NEUT % 59.5 % (16.0-70.0); PLATELET COUNT 258 TH/MM3 (150-450); RED BLOOD COUNT 4.97 MIL/MM3 (4.00-5.30); RED CELL DISTRIBUTION WIDTH 11.5 % (11.6-17.2); WHITE BLOOD COUNT 6.5 TH/MM3 (4.0-11.0)
[2017-12-31 18:39] LABS: URINE COLOR YELLOW (YELLW/STRAW)
[2017-12-31 18:40] LABS: RBC, URINE 0-3 /hpf (0-3); SQUAMOUS EPITHELIAL CELL URINE 0-5 /hpf (0-5)
[2017-12-31 18:47] LABS: CHLORIDE 100 MEQ/L (98-107); SODIUM (NA) 135 MEQ/L (136-145)
[2017-12-31 18:52] LABS: CALCIUM 9.4 MG/DL (8.5-10.1)
[2017-12-31 18:53] LABS: ALBUMIN 3.6 GM/DL (3.4-5.0); BICARBONATE 24.9 MEQ/L (21.0-32.0); BLOOD UREA NITROGEN 16 MG/DL (7-18); GLUCOSE,RANDOM 332 MG/DL (74-106)
[2017-12-31 18:55] LABS: ALT (GPT) 29 U/L (10-53)
[2017-12-31 18:56] LABS: AST (GOT) 15 U/L (15-37); CREATININE 0.78 MG/DL (0.50-1.00); GLOMERULAR FILTRATION RATE 79 ML/MIN (>89)
[2017-12-31 18:57] LABS: TOTAL BILIRUBIN ADULT 0.6 MG/DL (0.2-1.0); TOTAL PROTEIN 7.5 GM/DL (6.4-8.2)
[2017-12-31 18:58] LABS: ALKALINE PHOSPHATASE 102 U/L (45-117)
[2017-12-31 19:29] VITALS: BP 132/87; PULSE 86; O2SAT 97
[2017-12-31] MEDS ORDERED: SODIUM CHLOR 0.9% 1000 ML INJ 1,000 ML IV ONE (19:30)
[2017-12-31] MEDS ORDERED: INSULIN HUMAN REGULAR 1,000 UNITS/10 ML VIAL SQ ONE (19:30)
[2017-12-31] MEDS ORDERED: ONDANSETRON HCL 4 MG/2 ML VIAL IV PUSH ONE (20:15)
[2017-12-31] MEDS ORDERED: METF1000 PO (20:23)
== END 2017-12-31 21:06 | disposition home or self-care (01) ==
LOC: PHED 17:28
DX: E11.65 Type 2 diabetes mellitus with hyperglycemia (principal); R35.0 Frequency of micturition; R10.9 Unspecified abdominal pain; R63.1 Polydipsia; I10 Essential (primary) hypertension; E78.00 Pure hypercholesterolemia, unspecified; K21.9 Gastro-esophageal reflux disease without esophagitis; Z91.14 Patient's other noncompliance with medication regimen; Z87.09 Personal history of other diseases of the respiratory system; Z86.59 Personal history of other mental and behavioral disorders; Z86.79 Personal history of other diseases of the circulatory system; Z87.19 Personal history of other diseases of the digestive system; Z86.73 Personal history of transient ischemic attack (TIA), and cerebral infarction without residual deficits
CPT/HCPCS: 80053; 81001; 83690; 85025; 96365; 96372; 96375; 99284; J1815; J2405; J7030

== ENCOUNTER 2018-09-04 23:31 | Observation (INO) ==
[2018-09-05] MEDS ORDERED: Ketorolac Inj 30 MG/ML (IVP) Vial IV.PUSH ONE (00:24)
[2018-09-05] MEDS ORDERED: Sod Chloride 0.9% Inj 1,000 ML IV.SIG ONE (00:24)
[2018-09-05] MEDS ORDERED: Sod Chloride 0.9% Inj 1,000 ML IV.SIG SCH (00:30)
--- NOTE | 2018-09-05 00:38 | ED ---
HPI General Chief Complaint: Abdominal Pain Stated Complaint: flank pain bilat Time Seen by Provider: 09/05/18 00:24 Source: patient Mode of arrival: ambulatory Limitations: no limitations History of Present Illness HPI narrative: Patient followed up with her primary care provider. CT performed in the emergency department identified no acute process other than some possibly mild enteritis.48-year-old female presents to the emergency department because of left flank pain. Patient states has had symptoms for a few days. Patient was seen earlier today for the same pain by her primary care provider and prior to that was seen in the emergency department. Patient does not report fever or chills. Patient had nausea vomiting and x 1 episode of diarrhea. Symptom onset after eating pork but other individuals asymptomatic. Patient hasn't been taking her metformin. Patient prescribed Phenergan and given samples of Zofran by her primary care provider at the [facility]. Patient also given prescription for pain medication but has not filled this prescription. Patient is diabetic. In the emergency department she had been identified to have hyperglycemia was given IV fluids and insulin with improvement of blood sugar and was discharged. Patient presents due to severe pain. Patient states that pain is intolerable. Patient denies any chest pain or shortness of breath. No report of hematemesis coffee-ground emesis melena hematochezia. No dysuria frequency urgency hematuria and no report of vaginal discharge or vaginal bleeding. Pyuria polydipsia polyphagia or anorexia. MD complaint: Reports flank pain (left) Onset (ago): day(s) Pain Consistency: constant Location: Reports L flank Severity: severe Severity scale (1-10): 8 Quality: Reports cramping, stabbing, aching and fullness Radiation: Reports none Migration to: Reports no migration Relieving factors: nothing Exacerbating factors: vomiting and movement Context: Reports history of similar episodes; Denies foreign travel, possible food poisoning, sick contacts, recent antibiotic use, recent surgery/procedure and recent injury Associated symptoms: Reports nausea and vomiting; Denies diarrhea, fever, chills , constipation, dysuria, hematemesis, hematochezia, melena, hematuria, anorexia and syncope Treatments prior to arrival: Reports prescription analgesics Related Data Patient : No Home Medications Medication Instructions Recorded Confirmed ibuprofen 800 mg PO QID PRN 09/04/18 09/04/18 insulin detemir U-100 [Levemir 10 unit SUBCUT QPM 10/26/18 10/26/18 U-100 Insulin] oxycodone-acetaminophen [Percocet] 1 tab PO Q4-6H PRN 09/05/18 09/05/18 Allergies Allergy/AdvReac Type Severity Reaction Status Date / Time ciprofloxacin Allergy Intermediate Hives Verified 09/05/18 00:10 Review of Systems ROS: all other systems reviewed are negative [facility] Medical History Medical History Asthma (Acute) Cholecystitis (Acute) Diabetes 1.5, managed as type 2 (Acute) Fatty liver (Acute) H/O: hysterectomy (Acute) Hepatitis C (Acute) Social History Social History Substance History: Unable to Obtain Second Hand Smoke Exposure: No Smoking Status: Former smoker How Often Do You Have a Drink Containing Alcohol: Never Recent Travel in [facility] within the Last 8 Weeks: No Recent Out of Country Travel within the Last 8 Weeks: No Immunization History Tetanus Immunization: <5 Years Exam Narrative Exam Narrative: GENERAL: Well-nourished, well-developed patient. SKIN: Focused skin assessment warm/dry. HEAD: Normocephalic. EYES: No scleral icterus. No injection or drainage. NECK: Supple, trachea midline. No JVD or lymphadenopathy. CARDIOVASCULAR: Regular rate and rhythm without murmurs, gallops, or rubs. RESPIRATORY: Breath sounds equal bilaterally. No accessory muscle use. GASTROINTESTINAL: Abdomen soft, non-tender, nondistended. MUSCULOSKELETAL: No cyanosis, or edema. BACK: Nontender without obvious deformity. No CVA tenderness. Course Initial Documented Vital Signs Temperature 98.2 F 09/04/18 23:33 Pulse Rate 92 H 09/04/18 23:33 Respiratory Rate 18 09/04/18 23:33 Blood Pressure 143/72 H 09/04/18 23:33 Pulse Oximetry 98 09/04/18 23:33 Last Documented Vital Signs Temperature 98.2 F 09/04/18 23:33 Pulse Rate 84 09/05/18 01:59 Respiratory Rate 15 09/05/18 01:59 Blood Pressure 123/75 09/05/18 01:59 Pulse Oximetry 99 09/05/18 03:40 Medical Decision Making MDM Narrative Medical decision making narrative: Patient with complete extensive workup and intervention 9:55 AM 09/04/18 patient was subsequently seen in the [facility] clinic by her primary care provider. Patient was provided prescription for Phenergan and Percocet and given samples of Zofran. Patient states she did not get out of the clinic until 9:30 PM and could not fill her prescriptions and presents now because of persistent pain. On physical exam vital signs grossly within normal range except for mild hypertension, abdomen soft nontender to direct palpation no guarding or rebound and only mild tenderness to percussion of the left flank no right flank tenderness. Patient identified to have hyperglycemia of 489 given bolus of normal saline along with regular insulin 8 units x1 dose bicarb is mildly depressed at 20.3 with elevated anion gap of 16 patient denies alcohol use or substance ingestion. No increased aspirin use. Patient does not take metformin. Patient identified on earlier lab work to have decreased serum bicarb of 11 but when compared with ABG bicarb was 23. Patient's serum acetone was not elevated. Patient had no ketonuria. Patient here continues to complain of pain after Toradol. Patient given morphine sulfate 3 mg IV has already received Zofran. Additional studies EKG sinus rhythm with no acute ST elevation injury pattern or ectopy venous pH within normal range at 7.38 bicarb is 25.8 as hemoglobin is elevated at 4.4% earlier had been at 2.7% so slight increase of unclear etiology. Repeat urinalysis and a lactic acid pending; BHB: 0.11, not elevated. Receiving calcium replacement as serum calcium 7 and protein corrected calcium is 7.3; serum potassium and serum magnesium. Discussed with Dr Elmore --obs admit Medical Screen Exam Complete: Yes Emergency Medical Condition: Yes Differential Diagnosis Differential Diagnosis: Flank pain, enteritis, uncontrolled diabetes, electrolyte disturbance, dehydration, UTI, sepsis, renal insufficiency, adverse medication reaction Medical Records Medical records reviewed: Yes I reviewed the patient's medical records. Lab Data Lab results reviewed: Yes I reviewed the patient's lab results. Result diagrams: 09/05/18 01:20 09/05/18 00:45 Lab Results 09/05/18 09/05/18 09/05/18 Range/Units 00:45 01:20 01:50 CBC w Diff Slide review pending WBC 5.7 (4.0-11.0) th/mm3 RBC 3.91 L (4.00-5.30) mil/mm3 Hgb 12.2 (11.6-15.3) gm/dL Hct 32.2 L (35.0-46.0) % MCV 82.4 (80.0-100.0) fL MCH 31.2 (27.0-34.0) pg MCHC 37.9 H (32.0-36.0) % RDW 12.5 (11.6-17.2) % Plt Count 203 (150-450) th/mm3 MPV 8.0 (7.0-11.0) fL WBC Differential Manual diff final Seg Neuts % (Manual) 57 (16-70) % Band Neuts % (Manual) 1 (0-6) % Lymphocytes % (Manual) 34 (9-44) % Monocytes % (Manual) 4 (0-8) % Eosinophils % (Manual) 2 (0-4) % Basophils % (Manual) 1 (0-2) % Metamyelocytes % (Man) 1 (0-1) % Abs Neuts (Manual) 3.4 (1.8-7.7) th/mm3 Differential Comment . Platelet Estimate Normal (Normal) Platelet Morphology Normal (Normal) RBC Morphology Normal (Normal) Hematology Comments Puncture Site Rt arm Patient Temperature 98.6 VBG pH 7.38 (7.360-7.400) VBG pCO2 45 (44-48) mmHG VBG pO2 57 H (35-40) mmHG VBG HCO3 26 (22-26) mmol/L VBG O2 Saturation 84 H (70-76) % VBG O2 Content 14.0 (9.0-17.0) Vol % VBG Base Excess 1.2 (-2-2) mmol/L VBG Carboxyhemoglobin 0.8 (0-4) % VBG Methemoglobin 4.4 H* (0-2) % Hemoglobin 11.9 L (12.0-16.0) G/DL O2 Delivery Device Room air Inspired O2 21 % Critical Value Yes Sodium 130 L (136-145) meq/L Potassium 3.6 (3.5-5.1) meq/L Chloride 94 L (98-107) meq/L Carbon Dioxide 20.3 L (21.0-32.0) meq/L Anion Gap 16 H (5-15) meq/L BUN 11 (7-18) mg/dL Creatinine 0.78 (0.50-1.00) mg/dL Estimated GFR 79 L (>89) mL/min POC Glucose (68-110) mg/dl Random Glucose 489 H* (74-106) mg/dL Lactic Acid (0.4-2.0) mmol/L Calcium 7.0 L* D (8.5-10.1) mg/dL Prot Corrected Calcium 7.3 L* (8.5-10.1) mg/dL Magnesium 1.8 (1.5-2.5) mg/dL Total Bilirubin 0.6 (0.2-1.0) mg/dL AST 30 (15-37) U/L ALT 43 (10-53) U/L Alkaline Phosphatase 112 (45-117) U/L Total Protein 6.6 (6.4-8.2) g/dL Albumin 3.0 L (3.4-5.0) g/dL Lipase 235 (73-393) U/L Beta-Hydroxybutyric Acd (0.00-0.39) mmol/L Urine Color (Yellw/Straw) Urine Clarity (Clear) Urine pH (5.0-8.5) Ur Specific [place] (1.002-1.035) Urine Protein (Neg-Trace) mg/dL Urine Glucose (UA) (Negative) mg/dL Urine Ketones (Negative) mg/dL Urine Occult Blood (Negative) Urine Nitrate (Negative) Urine Bilirubin (Negative) Urine Urobilinogen (Less than 2) mg/dL Ur Leukocyte Esterase (Negative) Urine RBC (0-3) /hpf Urine WBC (0-5) /hpf Ur Squamous Epith Cells (0-5) /hpf Ur Microscopic Review 09/05/18 09/05/18 09/05/18 Range/Units 01:55 01:55 02:25 CBC w Diff WBC (4.0-11.0) th/mm3 RBC (4.00-5.30) mil/mm3 Hgb (11.6-15.3) gm/dL Hct (35.0-46.0) % MCV (80.0-100.0) fL MCH (27.0-34.0) pg MCHC (32.0-36.0) % RDW (11.6-17.2) % Plt Count (150-450) th/mm3 MPV (7.0-11.0) fL WBC Differential Seg Neuts % (Manual) (16-70) % Band Neuts % (Manual) (0-6) % Lymphocytes % (Manual) (9-44) % Monocytes % (Manual) (0-8) % Eosinophils % (Manual) (0-4) % Basophils % (Manual) (0-2) % Metamyelocytes % (Man) (0-1) % Abs Neuts (Manual) (1.8-7.7) th/mm3 Differential Comment Platelet Estimate (Normal) Platelet Morphology (Normal) RBC Morphology (Normal) Hematology Comments Puncture Site Patient Temperature VBG pH (7.360-7.400) VBG pCO2 (44-48) mmHG VBG pO2 (35-40) mmHG VBG HCO3 (22-26) mmol/L VBG O2 Saturation (70-76) % VBG O2 Content (9.0-17.0) Vol % VBG Base Excess (-2-2) mmol/L VBG Carboxyhemoglobin (0-4) % VBG Methemoglobin (0-2) % Hemoglobin (12.0-16.0) G/DL O2 Delivery Device Inspired O2 % Critical Value Sodium (136-145) meq/L Potassium (3.5-5.1) meq/L Chloride (98-107) meq/L Carbon Dioxide (21.0-32.0) meq/L Anion Gap (5-15) meq/L BUN (7-18) mg/dL Creatinine (0.50-1.00) mg/dL Estimated GFR (>89) mL/min POC Glucose (68-110) mg/dl Random Glucose (74-106) mg/dL Lactic Acid 0.6 (0.4-2.0) mmol/L Calcium (8.5-10.1) mg/dL Prot Corrected Calcium (8.5-10.1) mg/dL Magnesium (1.5-2.5) mg/dL Total Bilirubin (0.2-1.0) mg/dL AST (15-37) U/L ALT (10-53) U/L Alkaline Phosphatase (45-117) U/L Total Protein (6.4-8.2) g/dL Albumin (3.4-5.0) g/dL Lipase (73-393) U/L Beta-Hydroxybutyric Acd 0.11 (0.00-0.39) mmol/L Urine Color Yellow (Yellw/Straw) Urine Clarity Clear (Clear) Urine pH 6.5 (5.0-8.5) Ur Specific [place] 1.010 (1.002-1.035) Urine Protein Negative (Neg-Trace) mg/dL Urine Glucose (UA) 1000 or greater H (Negative) mg/dL Urine Ketones Negative (Negative) mg/dL Urine Occult Blood Negative (Negative) Urine Nitrate Negative (Negative) Urine Bilirubin Negative (Negative) Urine Urobilinogen 0.2 (Less than 2) mg/dL Ur Leukocyte Esterase Negative (Negative) Urine RBC 0-3 (0-3) /hpf Urine WBC 0-5 (0-5) /hpf Ur Squamous Epith Cells 0-5 (0-5) /hpf Ur Microscopic Review Microscopic reviewed 09/05/18 Range/Units 03:23 CBC w Diff WBC (4.0-11.0) th/mm3 RBC (4.00-5.30) mil/mm3 Hgb (11.6-15.3) gm/dL Hct (35.0-46.0) % MCV (80.0-100.0) fL MCH (27.0-34.0) pg MCHC (32.0-36.0) % RDW (11.6-17.2) % Plt Count (150-450) th/mm3 MPV (7.0-11.0) fL WBC Differential Seg Neuts % (Manual) (16-70) % Band Neuts % (Manual) (0-6) % Lymphocytes % (Manual) (9-44) % Monocytes % (Manual) (0-8) % Eosinophils % (Manual) (0-4) % Basophils % (Manual) (0-2) % Metamyelocytes % (Man) (0-1) % Abs Neuts (Manual) (1.8-7.7) th/mm3 Differential Comment Platelet Estimate (Normal) Platelet Morphology (Normal) RBC Morphology (Normal) Hematology Comments Puncture Site Patient Temperature VBG pH (7.360-7.400) VBG pCO2 (44-48) mmHG VBG pO2 (35-40) mmHG VBG HCO3 (22-26) mmol/L VBG O2 Saturation (70-76) % VBG O2 Content (9.0-17.0) Vol % VBG Base Excess (-2-2) mmol/L VBG Carboxyhemoglobin (0-4) % VBG Methemoglobin (0-2) % Hemoglobin (12.0-16.0) G/DL O2 Delivery Device Inspired O2 % Critical Value Sodium (136-145) meq/L Potassium (3.5-5.1) meq/L Chloride (98-107) meq/L Carbon Dioxide (21.0-32.0) meq/L Anion Gap (5-15) meq/L BUN (7-18) mg/dL Creatinine (0.50-1.00) mg/dL Estimated GFR (>89) mL/min POC Glucose 326 H (68-110) mg/dl Random Glucose (74-106) mg/dL Lactic Acid (0.4-2.0) mmol/L Calcium (8.5-10.1) mg/dL Prot Corrected Calcium (8.5-10.1) mg/dL Magnesium (1.5-2.5) mg/dL Total Bilirubin (0.2-1.0) mg/dL AST (15-37) U/L ALT (10-53) U/L Alkaline Phosphatase (45-117) U/L Total Protein (6.4-8.2) g/dL Albumin (3.4-5.0) g/dL Lipase (73-393) U/L Beta-Hydroxybutyric Acd (0.00-0.39) mmol/L Urine Color (Yellw/Straw) Urine Clarity (Clear) Urine pH (5.0-8.5) Ur Specific [place] (1.002-1.035) Urine Protein (Neg-Trace) mg/dL Urine Glucose (UA) (Negative) mg/dL Urine Ketones (Negative) mg/dL Urine Occult Blood (Negative) Urine Nitrate (Negative) Urine Bilirubin (Negative) Urine Urobilinogen (Less than 2) mg/dL Ur Leukocyte Esterase (Negative) Urine RBC (0-3) /hpf Urine WBC (0-5) /hpf Ur Squamous Epith Cells (0-5) /hpf Ur Microscopic Review ECG Data Interpretation: EKG: Normal sinus rhythm rate 80 left axis deviation no acute ST elevation injury pattern or ectopy noted Discharge Plan Discharge Disposition Patient Disposition: 30 Still Patient Discharge Condition Condition: Stable Discharge Details Diagnosis: Enteritis, Poorly controlled diabetes mellitus Physicians Team ED Provider: Genny Zazueta Primary Care Provider: Graham Yu Attending Provider: Mila Elmore Status ED Status: Admitted Observation Patient
[2018-09-05 01:07] LABS: Potassium 3.6 meq/L (3.5-5.1)
[2018-09-05 01:22] LABS: Carbon Dioxide 20.3 meq/L (21.0-32.0); Magnesium 1.8 mg/dL (1.5-2.5)
[2018-09-05] MEDS ORDERED: Morphine Inj 4 MG/ML Vial IV.PUSH ONE (01:22)
[2018-09-05 01:33] LABS: Hematocrit 32.2 % (35.0-46.0); Hemoglobin 12.2 gm/dL (11.6-15.3); Mean Corpuscular Hemoglobin 31.2 pg (27.0-34.0); Mean Corpuscular Volume 82.4 fL (80.0-100.0); Platelet Count 203 th/mm3 (150-450); Red Blood Count 3.91 mil/mm3 (4.00-5.30); Red Cell Distribution Width 12.5 % (11.6-17.2); White Blood Count 5.7 th/mm3 (4.0-11.0)
[2018-09-05 01:35] LABS: Total Protein 6.6 g/dL (6.4-8.2)
[2018-09-05] MEDS ORDERED: Calcium Gluconate Inj 1 GM in Sodium Chlor 0.9% Inj 100 ML IV.SIG ONE (01:35)
[2018-09-05 01:44] LABS: Mean Corpuscular HGB Conc 37.9 % (32.0-36.0)
[2018-09-05 02:02] LABS: VBG Base Excess 1.2 mmol/L (-2-2); VBG PCO2 45 mmHG (44-48); VBG PH 7.38 (7.360-7.400); VBG PO2 57 mmHG (35-40)
[2018-09-05 02:36] LABS: Bilirubin,Urine Negative (Negative); Clarity,Urine Clear (Clear); Color,Urine Yellow (Yellw/Straw); Leukocyte Esterase,Urine Negative (Negative); Nitrite,Urine Negative (Negative); PH,Urine 6.5 (5.0-8.5); Urobilinogen,Urine 0.2 mg/dL (Less than 2)
[2018-09-05 02:37] LABS: Eosinophils 2 % (0-4); Lymphocytes 34 % (9-44); Metamyelocytes 1 % (0-1); Monocytes 4 % (0-8); Platelet Estimate Normal (Normal); Platelet Morphology Normal (Normal); RBC Morphology Normal (Normal)
[2018-09-05 02:40] LABS: RBC,Urine 0-3 /hpf (0-3); Squamous Epithelial Cell,Urine 0-5 /hpf (0-5); WBC,Urine 0-5 /hpf (0-5)
[2018-09-05] MEDS ORDERED: Acetaminophen 325 MG Tablet PO PRN (03:43)
[2018-09-05] MEDS ORDERED: Dextrose 50% in Water 50 ML Vial IV.PUSH PRN (03:43)
[2018-09-05] MEDS ORDERED: Bisacodyl 10 MG Supp RECTAL PRN (03:43)
[2018-09-05] MEDS ORDERED: Piperacil/Tazo 4.5 GM Premix 4.5 GM/100 ML BAG IV.SIG SCH (04:00)
[2018-09-05] MEDS ORDERED: Sodium Chlor 0.9% Inj 500 ML IV.SIG SCH (04:00)
[2018-09-05] MEDS: Sod Chloride 0.9% Inj 1,000 ML IV.CONT SCH ×2 (05:42→16:58)
[2018-09-05] MEDS: Morphine Sulfate Inj 2 MG/ML Vial IV.PUSH PRN ×4 (05:42→17:49)
[2018-09-05] MEDS: Insulin NovoLOG Aspart Correctional Sugar Inj SQ SCH ×4 (08:11→20:39)
[2018-09-05] MEDS: Senna/Docusate Sodium 8.6/50 MG Tablet PO SCH ×2 (08:13→20:39)
--- NOTE | 2018-09-05 08:41 | P.HPIM ---
History of Present Illness Primary Care Physician: Graham Yu MD Chief Complaint: left flank pain History of Present Illness: patient is a 48 y/o female with history of diabetes mellitus who presented to ER with pain to the left flank. she says that the pain started few days ago. the pain initially subsided it came back after a couple of days. the pain is in the left flank with no radiation. the pain is moderate in intensity. she says that she had some nausea and vomiting. she had diarrhea which has improved. she denies any fever. she denies any urinary complaints including dysuria or hematuria. she came to ER and was discharged home but because of persistent pain she came back to ER. she says that she was using insulin before but because of the cost she stopped using it and was started on Metformin. she says that because her blood sugar was not under control she was started back on insulin just recently. Review of Systems All other systems reviewed negative except as stated in HPI PMFSH - History History Provided By: Patient - Medical History Medical History: Medical History (Last Updated 09/05/18 @ 08:37 by Hilary Bright MD) H/O: hysterectomy Asthma Cholecystitis Diabetes 1.5, managed as type 2 Fatty liver H/O: hysterectomy Hepatitis C - Family History Family History: Family History (Last Updated 09/05/18 @ 08:37 by Hilary Bright MD) Other No pertinent family history - Tobacco History Second Hand Smoke Exposure: No Tobacco Use In Past 30 Days: No (2014) Smoking Status: Former smoker - Alcohol History How Often Do You Have a Drink Containing Alcohol: Never - Substance Use History Substance History: No History of Abuse - Travel History Recent Travel in the [place] Within the Last 8 Weeks: No Recent Travel Out of the Country Within the Last 8 Weeks: No - Immunization History Tetanus Immunization: <5 Years Medications and Allergies Active Medications: Active Medications Acetaminophen (Tylenol) 650 mg PO Q4H PRN PRN Reason: Temp > 100.4 Al Hydroxide/Mg Hydroxide (Milk Of Magnesia Liq) 30 ml PO Q12H PRN PRN Reason: Mild Constipation Bisacodyl (Dulcolax Supp) 10 mg RECTAL DAILY PRN PRN Reason: SEVERE CONSITIPATION Dextrose (D50w Vial) 50 ml IV.PUSH UNSCH PRN PRN Reason: PER HYPOGLYCEMIA PROTOCOL Glucagon (Glucagon Inj) 1 mg OTHER PRN PRN PRN Reason: for Hypoglycemia Protocol Sodium Chloride (Ns Inj) 1,000 mls @ 0 mls/hr IV.SIG BOLUS CATALINA Last Infusion: 09/05/18 03:51 Dose: 0 mls/hr Sodium Chloride (Ns Inj) 500 mls @ 0 mls/hr IV.SIG BOLUS [place] Last Infusion: 09/05/18 05:33 Dose: Infused Sodium Chloride (Ns Inj) 1,000 mls @ 100 mls/hr IV.CONT .Q10H CATALINA Last Admin: 09/05/18 05:42 Dose: 100 mls/hr Piperacillin/Tazobactam/Dextrose (Zosyn 4.5 Gm Premix) 4.5 gm in 100 mls @ 200 mls/hr IV.SIG Q6H CAT[place] Insulin Aspart (Novolog Insulin Correctional Sugar Inj) 0 unit SQ ACHS CATALINA; Protocol Last Admin: 09/05/18 08:11 Dose: 5 unit Lactulose (Lactulose Liq) 30 ml PO DAILY PRN PRN Reason: SEVERE CONSITIPATION Morphine Sulfate (Morphine Inj) 2 mg IV.PUSH Q4H PRN PRN Reason: PAIN 6-10 Last Admin: 09/05/18 05:42 Dose: 2 mg Ondansetron HCl (Zofran Inj) 4 mg IV.PUSH Q6H PRN PRN Reason: NAUSEA OR VOMITING Senna/Docusate Sodium ([place]berta-Colace) 1 tab PO BID CATALINA Last Admin: 09/05/18 08:13 Dose: 1 tab Sennosides (Senokot) 17.2 mg PO Q12H PRN PRN Reason: Moderate Constipation Last Admin: 09/05/18 08:13 Dose: 17.2 mg Sodium Chloride (Ns Flush) 2 ml IV.FLUSH PRN PRN PRN Reason: FLUSH AFTER USING IV ACCESS Allergies Allergy/AdvReac Type Severity Reaction Status Date / Time ciprofloxacin Allergy Intermediate Hives Verified 09/05/18 00:10 Home Medications Medication Instructions Recorded Confirmed Type ibuprofen 800 mg PO QID PRN 09/04/18 09/04/18 History insulin detemir U-100 [Levemir 10 unit SUBCUT QPM 09/05/18 09/05/18 History U-100 Insulin] oxycodone-acetaminophen [Percocet] 1 tab PO Q4-6H PRN 09/05/18 09/05/18 History Exam Vital signs: Vital Signs 09/04/18 23:33 09/05/18 01:59 09/05/18 03:40 Temperature 98.2 F Pulse Rate 92 H 84 Respiratory Rate 18 15 Blood Pressure 143/72 H 123/75 Pulse Oximetry 98 95 99 09/05/18 04:32 09/05/18 05:21 Temperature 97.3 F L Pulse Rate 78 79 Respiratory Rate 15 18 Blood Pressure 135/84 153/84 H Pulse Oximetry 96 100 Intake & Output 09/04/18 09/05/18 09/05/18 18:59 06:59 18:59 Intake Total 2210 / 2210 Balance 2210 / 2210 Weight 78.1 kg Intake: IV 2210 / 2210 Calcium Gluconate Inj 1 GM In 110 / 110 NS Inj 100 ML @ 110 mls/hr IV. SIG ONCE ONE Rx#:[id number] Zosyn 4.5 GM Premix 4.5 gm In 100 / 100 100 ml @ 200 mls/hr IV.SIG Q6H CAT[place]INA Rx#:[id number] NS Inj 1,000 ML @ Wide Open IV. 1500 / 1500 SIG BOLUS ONE Rx#:[id number] NS Inj 500 ML @ Wide Open IV. 500 / 500 SIG BOLUS CATALINA Rx#:[id number] Other: # Voids 1 Date of Last Bowel Movement 09/04/18 Weight On Admission 78.1 kg - Constitutional no acute distress - Routine HEENT Exam Eye: Present: PERRL - Routine Neck Exam Present: supple - Routine Respiratory Exam Present: CTA bilaterally - Routine Cardiovascular Exam Present: RRR - Routine Abdominal Exam Present: soft - Routine Extremities Exam Comments: no pedal edema. - Routine Neurological Exam Present: alert, oriented X3 Results - Labs CBC & Chem 7: 09/05/18 01:20 09/05/18 00:45 Labs: Short CBC 09/05/18 Range/Units 01:20 WBC 5.7 (4.0-11.0) th/mm3 Hgb 12.2 (11.6-15.3) gm/dL Hct 32.2 L (35.0-46.0) % Plt Count 203 (150-450) th/mm3 BMP 09/05/18 00:45 Sodium 130 L Potassium 3.6 Chloride 94 L Carbon Dioxide 20.3 L BUN 11 Creatinine 0.78 Calcium 7.0 L* D Liver Function 09/05/18 Range/Units 00:45 Total Bilirubin 0.6 (0.2-1.0) mg/dL AST 30 (15-37) U/L ALT 43 (10-53) U/L Alkaline Phosphatase 112 (45-117) U/L Albumin 3.0 L (3.4-5.0) g/dL Urine 09/05/18 Range/Units 02:25 Urine Color Yellow (Yellw/Straw) Urine Clarity Clear (Clear) Urine pH 6.5 (5.0-8.5) Ur Specific [place] 1.010 (1.002-1.035) Urine Protein Negative (Neg-Trace) mg/dL Urine Glucose (UA) 1000 or greater H (Negative) mg/dL Caprini VTE Risk Assessment Caprini VTE Risk Assessment: No/Low Risk (score <= 1) Caprini Risk Assessment Model: Point Value = 1 Point Value = 2 Point Value = 3 Point Value = 5 Age 41-60 Minor surgery BMI > 25 kg/m2 Swollen legs Varicose veins or History of unexplained or recurrent spontaneous Oral contraceptives or hormone replacement Sepsis (< 1 month) Serious lung disease, including pneumonia (< 1 month) Abnormal pulmonary function Acute myocardial infarction Congestive heart failure (< 1 month) History of inflammatory bowel disease Medical patient at bed rest Age 61-74 Arthroscopic surgery Major open surgery (> 45 min) Laparoscopic surgery (> 45 min) Malignancy Confined to bed (> 72 hours) Immobilizing plaster cast Central venous access Age >= 75 History of VTE Family history of VTE Factor V Leiden Prothrombin [id number] Lupus anticoagulant Anticardiolipin antibodies Elevated serum homocysteine Heparin-induced thrombocytopenia Other congenital or acquired thrombophilia Stroke (< 1 month) Elective arthroplasty Hip, pelvis, or leg fracture Acute spinal cord injury (< 1 month) Prophylaxis Regimen: Total Risk Factor Score Risk Level Prophylaxis Regimen 0-1 Low Early ambulation 2 Moderate Order ONE of the following: *Sequential Compression Device (SCD) *Heparin 5000 units SQ BID 3-4 Higher Order ONE of the following medications: *Heparin 5000 units SQ TID *Enoxaparin/Lovenox 40 mg SQ daily (WT < 150 kg, CrCl > 30 mL/min) *Enoxaparin/Lovenox 30 mg SQ daily (WT < 150 kg, CrCl > 10-29 mL/min) *Enoxaparin/Lovenox 30 mg SQ BID (WT < 150 kg, CrCl > 30 mL/min) AND/OR *Sequential Compression Device (SCD) 5 or more Highest Order ONE of the following medications: *Heparin 5000 units SQ TID (Preferred with Epidurals) *Enoxaparin/Lovenox 40 mg SQ daily (WT < 150 kg, CrCl > 30 mL/min) *Enoxaparin/Lovenox 30 mg SQ daily (WT < 150 kg, CrCl > 10-29 mL/min) *Enoxaparin/Lovenox 30 mg SQ BID (WT < 150 kg, CrCl > 30 mL/min) AND *Sequential Compression Device (SCD) Assessment and Plan - Plan A/P - abdominal pain/ possible enteritis keep NPO- continue supportive care with IV fluid, pain control and antiemetics. -diabetes mellitus; uncontrolled will continue with acu-check with SSI- start on levemir soon- when back on diet. -hyponatremia- likely due to hyperglycemia- will monitor -hypocalcemia; will repeat the level today and replace as needed. Discussed Condition With: the patient. Discharge Planning: home when clinically improved. H&P: Quality - VTE Deep Vein Thrombosis/Pulmonary Embolism Present on Admission: No
[2018-09-05] MEDS: Piperacil/Tazo 4.5 GM Premix 4.5 GM/100 ML BAG IV.SIG SCH ×3 (11:34→21:00)
[2018-09-05 12:46] LABS: Chloride 100 meq/L (98-107); Potassium 3.6 meq/L (3.5-5.1); Sodium 135 meq/L (136-145)
[2018-09-05 12:49] LABS: Anion Gap 8 meq/L (5-15); Blood Urea Nitrogen 8 mg/dL (7-18); Calcium 7.6 mg/dL (8.5-10.1); Carbon Dioxide 26.8 meq/L (21.0-32.0); Glucose,Random 257 mg/dL (74-106)
[2018-09-05 12:53] LABS: Glomerular Filtration Rate Greater Than 89 mL/min (>89)
[2018-09-06] MEDS: Sod Chloride 0.9% Inj 1,000 ML IV.CONT SCH ×3 (04:42→19:47)
[2018-09-06] MEDS: Morphine Sulfate Inj 2 MG/ML Vial IV.PUSH PRN ×2 (04:43→09:17)
[2018-09-06] MEDS: Piperacil/Tazo 4.5 GM Premix 4.5 GM/100 ML BAG IV.SIG SCH ×4 (04:43→22:29)
[2018-09-06 07:26] LABS: Hematocrit 36.8 % (35.0-46.0); Hemoglobin 12.9 gm/dL (11.6-15.3); Mean Corpuscular HGB Conc 35.2 % (32.0-36.0); Mean Corpuscular Hemoglobin 29.4 pg (27.0-34.0); Mean Corpuscular Volume 83.6 fL (80.0-100.0); Mean Platelet Volume 8.1 fL (7.0-11.0); Platelet Count 216 th/mm3 (150-450); Red Cell Distribution Width 11.9 % (11.6-17.2); White Blood Count 6.3 th/mm3 (4.0-11.0)
[2018-09-06 07:44] LABS: Chloride 99 meq/L (98-107); Potassium 3.3 meq/L (3.5-5.1); Sodium 135 meq/L (136-145)
[2018-09-06 07:52] LABS: Glucose,Random 248 mg/dL (74-106)
[2018-09-06 07:53] LABS: Albumin 2.9 g/dL (3.4-5.0); Anion Gap 8 meq/L (5-15); Calcium 7.5 mg/dL (8.5-10.1)
[2018-09-06 07:54] LABS: Blood Urea Nitrogen 7 mg/dL (7-18)
[2018-09-06 07:57] LABS: Glomerular Filtration Rate Greater Than 89 mL/min (>89)
[2018-09-06 07:58] LABS: Total Protein 6.2 g/dL (6.4-8.2)
[2018-09-06 07:59] LABS: Alkaline Phosphatase 100 U/L (45-117)
[2018-09-06] MEDS: Insulin NovoLOG Aspart Correctional Sugar Inj SQ SCH ×4 (08:10→20:48)
[2018-09-06 08:19] LABS: Alanine Aminotransferase 76 U/L (10-53); Aspartate Aminotransferase 92 U/L (15-37)
[2018-09-06 08:33] LABS: Eosinophils 2 % (0-4); Lymphocytes 15 % (9-44); Monocytes 8 % (0-8)
[2018-09-06 08:34] LABS: Platelet Estimate Normal (Normal); Platelet Morphology Normal (Normal); RBC Morphology Normal (Normal)
[2018-09-06] MEDS: Senna/Docusate Sodium 8.6/50 MG Tablet PO SCH ×2 (09:16→20:40)
--- NOTE | 2018-09-06 09:38 | P.PNIM ---
Subjective Interval history: f/u; abdominal pain in no acute distress. still has some abdominal pain and nausea but seems to be tolerating the clear liquid diet. no fever. d/w the RN. Physical Exam Vital signs: Vital Signs 09/05/18 11:29 09/05/18 12:00 09/05/18 16:00 Temperature 96.6 F L 97.4 F L Pulse Rate 73 76 Respiratory Rate 20 18 18 Blood Pressure 124/61 128/71 Pulse Oximetry 96 97 09/05/18 19:55 09/05/18 20:00 09/06/18 00:00 Temperature 96.4 F L 98.0 F Pulse Rate 82 81 Respiratory Rate 19 20 Blood Pressure 148/84 H 128/75 Pulse Oximetry 99 95 96 09/06/18 08:00 09/06/18 08:12 Temperature 98.5 F Pulse Rate 78 Respiratory Rate 18 Blood Pressure 111/65 Pulse Oximetry 95 97 Intake & Output 09/05/18 09/06/18 09/06/18 18:59 06:59 18:59 Intake Total 2200 / 2200 840 / 840 1000 / 1000 Balance 2200 / 2200 840 / 840 1000 / 1000 Weight 78 kg Intake: IV 2200 / 2200 200 / 200 1000 / 1000 NS Inj 1,000 ML @ 100 mls/hr IV 2000 / 2000 1000 / 1000 .CONT .Q10H [facility] Rx#:[id number] Zosyn 4.5 GM Premix 4.5 gm In 200 / 200 200 / 200 100 ml @ 200 mls/hr IV.SIG Q6H [facility] Rx#:[id number] Oral 640 / 640 Other: # Voids 3 Date of Last Bowel Movement 09/04/18 09/05/18 - Constitutional no acute distress - Routine Respiratory Exam Present: CTA bilaterally - Routine Cardiovascular Exam Present: RRR - Routine Abdominal Exam Present: soft, tenderness (left upper Quadrant.) - Routine Extremities Exam Comments: no pedal edema. - Routine Neurological Exam Present: alert, oriented X3 Results - Labs CBC & Chem 7: 09/06/18 06:50 09/06/18 06:50 Laboratory Results - last 24 hr 09/05/18 09/05/18 09/05/18 11:15 11:55 15:59 CBC w Diff WBC RBC Hgb Hct MCV MCH MCHC RDW Plt Count MPV WBC Differential Seg Neuts % (Manual) Band Neuts % (Manual) Lymphocytes % (Manual) Monocytes % (Manual) Eosinophils % (Manual) Basophils % (Manual) Abs Neuts (Manual) Differential Comment Platelet Estimate Platelet Morphology RBC Morphology Sodium 135 L Potassium 3.6 Chloride 100 Carbon Dioxide 26.8 Anion Gap 8 BUN 8 Creatinine 0.52 Estimated GFR Greater than 89 POC Glucose 206 H 196 H Random Glucose 257 H D Calcium 7.6 L Total Bilirubin AST ALT Alkaline Phosphatase Total Protein Albumin 09/05/18 09/06/18 09/06/18 20:38 06:50 06:50 CBC w Diff Slide review pending WBC 6.3 RBC 4.40 Hgb 12.9 Hct 36.8 MCV 83.6 MCH 29.4 MCHC 35.2 RDW 11.9 Plt Count 216 MPV 8.1 WBC Differential Manual diff final Seg Neuts % (Manual) 73 H Band Neuts % (Manual) 1 Lymphocytes % (Manual) 15 Monocytes % (Manual) 8 Eosinophils % (Manual) 2 Basophils % (Manual) 1 Abs Neuts (Manual) 4.7 Differential Comment . Platelet Estimate Normal Platelet Morphology Normal RBC Morphology Normal Sodium 135 L Potassium 3.3 L Chloride 99 Carbon Dioxide 28.0 Anion Gap 8 BUN 7 Creatinine 0.58 Estimated GFR Greater than 89 POC Glucose 194 H Random Glucose 248 H Calcium 7.5 L Total Bilirubin 0.6 AST 92 H ALT 76 H Alkaline Phosphatase 100 Total Protein 6.2 L Albumin 2.9 L 09/06/18 07:40 CBC w Diff WBC RBC Hgb Hct MCV MCH MCHC RDW Plt Count MPV WBC Differential Seg Neuts % (Manual) Band Neuts % (Manual) Lymphocytes % (Manual) Monocytes % (Manual) Eosinophils % (Manual) Basophils % (Manual) Abs Neuts (Manual) Differential Comment Platelet Estimate Platelet Morphology RBC Morphology Sodium Potassium Chloride Carbon Dioxide Anion Gap BUN Creatinine Estimated GFR POC Glucose 173 H Random Glucose Calcium Total Bilirubin AST ALT Alkaline Phosphatase Total Protein Albumin Assessment and Plan - Plan A/P - abdominal pain/ possible enteritis advance the diet slowly. continue supportive care with IV fluid, pain control and antiemetics. -diabetes mellitus; uncontrolled will continue with acu-check with SSI- -hyponatremia- likely due to hyperglycemia- improved. -hypocalcemia; improved. Discharge Planning: home when clinically improved; possibly within the next 24-48 hrs.
[2018-09-06] MEDS ORDERED: Morphine Sulfate Inj 2 MG/ML Vial IV.PUSH PRN (09:40)
[2018-09-07] MEDS: Piperacil/Tazo 4.5 GM Premix 4.5 GM/100 ML BAG IV.SIG SCH ×2 (04:26→09:28)
[2018-09-07] MEDS: Sod Chloride 0.9% Inj 1,000 ML IV.CONT SCH (05:32)
[2018-09-07] MEDS: Insulin NovoLOG Aspart Correctional Sugar Inj SQ SCH ×2 (08:02→12:19)
[2018-09-07 08:10] LABS: Chloride 102 meq/L (98-107); Potassium 3.3 meq/L (3.5-5.1); Sodium 138 meq/L (136-145)
[2018-09-07 08:13] LABS: Calcium 7.9 mg/dL (8.5-10.1)
[2018-09-07 08:14] LABS: Albumin 2.8 g/dL (3.4-5.0); Anion Gap 7 meq/L (5-15); Blood Urea Nitrogen 6 mg/dL (7-18); Carbon Dioxide 28.9 meq/L (21.0-32.0); Glucose,Random 201 mg/dL (74-106)
[2018-09-07 08:17] LABS: Glomerular Filtration Rate Greater Than 89 mL/min (>89)
[2018-09-07 08:18] LABS: Total Protein 6.3 g/dL (6.4-8.2)
[2018-09-07 08:19] LABS: Alkaline Phosphatase 90 U/L (45-117)
[2018-09-07 08:56] LABS: Alanine Aminotransferase 36 U/L (10-53); Aspartate Aminotransferase 23 U/L (15-37)
[2018-09-07 09:09] VITALS: RESP 18; O2SAT 96
[2018-09-07] MEDS: Senna/Docusate Sodium 8.6/50 MG Tablet PO SCH (09:28)
[2018-09-07] MEDS ORDERED: Senna/Docusate Sodium 8.6/50 MG Tablet PO PRN (11:34)
--- NOTE | 2018-09-07 11:37 | P.PNIM ---
Subjective Interval history: Patient seen and examined this morning. Afebrile vital signs stable. Patient reports that her abdominal pain is improving and that she is tolerating clear liquid diet and would like to progress to a regular diet. She denies having a bowel movement in the last 3 days. She is hopeful for going home soon. If able to tolerate a regular diet and has a bowel movement patient could be cleared for discharge but until then wish to continue monitoring. Patient understands and agrees this plan of care. Physical Exam Vital signs: Vital Signs 09/06/18 12:00 09/06/18 16:00 09/06/18 20:00 Temperature 97.9 F 98.3 F 96.2 F L Pulse Rate 83 89 79 Respiratory Rate 18 18 20 Blood Pressure 119/76 116/68 121/66 Pulse Oximetry 96 97 97 09/06/18 20:39 09/07/18 00:00 09/07/18 08:00 Temperature 97.4 F L 96.7 F L Pulse Rate 74 76 Respiratory Rate 20 20 18 Blood Pressure 117/57 L 123/75 Pulse Oximetry 97 96 Intake & Output 09/06/18 09/07/18 09/07/18 18:59 06:59 18:59 Intake Total 1200 / 1200 2820 / 2820 100 / 100 Balance 1200 / 1200 2820 / 2820 100 / 100 Weight 76.5 kg Intake: IV 1200 / 1200 2100 / 2100 100 / 100 NS Inj 1,000 ML @ 100 mls/hr IV 1000 / 1000 1900 / 1900 .CONT .Q10H [facility] Rx#:[id number] Zosyn 4.5 GM Premix 4.5 gm In 200 / 200 200 / 200 100 / 100 100 ml @ 200 mls/hr IV.SIG Q6H [facility] Rx#:[id number] Oral 720 / 720 Other: # Voids 8 2 Date of Last Bowel Movement 09/05/18 # Bowel Movements 0 0 Narrative: GEN: Well-developed, well-nourished patient. No acute distress. CV: Regular rate and rhythm without obvious murmurs LUNGS: Clear to auscultation bilaterally. Normal respiratory effort. No wheezes , rales, rhonchi. GI: Soft, mild tenderness to palpation focal to the epigastric region, nondistended. No palpable masses. Bowel sounds WNL. EXT: No edema. NEURO/PSYCH: Afocal. Awake, alert, and oriented x3. Appropriate insight and judgment. Results - Labs CBC & Chem 7: 09/06/18 06:50 09/07/18 06:55 Laboratory Results - last 24 hr 09/06/18 09/06/18 09/06/18 11:27 17:06 20:42 Sodium Potassium Chloride Carbon Dioxide Anion Gap BUN Creatinine Estimated GFR POC Glucose 258 H 353 H 252 H Random Glucose Calcium Total Bilirubin AST ALT Alkaline Phosphatase Total Protein Albumin 09/07/18 09/07/18 06:55 07:38 Sodium 138 Potassium 3.3 L Chloride 102 Carbon Dioxide 28.9 Anion Gap 7 BUN 6 L Creatinine 0.59 Estimated GFR Greater than 89 POC Glucose 160 H Random Glucose 201 H Calcium 7.9 L Total Bilirubin 0.4 AST 23 ALT 36 Alkaline Phosphatase 90 Total Protein 6.3 L Albumin 2.8 L Assessment and Plan - Assessment (1) Enteritis Code(s): K52.9 - Noninfective gastroenteritis and colitis, unspecified Status : Acute (2) Poorly controlled diabetes mellitus Code(s): E11.65 - Type 2 diabetes mellitus with hyperglycemia Status: Acute - Plan There is a 48-year-old female who is been admitted for enteritis - abdominal pain/ possible enteritis advance the diet to diabetic diet. Treat constipation. continue supportive care with IV fluid, pain control and antiemetics. -diabetes mellitus; uncontrolled will continue with acu-check with SSI- -hyponatremia- likely due to hyperglycemia- improved. -hypocalcemia; improved. Code Status: Full code Discharge Planning: Pending tolerating diabetic diet, and bowel movement
--- NOTE | 2018-09-07 14:37 | P.DS ---
Date of admission: 09/05/18 03:49 Primary care physician: Graham Yu MD Anticipated date of discharge: 09/07/18 Brief History from admission: patient is a 48 y/o female with history of diabetes mellitus who presented to ER with pain to the left flank. she says that the pain started few days ago. the pain initially subsided it came back after a couple of days. the pain is in the left flank with no radiation. the pain is moderate in intensity. she says that she had some nausea and vomiting. she had diarrhea which has improved. she denies any fever. she denies any urinary complaints including dysuria or hematuria. she came to ER and was discharged home but because of persistent pain she came back to ER. she says that she was using insulin before but because of the cost she stopped using it and was started on Metformin. she says that because her blood sugar was not under control she was started back on insulin just recently. DS: Diagnosis - Discharge Diagnosis (1) Enteritis Status: Acute (2) Poorly controlled diabetes mellitus Status: Acute DS: Summary Hospital Course: Patient was admitted on 09/05/18 due to severe abdominal pain from enteritis. Her diabetes was also uncontrolled at that time. She has since been been able to get her blood glucose under control. Her abdominal pain has resolved and she is now tolerating a regular diet. On 09/07/18 she is cleared for discharge. - Time Spent with Patient Total time spent providing and/or coordinating discharge services: Less than 30 minutes - Quality: VTE Deep Vein Thrombosis/Pulmonary Embolism Present on Admission: No Exam Vital signs: Vital Signs 09/06/18 16:00 09/06/18 20:00 09/06/18 20:39 Temperature 98.3 F 96.2 F L Pulse Rate 89 79 Respiratory Rate 18 20 20 Blood Pressure 116/68 121/66 Pulse Oximetry 97 97 09/07/18 00:00 09/07/18 08:00 Temperature 97.4 F L 96.7 F L Pulse Rate 74 76 Respiratory Rate 20 18 Blood Pressure 117/57 L 123/75 Pulse Oximetry 97 96 Intake & Output 09/06/18 09/07/18 09/07/18 18:59 06:59 18:59 Intake Total 1200 / 1200 2820 / 2820 100 / 100 Balance 1200 / 1200 2820 / 2820 100 / 100 Weight 76.5 kg Intake: IV 1200 / 1200 2100 / 2100 100 / 100 NS Inj 1,000 ML @ 100 mls/hr IV 1000 / 1000 1900 / 1900 .CONT .Q10H [facility] Rx#:[id number] Zosyn 4.5 GM Premix 4.5 gm In 200 / 200 200 / 200 100 / 100 100 ml @ 200 mls/hr IV.SIG Q6H [facility] Rx#:[id number] Oral 720 / 720 Other: # Voids 8 2 Date of Last Bowel Movement 09/05/18 09/07/18 # Bowel Movements 0 0 1 Results Procedures completed during hospitalization: None Labs on day of discharge: Labs from last 24 hours 09/07/18 09/07/18 09/07/18 11:25 07:38 06:55 Sodium 138 Potassium 3.3 L Chloride 102 Carbon Dioxide 28.9 Anion Gap 7 BUN 6 L Creatinine 0.59 Estimated GFR Greater than 89 POC Glucose 222 H 160 H Random Glucose 201 H Calcium 7.9 L Total Bilirubin 0.4 AST 23 ALT 36 Alkaline Phosphatase 90 Total Protein 6.3 L Albumin 2.8 L 09/06/18 09/06/18 20:42 17:06 Sodium Potassium Chloride Carbon Dioxide Anion Gap BUN Creatinine Estimated GFR POC Glucose 252 H 353 H Random Glucose Calcium Total Bilirubin AST ALT Alkaline Phosphatase Total Protein Albumin Discharge Plan - Discharge Disposition Patient Disposition: 01 Discharge Home - Discharge Condition Condition: Stable - Discharge Order Discharge Orders: Discharge Order (Routine); Ordered 09/07/18 Ordered By: Js Díaz - Discharge Details Anticipated Discharge Date: 09/07/18 - Physicians Team Primary Care Provider: Graham Yu Attending Provider: Js Díaz
[2018-09-07 14:54] VITALS: BP 131/73; PULSE 78; TEMP 96.9
[2018-09-07] MEDS ORDERED: Amoxicillin/Clavulanate 875/125 MG Tablet PO SCH (21:00)
--- NOTE | 2018-09-08 18:05 | ECG ---
Date Performed: 09/05/2018 Time Performed: 01:47:42 PTAGE: 48 years EKG: Sinus rhythm MARKED LEFT AXIS DEVIATION LOW QRS VOLTAGE IN EXTREMITY LEADS ABNORMAL ECG PREVIOUS TRACING : 06/16/2017 10.42 Since the previous tracing, no significant change noted DOCTOR: Isidro Landin Interpretating Date/Time 09/08/2018 18:05:16
== END 2018-09-07 16:54 | disposition home or self-care (01) ==
LOC: PHED 23:31 → PHEDA 23:31 → PH3 09-05 05:06
PROVIDERS: ADMIT Hospitalist; ATTEND Hospitalist